=== PATIENT | male | born 1935 | race Caucasian/White ===

== ENCOUNTER 2020-08-19 09:00 | Outpatient (REF) | payer MEDICARE, SELFPAY ==
[2020-08-19 10:08] LABS: MANUAL DIFF FLAG NO
[2020-08-19 10:21] LABS: Basophils Percent Auto 0.7 % (0-2); Eosinophils Absolute Auto 0.3 X10*3/uL (0.0-0.4); Eosinophils Percent Auto 4.3 % (0-4); Hematocrit 45.1 % (42-52); Hemoglobin 15.2 g/dl (14.0-18.0); Imm Gran Abs Auto 0.02 X10*3/uL (0.00-0.03); Imm Gran Pct Auto 0.3 % (0.0-0.4); Mean Corpuscular HGB Conc 33.7 g/dl (31.0-36.0); Mean Platelet Volume 10.7 fL (9.4-12.4); Monocytes Absolute Auto 0.5 X10*3/uL (0.1-1.2); Monocytes Percent Auto 8.7 % (2-11); Platelet Count 210 X10*3/uL (160-400); Red Blood Count 5.07 X10*6/uL (4.60-5.80); Red Cell Distribution Width 13.1 % (11.0-16.0); White Blood Count 5.8 X10*3/uL (4.8-10.8)
[2020-08-19 10:29] LABS: Glucose Urine UA NEG (NEG); Leukocyte Esterase Urine NEG (NEG); Nitrite Urine NEG (NEG); PH 5.5 (5.0-8.0); Specific Gravity - Urine 1.025 (1.005-1.025); Urine Blood 2+ (NEG); Urine Ketones NEG (NEG); Urine Protein NEG (NEG-TRACE)
[2020-08-19 10:31] LABS: Appearance Urine CLEAR; Color Urine YELLOW
[2020-08-19 10:44] LABS: Alanine Aminotransferase 20 U/L (0-40); Albumin Level 4.2 g/dL (3.5-5.0); Alkaline Phosphatase 114 U/L (39-117); Anion Gap 12 (12-20); Aspartate Amino Transferase 15 U/L (5-37); Bilirubin Total 0.9 mg/dL (0.0-1.0); Blood Urea Nitrogen 21 mg/dL (9-16); Calcium 9.3 mg/dL (8.4-10.2); Carbon Dioxide 30 mmol/L (22-29); Chloride 105 mmol/L (96-108); Cholesterol 114 mg/dL; Estimated Glomerular Filt Rate 51; Glucose Fasting 128 mg/dL (60-99); HDL Cholesterol 29 mg/dL; LDL Cholesterol Calculated 70 mg/dl; Potassium 4.3 mmol/l (3.3-5.1); Sodium 143 mmol/L (135-145); Total Protein 6.6 g/dL (6.5-8.0); Triglycerides 78 mg/dL
[2020-08-19 10:49] LABS: Albumin Level 4.2 g/dL (3.5-5.0); Anion Gap 14 (12-20); Blood Urea Nitrogen 22 mg/dL (9-16); Calcium 9.5 mg/dL (8.4-10.2); Carbon Dioxide 29 mmol/L (22-29); Chloride 105 mmol/L (96-108); Estimated Glomerular Filt Rate 50; Magnesium 1.6 mg/dL (1.6-2.6); Phosphorus 2.4 mg/dL (2.7-4.5); Potassium 4.5 mmol/l (3.3-5.1); Sodium 143 mmol/L (135-145)
[2020-08-19 10:51] LABS: Creatinine Urine 157.87 mg/dL; Protein/Creatinine Ratio, Ur 0.05 (<0.2); Total Protein Urine Random 8 mg/dL (<12)
[2020-08-19 10:56] LABS: Creatinine Urine 156.84 mg/dL; Microalbum/Creatinine Ratio Ur 4.4 ug/mg cr; Total Protein Urine Random 8 mg/dL (<12)
[2020-08-19 11:06] LABS: Prostate Specific Antigen Scr 2.42 ng/mL (<0.05-4.0)
[2020-08-19 11:11] LABS: Vitamin D 25-OH Total 35.6 ng/mL (>30)
[2020-08-19 11:16] LABS: Estimated Average Glucose 128 mg/dL; Hemoglobin A1c % 6.1 %
[2020-08-19 11:22] LABS: Squamous Epithelial Cell Urine TRACE /LPF; WBC Urine 0 /HPF (0-4)
[2020-08-19 11:23] LABS: Folate 5.3 ng/mL (> or = 4.0)
[2020-08-19 13:38] LABS: Renal w Reflex Lab Use Only Order verified
[2020-08-21 16:37] LABS: Calcium (PTHI) 9.2 mg/dL (8.6-10.3); PTHI 61 pg/mL (14-64)
== END 2020-08-19 09:01 | disposition home or self-care (01) ==
LOC: HO.LAB 09:00
PROVIDERS: Absent Provider Internal Medicine Nephrology; PCP Internal Medicine; Visit Provider Internal Medicine
DX: Z00.00 Encounter for general adult medical examination without abnormal findings (principal); E11.22 Type 2 diabetes mellitus with diabetic chronic kidney disease; I12.9 Hypertensive chronic kidney disease with stage 1 through stage 4 chronic kidney disease, or unspecified chronic kidney disease; N18.30 Chronic kidney disease, stage 3 unspecified; I25.10 Atherosclerotic heart disease of native coronary artery without angina pectoris; E78.00 Pure hypercholesterolemia, unspecified; R35.1 Nocturia; E87.1 Hypo-osmolality and hyponatremia; N25.81 Secondary hyperparathyroidism of renal origin
CPT/HCPCS: 36415; 80051; 80053; 80061; 81001; 81003; 81015; 82040; 82043; 82306; 82310; 82565; 82746; 83036; 83735; 83970; 84100; 84153; 84156; 84520; 85025

== ENCOUNTER 2020-10-30 10:05 | Outpatient (REF) | payer MEDICARE, SELFPAY ==
[2020-10-30 11:35] LABS: Anion Gap 11 (12-20); Blood Urea Nitrogen 21 mg/dL (9-16); Calcium 9.2 mg/dL (8.4-10.2); Carbon Dioxide 31 mmol/L (22-29); Chloride 103 mmol/L (96-108); Estimated Glomerular Filt Rate 45; Glucose Random 126 mg/dL (60-115); Magnesium 1.5 mg/dL (1.6-2.6); Potassium 4.2 mmol/l (3.3-5.1); Sodium 141 mmol/L (135-145)
[2020-10-30 11:59] LABS: Vitamin D 25-OH Total 32.1 ng/mL (>30)
== END 2020-10-30 10:06 | disposition home or self-care (01) ==
LOC: HO.LAB 10:05
PROVIDERS: PCP Internal Medicine; Visit Provider Internal Medicine
DX: E83.42 Hypomagnesemia (principal); E55.9 Vitamin D deficiency, unspecified; I12.9 Hypertensive chronic kidney disease with stage 1 through stage 4 chronic kidney disease, or unspecified chronic kidney disease; N18.9 Chronic kidney disease, unspecified
CPT/HCPCS: 80048; 82306; 83735

== ENCOUNTER 2021-01-30 10:04 | Outpatient (REF) | payer MEDICARE, SELFPAY ==
[2021-01-30 13:38] LABS: MANUAL DIFF FLAG NO
[2021-01-30 13:53] LABS: Glucose Urine UA NEG (NEG); Leukocyte Esterase Urine NEG (NEG); Nitrite Urine NEG (NEG); PH 5.5 (5.0-8.0); Specific Gravity - Urine 1.025 (1.005-1.025); Urine Blood TRACE (NEG); Urine Ketones NEG (NEG); Urine Protein NEG (NEG-TRACE)
[2021-01-30 13:57] LABS: Appearance Urine CLEAR; Color Urine YELLOW
[2021-01-30 13:58] LABS: Renal w Reflex-LAB USE ONLY Order Verified
[2021-01-30 13:59] LABS: Basophils Percent Auto 0.7 % (0-2); Eosinophils Absolute Auto 0.2 X10*3/uL (0.0-0.4); Eosinophils Percent Auto 2.7 % (0-4); Hematocrit 45.3 % (42-52); Hemoglobin 15.2 g/dl (14.0-18.0); Imm Gran Abs Auto 0.02 X10*3/uL (0.00-0.03); Imm Gran Pct Auto 0.3 % (0.0-0.4); Lymphocytes Percent Auto 16.6 % (20-40); Mean Corpuscular HGB Conc 33.6 g/dl (31.0-36.0); Mean Corpuscular Hemoglobin 29.9 pg (27.0-33.0); Mean Corpuscular Volume 89.2 fL (80-98); Mean Platelet Volume 11.1 fL (9.4-12.4); Monocytes Absolute Auto 0.6 X10*3/uL (0.1-1.2); Monocytes Percent Auto 9.2 % (2-11); Neutrophils Absolute Auto 4.2 X10*3/uL (2.0-8.3); Neutrophils Percent Auto 70.5 % (45-73); Platelet Count 202 X10*3/uL (160-400); Red Blood Count 5.08 X10*6/uL (4.60-5.80); Red Cell Distribution Width 13.2 % (11.0-16.0)
[2021-01-30 14:02] LABS: Estimated Average Glucose 123 mg/dL; Hemoglobin A1c % 5.9 %
[2021-01-30 14:07] LABS: Albumin Level 4.2 g/dL (3.5-5.0); Anion Gap 14 (12-20); Blood Urea Nitrogen 21 mg/dL (9-16); Calcium 9.3 mg/dL (8.4-10.2); Carbon Dioxide 30 mmol/L (22-29); Chloride 104 mmol/L (96-108); Estimated Glomerular Filt Rate 47; Magnesium 1.9 mg/dL (1.6-2.6); Phosphorus 2.3 mg/dL (2.7-4.5); Potassium 4.4 mmol/L (3.3-5.1); Sodium 144 mmol/L (135-145)
[2021-01-30 14:09] LABS: Alanine Aminotransferase 26 U/L (0-40); Albumin Level 4.2 g/dL (3.5-5.0); Alkaline Phosphatase 98 U/L (39-117); Anion Gap 12 (12-20); Aspartate Amino Transferase 16 U/L (5-37); Bilirubin Total 0.8 mg/dL (0.0-1.0); Blood Urea Nitrogen 20 mg/dL (9-16); Calcium 9.3 mg/dL (8.4-10.2); Carbon Dioxide 32 mmol/L (22-29); Chloride 103 mmol/L (96-108); Estimated Glomerular Filt Rate 46; Glucose Fasting 118 mg/dL (60-99); Potassium 4.6 mmol/L (3.3-5.1); Sodium 142 mmol/L (135-145); Total Protein 6.7 g/dL (6.5-8.0)
[2021-01-30 14:17] LABS: Bacteria Urine TRACE /LPF; Squamous Epithelial Cell Urine TRACE /LPF
[2021-01-30 14:21] LABS: Renal w Reflex Lab Use Only Order verified
[2021-01-30 14:26] LABS: Vitamin D 25-OH Total 31.5 ng/mL (>30)
[2021-01-30 14:45] LABS: Creatinine Urine 208.08 mg/dL; Microalbum/Creatinine Ratio Ur 3.8 ug/mg cr; Protein/Creatinine Ratio, Ur 0.05 (<0.2); Total Protein Urine Random 11 mg/dL (<12)
[2021-01-31 18:21] LABS: Calcium (PTHI) 9.4 mg/dL (8.6-10.3); PTHI 53 pg/mL (14-64)
== END 2021-01-30 10:05 | disposition home or self-care (01) ==
LOC: HO.10HDL 10:04
PROVIDERS: Absent Provider Internal Medicine; Visit Provider Internal Medicine Nephrology
DX: I12.9 Hypertensive chronic kidney disease with stage 1 through stage 4 chronic kidney disease, or unspecified chronic kidney disease (principal); N18.30 Chronic kidney disease, stage 3 unspecified; E87.1 Hypo-osmolality and hyponatremia; N25.81 Secondary hyperparathyroidism of renal origin
CPT/HCPCS: 36415; 80051; 80053; 81001; 82040; 82043; 82306; 82310; 82565; 83036; 83735; 83970; 84100; 84156; 84520; 85025

== ENCOUNTER 2021-08-15 08:52 | Outpatient (REF) | payer MEDICARE, SELFPAY ==
[2021-08-15 10:18] LABS: MANUAL DIFF FLAG NO
[2021-08-15 10:27] LABS: Basophils Percent Auto 0.6 % (0-2); Eosinophils Absolute Auto 0.2 X10*3/uL (0.0-0.4); Eosinophils Percent Auto 3.5 % (0-4); Hematocrit 45.1 % (42-52); Hemoglobin 15.6 g/dl (14.0-18.0); Imm Gran Abs Auto 0.03 X10*3/uL (0.00-0.03); Imm Gran Pct Auto 0.5 % (0.0-0.4); Mean Corpuscular HGB Conc 34.6 g/dl (31.0-36.0); Mean Corpuscular Hemoglobin 30.5 pg (27.0-33.0); Mean Corpuscular Volume 88.1 fL (80-98); Mean Platelet Volume 10.5 fL (9.4-12.4); Monocytes Absolute Auto 0.6 X10*3/uL (0.1-1.2); Monocytes Percent Auto 9.7 % (2-11); Neutrophils Absolute Auto 4.4 X10*3/uL (2.0-8.3); Neutrophils Percent Auto 69.7 % (45-73); Platelet Count 195 X10*3/uL (160-400); Red Blood Count 5.12 X10*6/uL (4.60-5.80); Red Cell Distribution Width 12.9 % (11.0-16.0); White Blood Count 6.4 X10*3/uL (4.8-10.8)
[2021-08-15 10:51] LABS: Alanine Aminotransferase 30 U/L (0-40); Albumin Level 4.2 g/dL (3.5-5.0); Alkaline Phosphatase 91 U/L (39-117); Anion Gap 11 (12-20); Aspartate Amino Transferase 20 U/L (5-37); Bilirubin Total 0.9 mg/dL (0.0-1.0); Blood Urea Nitrogen 27 mg/dL (9-16); Calcium 9.2 mg/dL (8.4-10.2); Carbon Dioxide 30 mmol/L (22-29); Chloride 106 mmol/L (96-108); Cholesterol 110 mg/dL; Estimated Glomerular Filt Rate 45; Glucose Fasting 112 mg/dL (60-99); HDL Cholesterol 24 mg/dL; LDL Cholesterol Calculated 68 mg/dl; Sodium 143 mmol/L (135-145); Total Protein 6.5 g/dL (6.5-8.0); Triglycerides 93 mg/dL
[2021-08-15 10:55] LABS: Appearance Urine CLEAR; Color Urine YELLOW; Glucose Urine UA NEG (NEG); Leukocyte Esterase Urine NEG (NEG); Nitrite Urine NEG (NEG); Specific Gravity - Urine >= 1.030 (1.005-1.025); Urine Blood NEG (NEG); Urine Ketones NEG (NEG); Urine Protein NEG (NEG-TRACE)
[2021-08-15 10:59] LABS: Prostate Specific Antigen Scr 2.75 ng/mL (<0.05-4.0)
[2021-08-15 11:29] LABS: Creatinine Urine 137.35 mg/dL; Microalbum/Creatinine Ratio Ur 4.3 ug/mg cr
[2021-08-15 12:20] LABS: Estimated Average Glucose 126 mg/dL
== END 2021-08-15 08:53 | disposition home or self-care (01) ==
LOC: HO.10HDL 08:52
PROVIDERS: Visit Provider Internal Medicine
DX: Z12.5 Encounter for screening for malignant neoplasm of prostate (principal); I25.10 Atherosclerotic heart disease of native coronary artery without angina pectoris; I12.9 Hypertensive chronic kidney disease with stage 1 through stage 4 chronic kidney disease, or unspecified chronic kidney disease; N18.9 Chronic kidney disease, unspecified; E78.00 Pure hypercholesterolemia, unspecified; N40.0 Benign prostatic hyperplasia without lower urinary tract symptoms; R73.03 Prediabetes
CPT/HCPCS: 36415; 80053; 80061; 81003; 82043; 83036; 84153; 85025

== ENCOUNTER 2021-10-16 10:17 | Outpatient (REF) | payer MEDICARE, SELFPAY ==
[2021-10-16 13:51] LABS: MANUAL DIFF FLAG NO
[2021-10-16 14:00] LABS: Basophils Percent Auto 0.7 % (0-2); Eosinophils Absolute Auto 0.2 X10*3/uL (0.0-0.4); Eosinophils Percent Auto 2.5 % (0-4); Hematocrit 44.2 % (42.0-52.0); Imm Gran Abs Auto 0.02 X10*3/uL (0.00-0.03); Imm Gran Pct Auto 0.3 % (0.0-0.4); Lymphocytes Absolute Auto 0.9 X10*3/uL (1.2-4.9); Lymphocytes Percent Auto 15.2 % (20-40); Mean Corpuscular HGB Conc 33.9 g/dl (31.0-36.0); Mean Corpuscular Hemoglobin 30.2 pg (27.0-33.0); Mean Corpuscular Volume 89.1 fL (80.0-98.0); Mean Platelet Volume 11.2 fL (9.4-12.4); Monocytes Absolute Auto 0.5 X10*3/uL (0.1-1.2); Monocytes Percent Auto 8.2 % (2-11); Neutrophils Absolute Auto 4.5 x10*3/uL (2.0-8.3); Neutrophils Percent Auto 73.1 % (45-73); Platelet Count 189 X10*3/uL (160-400); Red Blood Count 4.96 X10*6/uL (4.60-5.80); Red Cell Distribution Width 13.2 % (11.0-16.0); White Blood Count 6.1 X10*3/uL (4.8-10.8)
[2021-10-16 14:06] LABS: Appearance Urine CLEAR; Color Urine YELLOW; Glucose Urine UA NEG (NEG); Leukocyte Esterase Urine NEG (NEG); Nitrite Urine NEG (NEG); PH 5.5 (5.0-8.0); Specific Gravity - Urine 1.025 (1.005-1.025); Urine Blood 2+ (NEG); Urine Ketones NEG (NEG); Urine Protein NEG (NEG-TRACE)
[2021-10-16 14:15] LABS: Anion Gap 14 (12-20); Blood Urea Nitrogen 23 mg/dL (9-16); Calcium 9.3 mg/dL (8.4-10.2); Carbon Dioxide 27 mmol/L (22-29); Chloride 106 mmol/L (96-108); Estimated Glomerular Filt Rate 48; Magnesium 1.6 mg/dL (1.6-2.6); Phosphorus 1.7 mg/dL (2.7-4.5); Potassium 3.6 mmol/L (3.3-5.1); Sodium 143 mmol/L (135-145)
[2021-10-16 14:25] LABS: Bacteria Urine TRACE /LPF
[2021-10-16 14:26] LABS: Creatinine Urine 203.45 mg/dL; Microalbum/Creatinine Ratio Ur 6.8 ug/mg cr; Total Protein Urine Random 10 mg/dL (<12)
[2021-10-16 14:35] LABS: Vitamin D 25-OH Total 27.6 ng/mL (>30)
[2021-10-17 16:31] LABS: Calcium (PTHI) 9.5 mg/dL (8.6-10.3); PTHI 50 pg/mL (14-64)
== END 2021-10-16 10:18 | disposition home or self-care (01) ==
LOC: HO.10HDL 10:17
PROVIDERS: Visit Provider Internal Medicine Nephrology
DX: I12.9 Hypertensive chronic kidney disease with stage 1 through stage 4 chronic kidney disease, or unspecified chronic kidney disease (principal); N18.31 Chronic kidney disease, stage 3a; Z79.899 Other long term (current) drug therapy
CPT/HCPCS: 36415; 80051; 81001; 82040; 82043; 82306; 82310; 82565; 83735; 83970; 84100; 84156; 84520; 85025; 87086

== ENCOUNTER 2022-05-21 08:59 | Outpatient (REF) | payer MEDICARE, SELFPAY ==
[2022-05-21 10:35] LABS: MANUAL DIFF FLAG NO
[2022-05-21 10:43] LABS: Basophils Percent Auto 0.7 % (0-2); Eosinophils Absolute Auto 0.3 X10*3/uL (0.0-0.4); Eosinophils Percent Auto 4.6 % (0-4); Hematocrit 46.6 % (42.0-52.0); Hemoglobin 15.9 g/dl (14.0-18.0); Imm Gran Abs Auto 0.04 X10*3/uL (0.00-0.03); Imm Gran Pct Auto 0.7 % (0.0-0.4); Lymphocytes Absolute Auto 0.9 X10*3/uL (1.2-4.9); Lymphocytes Percent Auto 14.1 % (20-40); Mean Corpuscular HGB Conc 34.1 g/dl (31.0-36.0); Mean Corpuscular Volume 87.9 fL (80.0-98.0); Monocytes Absolute Auto 0.5 X10*3/uL (0.1-1.2); Monocytes Percent Auto 8.7 % (2-11); Neutrophils Absolute Auto 4.4 x10*3/uL (2.0-8.3); Neutrophils Percent Auto 71.2 % (45-73); Platelet Count 205 X10*3/uL (160-400); Red Cell Distribution Width 13.6 % (11.0-16.0); White Blood Count 6.1 X10*3/uL (4.8-10.8)
[2022-05-21 10:54] LABS: Alanine Aminotransferase 37 U/L (0-40); Alkaline Phosphatase 92 U/L (39-117); Anion Gap 11 (12-20); Aspartate Amino Transferase 20 U/L (5-37); Bilirubin Total 0.7 mg/dL (0.0-1.0); Blood Urea Nitrogen 18 mg/dL (9-16); Calcium 8.9 mg/dL (8.4-10.2); Carbon Dioxide 28 mmol/L (22-29); Chloride 104 mmol/L (96-108); Estimated Glomerular Filt Rate 41; Glucose Random 186 mg/dL (60-115); Potassium 4.3 mmol/L (3.3-5.1); Sodium 139 mmol/L (135-145); Total Protein 6.6 g/dL (6.5-8.0)
[2022-05-21 10:56] LABS: Estimated Average Glucose 126 mg/dL
[2022-05-21 11:13] LABS: Creatinine Urine 119.67 mg/dL; Microalbum/Creatinine Ratio Ur 5.8 ug/mg cr
== END 2022-05-21 09:00 | disposition home or self-care (01) ==
LOC: HO.10HDL 08:59
PROVIDERS: Visit Provider Internal Medicine
DX: I25.10 Atherosclerotic heart disease of native coronary artery without angina pectoris (principal); I12.9 Hypertensive chronic kidney disease with stage 1 through stage 4 chronic kidney disease, or unspecified chronic kidney disease; N18.9 Chronic kidney disease, unspecified; M10.9 Gout, unspecified; R73.03 Prediabetes
CPT/HCPCS: 36415; 80053; 82043; 83036; 85025

== ENCOUNTER 2022-07-17 09:17 | Outpatient (REF) | payer MEDICARE, SELFPAY ==
[2022-07-17 10:42] LABS: Appearance Urine Clear; Color Urine Yellow; Glucose Urine UA Negative (Negative); Leukocyte Esterase Urine Trace (Negative); Nitrite Urine Negative (Negative); PH 5.5 (5.0-9.0); UMIC TRIGGER UA YES; Urine Blood Moderate (2+) (Negative); Urine Ketones Negative (Negative); Urine Protein Negative (Neg-Trace)
[2022-07-17 10:45] LABS: Bacteria Urine None Seen (None Seen); Hyaline Casts Urine 0-2 /LPF (0-2); Squamous Epithelial Cell Urine 0-2 /HPF (0-2); WBC Urine 0-5 /HPF (0-5)
[2022-07-17 11:04] LABS: Hematocrit 46.2 % (42.0-52.0); Hemoglobin 15.6 g/dl (14.0-18.0); Mean Corpuscular HGB Conc 33.8 g/dl (31.0-36.0); Mean Corpuscular Hemoglobin 29.3 pg (27.0-33.0); Mean Corpuscular Volume 86.8 fL (80.0-98.0); Mean Platelet Volume 10.3 fL (9.4-12.4); Platelet Count 189 X10*3/uL (160-400); Red Blood Count 5.32 X10*6/uL (4.60-5.80); Red Cell Distribution Width 13.1 % (11.0-16.0); White Blood Count 6.8 X10*3/uL (4.8-10.8)
[2022-07-17 11:24] LABS: Albumin Level 4.2 g/dL (3.5-5.0); Anion Gap 15 (12-20); Blood Urea Nitrogen 26 mg/dL (9-16); Calcium 9.5 mg/dL (8.4-10.2); Carbon Dioxide 27 mmol/L (22-29); Chloride 103 mmol/L (96-108); Estimated Glomerular Filt Rate 40; Magnesium 1.8 mg/dL (1.6-2.6); Phosphorus 2.7 mg/dL (2.7-4.5); Potassium 4.4 mmol/L (3.3-5.1); Sodium 141 mmol/L (135-145)
[2022-07-17 11:45] LABS: Creatinine Urine 142.42 mg/dL; Microalbum/Creatinine Ratio Ur 6.3 ug/mg cr; Total Protein Urine Random < 7 mg/dL (<12)
[2022-07-17 11:49] LABS: Vitamin D 25-OH Total 30.3 ng/mL (>30)
[2022-07-19 13:16] LABS: Calcium (PTHI) 9.4 mg/dL (8.6-10.3); PTHI 86 pg/mL (16-77)
== END 2022-07-17 09:18 | disposition home or self-care (01) ==
LOC: HO.10HDL 09:17
PROVIDERS: Visit Provider Internal Medicine Nephrology
DX: I12.9 Hypertensive chronic kidney disease with stage 1 through stage 4 chronic kidney disease, or unspecified chronic kidney disease (principal); N18.31 Chronic kidney disease, stage 3a; N25.0 Renal osteodystrophy; M10.9 Gout, unspecified
CPT/HCPCS: 36415; 80051; 81001; 82040; 82043; 82306; 82310; 82565; 83735; 83970; 84100; 84156; 84520; 85027; 87086

== ENCOUNTER 2022-08-28 09:51 | Outpatient (REF) | payer MEDICARE, SELFPAY ==
[2022-08-28 10:22] LABS: MANUAL DIFF FLAG NO
[2022-08-28 10:33] LABS: Basophils Percent Auto 0.7 % (0-2); Eosinophils Absolute Auto 0.3 X10*3/uL (0.0-0.4); Eosinophils Percent Auto 4.7 % (0-4); Hematocrit 44.5 % (42.0-52.0); Imm Gran Abs Auto 0.03 X10*3/uL (0.00-0.03); Imm Gran Pct Auto 0.5 % (0.0-0.4); Lymphocytes Percent Auto 16.1 % (20-40); Mean Corpuscular HGB Conc 33.7 g/dl (31.0-36.0); Mean Corpuscular Hemoglobin 29.5 pg (27.0-33.0); Mean Corpuscular Volume 87.6 fL (80.0-98.0); Mean Platelet Volume 10.3 fL (9.4-12.4); Monocytes Absolute Auto 0.6 X10*3/uL (0.1-1.2); Monocytes Percent Auto 9.5 % (2-11); Neutrophils Absolute Auto 4.1 x10*3/uL (2.0-8.3); Neutrophils Percent Auto 68.5 % (45-73); Platelet Count 199 X10*3/uL (160-400); Red Blood Count 5.08 X10*6/uL (4.60-5.80); Red Cell Distribution Width 13.3 % (11.0-16.0)
[2022-08-28 10:40] LABS: Estimated Average Glucose 123 mg/dL; Hemoglobin A1C 150.9839 umol/L; Hemoglobin A1c % 5.9 %
[2022-08-28 10:56] LABS: Alanine Aminotransferase 19 U/L (0-40); Alkaline Phosphatase 83 U/L (39-117); Anion Gap 13 (12-20); Aspartate Amino Transferase 16 U/L (5-37); Bilirubin Total 0.9 mg/dL (0.0-1.0); Blood Urea Nitrogen 22 mg/dL (9-16); Calcium 9.4 mg/dL (8.4-10.2); Carbon Dioxide 29 mmol/L (22-29); Chloride 104 mmol/L (96-108); Cholesterol 127 mg/dL; Estimated Glomerular Filt Rate 48; Glucose Fasting 115 mg/dL (60-99); HDL Cholesterol 29 mg/dL; LDL Cholesterol Calculated 82 mg/dl; Potassium 4.3 mmol/L (3.3-5.1); Sodium 142 mmol/L (135-145); Total Protein 6.3 g/dL (6.5-8.0); Triglycerides 80 mg/dL
[2022-08-28 11:18] LABS: Prostate Specific Antigen Scr 2.67 ng/mL (<0.05-4.0)
[2022-08-28 14:38] LABS: Creatinine Urine 177.23 mg/dL
== END 2022-08-28 09:52 | disposition home or self-care (01) ==
LOC: HO.10HDL 09:51
PROVIDERS: Visit Provider Internal Medicine
DX: Z12.5 Encounter for screening for malignant neoplasm of prostate (principal); N18.9 Chronic kidney disease, unspecified; I25.10 Atherosclerotic heart disease of native coronary artery without angina pectoris; E78.00 Pure hypercholesterolemia, unspecified; R73.03 Prediabetes
CPT/HCPCS: 36415; 80053; 80061; 82043; 83036; 84153; 85025

== ENCOUNTER 2023-03-04 08:40 | Outpatient (REF) | payer MEDICARE, SELFPAY ==
[2023-03-04 10:37] LABS: Estimated Average Glucose 126 mg/dL
[2023-03-04 10:38] LABS: Alanine Aminotransferase 23 U/L (0-40); Albumin Level 4.1 g/dL (3.5-5.0); Alkaline Phosphatase 94 U/L (39-117); Anion Gap 12 (12-20); Aspartate Amino Transferase 16 U/L (5-37); Blood Urea Nitrogen 24 mg/dL (9-16); Calcium 9.5 mg/dL (8.4-10.2); Carbon Dioxide 30 mmol/L (22-29); Chloride 104 mmol/L (96-108); Estimated Glomerular Filt Rate 42; Glucose Random 150 mg/dL (60-115); Potassium 4.1 mmol/L (3.3-5.1); Sodium 142 mmol/L (135-145); Total Protein 6.6 g/dL (6.5-8.0)
[2023-03-04 12:18] LABS: Microalbum/Creatinine Ratio Ur 19.7 ug/mg cr
== END 2023-03-04 08:41 | disposition home or self-care (01) ==
LOC: HO.10HDL 08:40
PROVIDERS: Visit Provider Internal Medicine
DX: I12.9 Hypertensive chronic kidney disease with stage 1 through stage 4 chronic kidney disease, or unspecified chronic kidney disease (principal); E11.22 Type 2 diabetes mellitus with diabetic chronic kidney disease; N18.9 Chronic kidney disease, unspecified; I25.10 Atherosclerotic heart disease of native coronary artery without angina pectoris
CPT/HCPCS: 36415; 80053; 82043; 83036

== ENCOUNTER 2023-06-28 09:00 | Outpatient (REF) | payer MEDICARE, SELFPAY ==
[2023-06-28 10:41] LABS: MANUAL DIFF FLAG NO
[2023-06-28 10:48] LABS: Basophils Absolute Auto 0.1 X10*3/uL (0.0-0.2); Basophils Percent Auto 0.7 % (0-2); Eosinophils Absolute Auto 0.3 X10*3/uL (0.0-0.4); Eosinophils Percent Auto 3.6 % (0-4); Hematocrit 47.8 % (42.0-52.0); Imm Gran Abs Auto 0.08 X10*3/uL (0.00-0.03); Imm Gran Pct Auto 1.1 % (0.0-0.4); Lymphocytes Absolute Auto 0.9 X10*3/uL (1.2-4.9); Lymphocytes Percent Auto 12.6 % (20-40); Mean Corpuscular HGB Conc 33.5 g/dl (31.0-36.0); Mean Corpuscular Hemoglobin 29.9 pg (27.0-33.0); Mean Corpuscular Volume 89.2 fL (80.0-98.0); Mean Platelet Volume 10.8 fL (9.4-12.4); Monocytes Absolute Auto 0.7 X10*3/uL (0.1-1.2); Monocytes Percent Auto 8.8 % (2-11); Neutrophils Absolute Auto 5.5 x10*3/uL (2.0-8.3); Neutrophils Percent Auto 73.2 % (45-73); Platelet Count 192 X10*3/uL (160-400); Red Blood Count 5.36 X10*6/uL (4.60-5.80); Red Cell Distribution Width 13.1 % (11.0-16.0); White Blood Count 7.5 X10*3/uL (4.8-10.8)
[2023-06-28 10:51] LABS: Appearance Urine Clear; Color Urine Yellow; Glucose Urine UA Negative (Negative); Leukocyte Esterase Urine Trace (Negative); Nitrite Urine Negative (Negative); PH 5.5 (5.0-9.0); UMIC TRIGGER UA YES; Urine Blood Large (3+) (Negative); Urine Ketones Negative (Negative); Urine Protein Negative (Neg-Trace)
[2023-06-28 10:57] LABS: Bacteria Urine None Seen (None Seen); Hyaline Casts Urine 0-2 /LPF (0-2); RBC Urine >20 /HPF (0-2)
[2023-06-28 11:11] LABS: Alanine Aminotransferase 20 U/L (0-40); Albumin Level 4.1 g/dL (3.5-5.0); Alkaline Phosphatase 75 U/L (39-117); Anion Gap 13 (12-20); Aspartate Amino Transferase 18 U/L (5-37); Bilirubin Total 0.9 mg/dL (0.0-1.0); Blood Urea Nitrogen 44 mg/dL (9-16); Calcium 9.5 mg/dL (8.4-10.2); Carbon Dioxide 28 mmol/L (22-29); Chloride 106 mmol/L (96-108); Estimated Glomerular Filt Rate 41; Glucose Random 154 mg/dL (60-115); Potassium 4.6 mmol/L (3.3-5.1); Sodium 142 mmol/L (135-145); Total Protein 7.1 g/dL (6.5-8.0); Uric Acid 8.7 mg/dL (3.4-7.0)
[2023-06-28 11:27] LABS: Estimated Average Glucose 120 mg/dL; Hemoglobin A1c % 5.8 % (<6.0)
[2023-06-28 12:10] LABS: Creatinine Urine 141.41 mg/dL; Microalbum/Creatinine Ratio Ur 18.3 ug/mg cr (<30)
== END 2023-06-28 09:01 | disposition home or self-care (01) ==
LOC: HO.10HDL 09:00
PROVIDERS: Visit Provider Internal Medicine
DX: I25.10 Atherosclerotic heart disease of native coronary artery without angina pectoris (principal); R73.03 Prediabetes; I12.9 Hypertensive chronic kidney disease with stage 1 through stage 4 chronic kidney disease, or unspecified chronic kidney disease; N18.9 Chronic kidney disease, unspecified
CPT/HCPCS: 36415; 80053; 81001; 82043; 83036; 84550; 85025

== ENCOUNTER 2023-06-29 09:48 | Outpatient (REF) | payer MEDICARE, SELFPAY ==
[2023-06-29 10:07] LABS: Urine Cytology See Pathology rpt
== END 2023-06-29 09:49 | disposition home or self-care (01) ==
LOC: HO.10HDLNP 09:48
PROVIDERS: Visit Provider Internal Medicine
DX: R31.9 Hematuria, unspecified (principal)
CPT/HCPCS: 88112

== ENCOUNTER 2023-08-18 08:52 | Outpatient (AMB) | payer MEDICARE, SELFPAY ==
--- NOTE | 2023-08-18 08:53 | A.OFFVIS_ITS ---
Intake Intake Visit Reasons: Abnormal pathology Intake Note: NEW Patient presents today to established treatment for Abnormal Pathology: Meds- None Allergies to Antibiotic- No Known Allergies Blood Thinner- ASPIRIN Lithographic Proofer Required: No Accompanied by: Self / Same As Patient Allergies No Known Allergies [No Known Allergies*] Allergy (Verified 08/18/23 09:24) HPI HPI Comments History of Present Illness Details Buck is an 88-year-old male who presents today to establish as a new patient for an evaluation for hematuria and atypical urine of abnormal cytology. 08/18/23? He was referred due to hematuria by his PCP. His PCP ordered urine cytology which came back atypical urothelial cells. He has a past medical history significant for coronary artery disease and chronic kidney disease. He had a cardiac bypass surgery in 2001. He is followed by nephrology. Patient is on Aspirin 325 mg daily. Patient states that a year ago he saw blood in the urine after lifting something. He also had burning sensation for one to two days at that time, he was not treated with antibiotics but states burning symptoms resolved. He is a former smoker started at the age of 15 or 16 with cigarettes and changed to cigars as he got older. He stopped smoking 35 years ago. Appears younger than stated age. He states that he stays active which includes dancing few times a week. I reviewed the pathology report results from 06/29/23 revealed atypical urothelial cells. I reviewed the PSA results from 08/28/22 revealed 2.62 ng/mL. I reviewed serum BUN and creatinine results from 06/28/23 revealed 44 and 1.60. Evaluation today?UA?Leukocytes: negative; blood: 200 Catarino. Plan: Ordered CT of the abdomen/pelvis without IV contrast due to renal function. Follow-up in office Cystoscopy with prostate exam at that time. Repeat urine cytology was ordered. [facility] Medical History (Updated 08/19/23 @ 04:06 by Veena Yun MD) History of hematuria Surgical History FH: cholecystectomy Hx of hernia repair History of quadruple bypass Family History Sister Bipolar 1 disorder Mother Cancer Social History Alcohol intake: current Patient Tobacco Use Status: Never used Tobacco Review of Systems Const All systems reviewed & are unremarkable except as noted in HPI and below Reports no additional complaints Eyes Reports no additional complaints ENT Reports no additional complaints Card Denies dyspnea Resp Denies cough and Denies dyspnea GI Reports no additional complaints Musc Reports no additional complaints Skin/Breast Denies rash and Denies unusual bruising Neuro Reports no additional complaints Psych Reports no additional complaints Endo Reports no additional complaints Dell/Lymph Reports no additional complaints Aller/Immun Reports no additional complaints Physical Exam Const General: healthy appearing, no acute distress and well developed Orientation/consciousness: patient oriented x3 HEENT Head: Yes normocephalic and Yes atraumatic Eyes Conjunctivae: conjunctivae normal Neck Neck: Yes normal visual inspection Chest Chest palpation & inspection: normal inspection of the chest Resp Effort & Inspection: normal respiratory effort Cardio Rate: regular rate GI Inspection: Yes normal to inspection Palpation (GI): Soft to palpation Skin General skin exam: no rashes or lesions noted Neuro General: patient oriented x3 Extrem General: No pedal edema Psych Appearance: grossly normal Affect: normal affect Results AMB Urinalysis, Automated UA Leukoctes 0 Zoey/uL Last Edit by FELI Tellez on 08/18/23 09:34 UA Nitrite Negative Last Edit by FELI Tellez on 08/18/23 09:34 UA Urobilinogen 0.2 mg/dL Last Edit by FELI Tellez on 08/18/23 09:3 4 UA Protein 0 mg/dL Last Edit by FELI Tellez on 08/18/23 09:34 UA pH 5.0 Last Edit by FELI Tellez on 08/18/23 09:34 UA Blood 200 Catarino/uL Last Edit by FELI Tellez on 08/18/23 09:34 3+ Juan David Downs 08/18/23 09:34 UA Specific [place] 1.025 Last Edit by FELI Tellez on 08/18/23 09: 34 UA Ketone Negative Last Edit by FELI Tellez on 08/18/23 09:34 UA Bilirubin 0 mg/dL Last Edit by FELI Tellez on 08/18/23 09:34 UA Glucose 0 mg/dL Last Edit by FELI Tellez on 08/18/23 09:34 Results Reviewed Results Reviewed: Laboratory Last Values Urine pH (Auto) 5.0 08/18/23 09:33 Specific [place] (Auto) 1.025 08/18/23 09:33 Urine Protein (Auto) 0 mg/dL 08/18/23 09:33 Glucose (UA)(Auto) 0 mg/dL 08/18/23 09:33 Urine Ketones (Auto) Negative 08/18/23 09:33 Urine Blood (Auto) 200 Catarino/uL 08/18/23 09:33 Urine Nitrite (Auto) Negative 08/18/23 09:33 Urine Bilirubin (Auto) 0 mg/dL 08/18/23 09:33 Urine Urobilinogen (Auto) 0.2 mg/dL 08/18/23 09:33 Leukocyte Esterase (Auto) 0 Zoey/uL 08/18/23 09:33 Diagnosis Urine, cytology: Atypical urothelial cells. COMMENT: Review of the cytology preparation demonstrates a cellular specimen composed of squamous and degenerated urothelial cells, some with marked cytologic atypia including nuclear hyperchromasia, increased nuclear to cytoplasmic ratios and irregular nuclear membranes. Red blood cells and acute inflammatory cells are noted. Clinical follow up is recommended. Clinical History Hematuria Material Received Urine Gross Description 47 cc clear yellow fluid Assessment & Plan Assessment & Plan (1) Hematuria: Code(s): R31.9 - Hematuria, unspecified (2) Urine cytology abnormal: Code(s): R82.89 - Other abnormal findings on cytological and histological examination of urine Plan Ordered CT of the abdomen/pelvis without IV contrast due to renal function. Follow-up in office Cystoscopy with prostate exam at that time. Repeat urine cytology was ordered. Orders: Orders AMB Urinalysis Automated 08/18/23 Z13.9 - Encounter for screening, unspecified Urine Cytology 08/18/23 Z87.448 - Personal history of other diseases of urinary system Patient Instructions: The patient had an opportunity to ask questions regarding treatment plan. All questions were answered. Imaging, Laboratory studies and physical exam results were discussed and reviewed in detail. No major barriers to understanding were identified. The patient expressed understanding and agreement with the above treatment plan.? ? ? The patient is aware they should contact our office by phone for worsening of th eir current condition or the appearance of new symptoms. Compliance is encouraged with any medications and followup testing that is ordered.? ? ? It is a privilege to be allowed the opportunity to participate in the urologic care of your patient. If you have any questions or concerns regarding treatment for the above conditions please do not hesitate to contact me. The office telephone contact is [phone].? ? ? This note is constructed in part using voice recognition software. While every effort has been made to ensure accuracy sales commissions analyst errors may have been included.? ? ? Yours sincerely,? ? ? Veena Yun MD? Coding Level of Care Code New Pt Level 4 (60274) Diagnoses Hematuria R31.9 Urine cytology abnormal R82.89
== END 2023-08-18 10:28 | disposition home or self-care (01) ==
PROVIDERS: PCP Internal Medicine; Visit Provider Urology
DX: R31.9 Hematuria, unspecified (principal); R82.89 Other abnormal findings on cytological and histological examination of urine
CPT/HCPCS: 99204

== ENCOUNTER 2023-08-18 08:52 | Outpatient (REF) | payer MEDICARE, SELFPAY ==
[2023-08-18 16:40] LABS: Urine Cytology See Pathology rpt
== END 2023-08-18 08:53 | disposition home or self-care (01) ==
LOC: HO.LAB 08:52
PROVIDERS: PCP Internal Medicine; Visit Provider Urology
DX: R31.9 Hematuria, unspecified (principal); R82.89 Other abnormal findings on cytological and histological examination of urine
CPT/HCPCS: 81003; 88112; 99202

== ENCOUNTER 2023-09-16 16:04 | Outpatient (REF) | payer MEDICARE, SELFPAY ==
--- NOTE | ~2023-09-16 | CT_ITS ---
EXAMINATION: CT ABDOMEN AND PELVIS WITHOUT CONTRAST CLINICAL INFORMATION: 88-year-old male with hematuria COMPARISON: 12/02/2016 TECHNIQUE: Multidetector volumetric imaging was performed from the superior aspect of the liver through the pubic symphysis. Sagittal and coronal reformatted images were obtained on the technologist's workstation. This CT examination was performed using dose optimization techniques as appropriate, variously including the following: *Automated exposure control *Adjustment of mA and/or kV according to patient size (this includes techniques or standardized protocols for targeted exams where dose is matched to indication/reason for exam; i.e. extremities or head) *Use of iterative reconstruction technique DLP: 352 mGy-cm FINDINGS: LUNG BASES: The visualized lung bases are unremarkable. LIVER, GALLBLADDER, AND BILIARY TREE: The liver is normal in size, shape, and attenuation. No focal hepatic lesion or biliary ductal dilatation is present. Gallbladder is not seen most likely surgically absent. PANCREAS: Unremarkable. SPLEEN: Unremarkable. ADRENAL GLANDS: Unremarkable. KIDNEYS AND URETERS: The kidneys are normal in size, shape, and attenuation. No hydronephrosis, hydroureter, or calculi seen. No perinephric stranding. BLADDER: Unremarkable. GASTROINTESTINAL TRACT: The small and large bowel are unremarkable. The appendix is unremarkable. ABDOMINAL WALL: No significant hernia is appreciated. LYMPH NODES: Normal. VASCULAR: Mild atherosclerotic calcifications seen in the abdominal aorta of normal caliber PELVIC VISCERA: Unremarkable. OSSEOUS STRUCTURES: Unremarkable. CT/CT abdomen pelvis wo IV con IMPRESSION: No explanation for hematuria. Status post cholecystectomy. Fleischner guidelines were followed.
== END 2023-09-16 16:05 | disposition home or self-care (01) ==
LOC: HO.CT 16:04
PROVIDERS: PCP Internal Medicine; Visit Provider Urology
DX: R31.9 Hematuria, unspecified (principal)
CPT/HCPCS: 74176

== ENCOUNTER 2023-09-22 09:13 | Outpatient (AMB) | payer MEDICARE, SELFPAY ==
--- NOTE | 2023-09-22 09:49 | MHC.OFFVIS ---
Intake Intake Visit Reasons: 5w/cysto/CT Intake Note: Patient is Present for Cystoscopy Urology Med: None Antibiotic Allergy: None Blood Thinner: None URO- G Disposable Cystoscope lot: [id number] exp: 04/14/2023 Allergies No Known Allergies [No Known Allergies*] Allergy (Verified 09/30/23 08:50) HPI HPI Comments History of Present Illness Details Buck is an 88-year-old male who presents today to the office for a follow-up. 09/22/2023-- He is followed today for cystoscopy and review of CT scan results. Past medical history significant for coronary artery disease and chronic kidney disease. He had a cardiac bypass surgery in 2001. He is followed by nephrology. Patient is on Aspirin 325 mg daily. Patient states that a year ago he saw blood in the urine after lifting something. He also had burning sensation for one to two days at that time, he was not treated with antibiotics but states burning symptoms resolved. He is a former smoker started at the age of 15 or 16 with cigarettes and changed to cigars as he got older. He stopped smoking 35 years ago. Appears younger than stated age. He states that he stays active which includes dancing few times a week. Evaluation today?UA?Leukocytes: negative; blood: 200 Catarino. CAT scan results were not officially read. I have reviewed the films and I will wait for the official readings to discuss with the patient. Cystocpy procedure: consent was obtained for the proecedure. 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 I reviewed the urine cytology report results from 06/29/23 revealed atypical urothelial cells. I reviewed the PSA results from 08/28/22 revealed 2.62 ng/mL. I reviewed serum BUN and creatinine results from 06/28/23 revealed 44 and 1.60. 09/22/2023: Plan: Cystoscopy transurethral resection bladder tumor with random bladder biopsies was discussed to be scheduled. Patient needs to have medical clearance for the procedure and he needs to stop taking Aspirin 10 days prior to the procedure. Discussed risks to include but not limited to, blood in the urine, burning with urination, urgency, deleon insertion. [facility] Medical History History of hematuria Surgical History FH: cholecystectomy Hx of hernia repair History of quadruple bypass Family History Sister Bipolar 1 disorder Mother Cancer Social History Alcohol intake: current Patient Tobacco Use Status: Never used Tobacco Review of Systems Const All systems reviewed & are unremarkable except as noted in HPI and below Reports no additional complaints Eyes Reports no additional complaints ENT Reports no additional complaints Card Denies dyspnea Resp Denies cough and Denies dyspnea GI Reports no additional complaints Musc Reports no additional complaints Skin/Breast Denies rash and Denies unusual bruising Neuro Reports no additional complaints Psych Reports no additional complaints Endo Reports no additional complaints Dell/Lymph Reports no additional complaints Aller/Immun Reports no additional complaints Physical Exam Const General: healthy appearing, no acute distress and well developed Orientation/consciousness: patient oriented x3 HEENT Head: Yes normocephalic and Yes atraumatic Eyes Conjunctivae: conjunctivae normal Neck Neck: Yes normal visual inspection Chest Chest palpation & inspection: normal inspection of the chest Resp Effort & Inspection: normal respiratory effort Cardio Rate: regular rate GI Inspection: Yes normal to inspection Palpation (GI): Soft to palpation Skin General skin exam: no rashes or lesions noted Neuro General: patient oriented x3 Extrem General: No pedal edema Psych Appearance: grossly normal Affect: normal affect Office Procedures Cystoscopy Consent Discussed risk and benefit or proposed procedure with the patient. Information consent for procedure given to the patient. Discussed technical aspects, risks, benefits and alternatives in full. Addressed all of the patient's questions and concerns regarding the procedure. The patient demonstrated knowledge and understanding. They wish to proceed with this procedure. Preparation The patient was prepped in the usual manner. A immunology specialist was present and in the room. Genitalia was prepped with betadine solution in a sterile manner. Lidocaine Jelly 2% was placed into the urethra and 16Fr flexible Olympus cystoscope was inserted into the meatus after adequate lubrication. Procedure Time out per protocol performed. Bladder Inspection Bladder Inspection: The bladder was inspected in its entirety with utilization retroflexion displaying: Tumor(s): papillary tumor right lateral wall approximately 2 cm Trabeculation: moderate Mucosal Erthema: N/A Orifices: normal shape and position Urethra: normal Cystoscopy findings: prostatic urethra trilobar enlargement [id number] DISPOSABLE SCOPE URO-G FLEXIBLE SCOPE Procedure code (CPT) selection complete Office Meds lidocaine HCl 2 % mucosal jelly in applicator Performing Provider: Veena Yun MD Performing Location: [facility] Administered by: Savi Samuel RN on 09/22/23 10:08 Dose Route Admin Location Dispensed Lot Number Expiration Date ND Senior Contract Specialist 10 mL intra-urethral 20 mL naproxen 500 mg tablet Performing Provider: Veena Yun MD Performing Location: [facility] Administered by: Savi Samuel RN on 09/22/23 10:08 Dose Route Admin Location Dispensed Lot Number Expiration Date NDC Senior Contract Specialist 500 mg PO 1 tab ciprofloxacin HCl 500 mg tablet Performing Provider: Veena Yun MD Performing Location: [facility] Administered by: Savi Samuel RN on 09/22/23 10:08 Dose Route Admin Location Dispensed Lot Number Expiration Date ND Senior Contract Specialist 500 mg PO 1 tab Results AMB Urinalysis, Automated UA Leukoctes 0 Zoey/uL Last Edit by Sudhir Shearer LPN on 09/22/23 10:07 UA Nitrite Last Edit by Sudhir Shearer LPN on 09/22/23 10:07 UA Urobilinogen 0 mg/dL Last Edit by Sudhir Shearer LPN on 09/22/23 10:07 UA Protein 15 mg/dL Last Edit by Sudhir Shearer LPN on 09/22/23 10:07 UA pH 5.5 Last Edit by Sudhir Shearer LPN on 09/22/23 10:07 UA Blood 200 Catarino/uL Last Edit by Sudhir Shearer LPN on 09/22/23 10:07 UA Specific [place] 1.020 Last Edit by Sudhir Shearer LPN on 09/22/23 10:07 UA Ketone Last Edit by Sudhir Shearer LPN on 09/22/23 10:07 UA Bilirubin 0 mg/dL Last Edit by Sudhir Shearer LPN on 09/22/23 10:07 UA Glucose 100 mg/dL Last Edit by Sudhir Shearer LPN on 09/22/23 10:07 Results Reviewed Results Reviewed: Laboratory Last Values Urine pH (Auto) 5.5 09/22/23 10:06 Specific [place] (Auto) 1.020 09/22/23 10:06 Urine Protein (Auto) 15 mg/dL 09/22/23 10:06 Glucose (UA)(Auto) 100 mg/dL 09/22/23 10:06 Urine Blood (Auto) 200 Catarino/uL 09/22/23 10:06 Urine Bilirubin (Auto) 0 mg/dL 09/22/23 10:06 Urine Urobilinogen (Auto) 0 mg/dL 09/22/23 10:06 Leukocyte Esterase (Auto) 0 Zoey/uL 09/22/23 10:06 Assessment & Plan Assessment & Plan (1) Hematuria: Code(s): R31.9 - Hematuria, unspecified (2) Urine cytology abnormal: Code(s): R82.89 - Other abnormal findings on cytological and histological examination of urine (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 Patient needs to have medical clearance for the procedure and he needs to stop taking Aspirin 10 days prior to the procedure. Orders: Orders AMB Urinalysis Automated 09/22/23 R82.89 - Other abnormal findings on cytological and histological examination of urine AMB Cystoscopy 09/22/23 R82.89 - Other abnormal findings on cytological and histological examination of urine, R31.9 - Hematuria, unspecified Patient Instructions: The patient had an opportunity to ask questions regarding treatment plan. All questions were answered. Imaging, Laboratory studies and physical exam results were discussed and reviewed in detail. No major barriers to understanding were identified. The patient expressed understanding and agreement with the above treatment plan. The patient is aware they should contact our office by phone for worsening of their current condition or the appearance of new symptoms. Compliance is encouraged with any medications and followup testing that is ordered. It is a privilege to be allowed the opportunity to participate in the urologic care of your patient. If you have any questions or concerns regarding treatment for the above conditions please do not hesitate to contact me. The office telephone contact is [phone]. This note is constructed in part using voice recognition software. While every effort has been made to ensure accuracy sap business objects consultant errors may have been included. Yours sincerely, Veena Yun MD Coding Level of Care Code Est Pt Level 4 (20202) Diagnoses Hematuria R31.9 Urine cytology abnormal R82.89 Bladder neoplasm D49.4 CPT Codes Cystoscopy - CPT: [id number] ([id number])
== END 2023-09-22 11:19 | disposition home or self-care (01) ==
LOC: HO.HUSH 09:13
PROVIDERS: PCP Internal Medicine; Visit Provider Urology
DX: R31.9 Hematuria, unspecified (principal); R82.89 Other abnormal findings on cytological and histological examination of urine; D49.4 Neoplasm of unspecified behavior of bladder
CPT/HCPCS: 52000; 99214

== ENCOUNTER → 2023-09-22 09:13 | Outpatient (BNVA) | payer MEDICARE, SELFPAY | PROVIDERS: PCP Internal Medicine; Visit Provider Urology | DX: R31.9 Hematuria, unspecified (principal); D49.4 Neoplasm of unspecified behavior of bladder; R82.89 Other abnormal findings on cytological and histological examination of urine | CPT/HCPCS: 52000; 81003; 99212 ==

== ENCOUNTER 2023-09-30 08:48 | Outpatient (AMB) | payer MEDICARE, SELFPAY ==
--- NOTE | 2023-09-30 08:49 | A.OFFVIS_ITS ---
Intake Intake Visit Reasons: CT results Intake Note: Patient is Present today via phone for CT Scan Results: Urology Med: None Antibiotic Allergy: None Blood Thinner: None Fire Investigation Lieutenant Required: No Accompanied by: Self / Same As Patient Allergies No Known Allergies [No Known Allergies*] Allergy (Verified 09/30/23 08:50) HPI HPI Comments History of Present Illness Details Buck is an 88-year-old male who presents today via Tele-health visit for a follow-up. 09/30/2023? He is followed today for CT results. He was last seen by me on 09/22/2023 for hematuria. Cystocpy procedure performed. 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 Discussed cysto TURBT--Patient is requesting to postpone the cystoscopy procedure till 11/15/2023. I have reviewed today that CT findings -no acute findings in the urinary tract noted on study. Review of charts: 09/22/2023-- office cystoscopy noted a p apillary bladder tumor in the right later wall which is suspicious appearing. Enlarged prostate. 09/30/2023: Plan: Ordered Finasteride 5 mg daily. PFSH Medical History History of hematuria Surgical History FH: cholecystectomy Hx of hernia repair History of quadruple bypass Family History Sister Bipolar 1 disorder Mother Cancer Social History Alcohol intake: current Patient Tobacco Use Status: Never used Tobacco Review of Systems Const All systems reviewed & are unremarkable except as noted in HPI and below Reports no additional complaints Eyes Reports no additional complaints ENT Reports no additional complaints Card Denies dyspnea Resp Denies cough and Denies dyspnea GI Reports no additional complaints Musc Reports no additional complaints Skin/Breast Denies rash and Denies unusual bruising Neuro Reports no additional complaints Psych Reports no additional complaints Endo Reports no additional complaints Dell/Lymph Reports no additional complaints Aller/Immun Reports no additional complaints Results Reviewed Results Reviewed: Date of Service: 09/16/23 EXAMINATION: CT ABDOMEN AND PELVIS WITHOUT CONTRAST CLINICAL INFORMATION: 88-year-old male with hematuria COMPARISON: 12/02/2016 FINDINGS: LUNG BASES: The visualized lung bases are unremarkable. LIVER, GALLBLADDER, AND BILIARY TREE: The liver is normal in size, shape, and attenuation. No focal hepatic lesion or biliary ductal dilatation is present. Gallbladder is not seen most likely surgically absent. PANCREAS: Unremarkable. SPLEEN: Unremarkable. ADRENAL GLANDS: Unremarkable. KIDNEYS AND URETERS: The kidneys are normal in size, shape, and attenuation. No hydronephrosis, hydroureter, or calculi seen. No perinephric stranding. BLADDER: Unremarkable. GASTROINTESTINAL TRACT: The small and large bowel are unremarkable. The appendix is unremarkable. ABDOMINAL WALL: No significant hernia is appreciated. LYMPH NODES: Normal. VASCULAR: Mild atherosclerotic calcifications seen in the abdominal aorta of normal caliber PELVIC VISCERA: Unremarkable. OSSEOUS STRUCTURES: Unremarkable. IMPRESSION: No explanation for hematuria. Status post cholecystectomy. 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 Medications: New finasteride (Proscar) 5 mg PO DAILY 90 days 90 tabs 3RF C61 - Malignant neoplasm of prostate Patient Instructions: The patient had an opportunity to ask questions regarding treatment plan. All questions were answered. Imaging, Laboratory studies and physical exam results were discussed and reviewed in detail. No major barriers to understanding were identified. The patient expressed understanding and agreement with the above treatment plan. The patient is aware they should contact our office by phone for worsening of their current condition or the appearance of new symptoms. Compliance is encouraged with any medications and followup testing that is ordered. It is a privilege to be allowed the opportunity to participate in the urologic care of your patient. If you have any questions or concerns regarding treatment for the above conditions please do not hesitate to contact me. The office telephone contact is [phone]. This note is constructed in part using voice recognition software. While every effort has been made to ensure accuracy ornamental iron worker errors may have been included. Yours sincerely, Veena Yun MD Coding Level of Care Code Tele Est Pt Level 4 (49758) Diagnoses Hematuria R31.9 Urine cytology abnormal R82.89 Bladder neoplasm D49.4 BPH loc w urin obs/LUTS N40.1
--- OUTSIDE RECORDS SUMMARY | 2023-09-30 08:50 | XMS_ITS | Continuity of Care Document ---
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 And Driver Name Role Phone Myke Silva MD Primary Care Physician Encounter [facility] [place] Date(s): 06/08/23 - 07/08/23 [facility] Adult [address] [place] [address]- Medications cholecalciferol 1000 intl units oral tablet 1 tablet = 1,000 International_Units, By Mouth, Daily, # 30 tablet, 0 Refills, Maintenance, 04/21/16 14:01:53, Tablet Start Date: 04/21/16 Status: Ordered Ecotrin 325 mg oral delayed release tablet 1 tablet = 325 mg, By Mouth, Daily, # 90 tablet, 0 Refills, Maintenance, 04/21/16 14:00:38, EC Tablet Start Date: 04/21/16 Status: Ordered GlipiZIDE XL 2.5 mg oral tablet, extended release 1 tablet = 2.5 mg, By Mouth, Daily, # 30 tablet, 0 Refills, Maintenance, 04/21/16 14:00:21, ER Tablet Start Date: 04/21/16 Status: Ordered Hydrochlorothiazide = 25 mg, By Mouth, Daily, 0 Refills, Maintenance, 04/21/16 14:01:24 Start Date: 04/21/16 Status: Ordered Lipitor 20 mg oral tablet 1 tablet = 20 mg, By Mouth, Daily, # 30 tablet, 0 Refills, Maintenance, Tablet Start Date: 04/21/16 Status: Ordered lisinopril 20 mg oral tablet 20 mg, 1, tablet, By Mouth, Daily, # 30 tablet, Refills 0, Maintenance, 04/21/16 14:00:01 Start Date: 04/21/16 Status: Ordered PredniSONE By Mouth, Daily, 0 Refills, Maintenance, 04/21/16 14:02:22 Start Date: 04/21/16 Status: Ordered Prevacid OTC = 15 mg, By Mouth, Daily, 0 Refills, Maintenance, 04/21/16 14:01:08 Start Date: 04/21/16 Status: Ordered Toprol XL 25 mg oral tablet, extended release 25 mg, 1, tablet, By Mouth, Daily, # 30 tablet, Refills 0, Maintenance, 04/21/16 13:59:44 Start Date: 04/21/16 Status: Ordered Social History Social History Type Response Smoking Status Former smoker entered on: 04/21/16 Sex Patient Care team information Care Team Personnel Name: Myke Silva MD Position: [facility] Outreach Member Role: PCP Address: Address: [address] [place] [address] [place] [address]- Care Team Related Persons Name: WILMER COOPER Address: [place] [address] Name: MARCIO CUNHA Address: home [address] [place] [id number]
== END 2023-09-30 10:49 | disposition home or self-care (01) ==
LOC: HO.HUSH 08:48
PROVIDERS: PCP Internal Medicine; Visit Provider Urology
DX: R31.9 Hematuria, unspecified (principal); R82.89 Other abnormal findings on cytological and histological examination of urine; D49.4 Neoplasm of unspecified behavior of bladder; N40.1 Benign prostatic hyperplasia with lower urinary tract symptoms
CPT/HCPCS: 99442

== ENCOUNTER → 2023-09-30 08:48 | Outpatient (BNVA) | payer MEDICARE, SELFPAY | PROVIDERS: PCP Internal Medicine; Visit Provider Urology ==

== ENCOUNTER 2023-11-04 10:19 | Outpatient (REF) | payer MEDICARE, SELFPAY ==
[2023-11-04 11:26] LABS: Alanine Aminotransferase 23 U/L (0-40); Albumin Level 4.1 g/dL (3.5-5.0); Alkaline Phosphatase 86 U/L (39-117); Anion Gap 12 (12-20); Aspartate Amino Transferase 18 U/L (5-37); Blood Urea Nitrogen 29 mg/dL (9-16); Calcium 9.7 mg/dL (8.4-10.2); Carbon Dioxide 29 mmol/L (22-29); Chloride 105 mmol/L (96-108); Estimated Glomerular Filt Rate 44; Glucose Random 145 mg/dL (60-115); Potassium 3.8 mmol/L (3.3-5.1); Sodium 142 mmol/L (135-145); Total Protein 6.9 g/dL (6.5-8.0)
== END 2023-11-04 10:20 | disposition home or self-care (01) ==
LOC: HO.10HDL 10:19
PROVIDERS: Visit Provider Internal Medicine
DX: I12.9 Hypertensive chronic kidney disease with stage 1 through stage 4 chronic kidney disease, or unspecified chronic kidney disease (principal); E11.22 Type 2 diabetes mellitus with diabetic chronic kidney disease; N18.9 Chronic kidney disease, unspecified; I25.10 Atherosclerotic heart disease of native coronary artery without angina pectoris; Z01.818 Encounter for other preprocedural examination
CPT/HCPCS: 36415; 80053; 83036; 85025

== ENCOUNTER 2023-11-16 05:53 | Day surgery (SDC) | payer MEDICARE, SELFPAY ==
--- NOTE | 2023-11-15 10:09 | HO.ANESPROP2 ---
HPI - Anesthesia Eval Consult details Narrative: 88yo M for TUR Bladder Tumor,with cysto biopsy Medically cleared by pcp CAD s/p CABG x 4 2001 - no further cardiology f/u. Only PCP. Pt denies CP/SOB PMFSH Active Problems Active Problems: All Active Problems (Updated 11/15/23 @ 08:28 by Ciera Alan, RN) BPH loc w urin obs/LUTS (Acute) Bladder neoplasm (Acute) Urine cytology abnormal (Acute) Hematuria (Acute) Past Medical History Medical History (Updated 11/15/23 @ 10:16 by Mary Moreno NP) Diabetes Chronic renal disease Chronic renal insufficiency CAD (coronary artery disease) History of hematuria Family History Family History Sister Bipolar 1 disorder Mother Cancer Surgical History Surgical History (Updated 11/15/23 @ 08:28 by Ciera Alan RN) Hx of CABG FH: cholecystectomy Hx of hernia repair History of quadruple bypass Social History Social History Alcohol intake: current Patient Tobacco Use Status: Never used Tobacco Meds Allergies Allergy/AdvReac Type Severity Reaction Status Date / Time No Known Allergies Allergy Verified 09/30/23 08:50 [No Known Allergies*] Home Medications Medication Instructions Recorded Confirmed Last Taken Type atorvastatin 20 mg tablet (Lipitor) 20 mg PO DAILY 08/18/23 Unknown History ergocalciferol (vitamin D2) 50 mcg 50 mcg PO DAILY 08/18/23 Unknown History (2,000 unit) capsule glipizide 2.5 mg tablet, extended 2.5 mg PO DAILY 08/18/23 Unknown History release 24 hr hydrochlorothiazide 25 mg tablet 25 mg PO DAILY 08/18/23 Unknown History lisinopril 20 mg tablet 20 mg PO DAILY 08/18/23 Unknown History metoprolol succinate 25 mg 25 mg PO DAILY 08/18/23 Unknown History tablet,extended release 24 hr (Toprol XL) Exam Pertinent Lab Results Pertinent Lab Results: Laboratory Tests 11/04/23 11/04/23 10:21 10:25 WBC 7.1 Hgb 15.5 Hct 46.2 Plt Count 198 Sodium 142 Potassium 3.8 Chloride 105 Carbon Dioxide 29 BUN 29 H Creatinine 1.50 H Assessment and Plan Assessment Anesthesia Assessment: Chart Reviewed
[2023-11-16] VITALS (16 sets, daily range): BP systolic 105–185; BP diastolic 60–78; PULSE 50–59; RESP 16–21; TEMP 36.1–36.9; O2SAT 93–100; BMI 24.4
--- NOTE | 2023-11-16 06:15 | ECG_ITS ---
Test Reason : pre op Blood Pressure : / mmHG Vent. Rate : 063 BPM Atrial Rate : 063 BPM P-R Int : 172 ms QRS Dur : 088 ms QT Int : 408 ms P-R-T Axes : 072 -14 031 degrees QTc Int : 417 ms Normal sinus rhythm Normal ECG When compared with ECG of 12-JUL-2009 10:51, No significant change was found Referred By: Mary Moreno Electronically Signed By:MARNI VALENTINO
[2023-11-16 06:42] LABS: Glucose, Whole Blood 119 mg/dL (60-115)
[2023-11-16] MEDS: Lactated Ringers 1,000 ML 100 ML IVCONT ×2 (06:49→16:08)
--- NOTE | 2023-11-16 06:59 | MHC.SHP ---
Pre-Procedural Eval Section A Date of Service: 11/16/23 The patient is an INPATIENT: No The History & Physical has been completed within 30 days and I have reviewed it.: Yes Section B Chief Complaint: Neoplasm of unspecified behavior of bladder Details of Present Illness: 88 year old male here for further evaluation of abnormal findings in bladder, bladder tumor for TURBT Allergies: Allergies Allergy/AdvReac Type Severity Reaction Status Date / Time No Known Allergies Allergy Verified 09/30/23 08:50 [No Known Allergies*] Review of Systems Review of Systems Comment: 10 point ROS negative other than stated in HPI Exam Surgical H&P Exam: Normal: HEENT, Normal: Heart, Normal: Lungs and Normal: Neurological Plan Diagnosis/Plan: Unchanged I have reviewed the history and physical and performed a pertinent physical examination on my patient. No changes have occurred unless specified. Cysto TURBT Time Spent With Patient Time: Total time managing care of this patient today ____ minutes.
--- NOTE | 2023-11-16 07:24 | HO.ANESPROP2 ---
[facility] Active Problems Active Problems: All Active Problems (Updated 11/15/23 @ 10:16 by Mary Moreno NP) BPH loc w urin obs/LUTS (Acute) Bladder neoplasm (Acute) Urine cytology abnormal (Acute) Hematuria (Acute) Past Medical History Medical History (Updated 11/15/23 @ 10:16 by Mary Moreno NP) Diabetes Chronic renal disease Chronic renal insufficiency CAD (coronary artery disease) History of hematuria Family History Family History Sister Bipolar 1 disorder Mother Cancer Family history of problems with anesthesia: No Surgical History Surgical History (Updated 11/15/23 @ 08:28 by Ciera Alan RN) Hx of CABG FH: cholecystectomy Hx of hernia repair History of quadruple bypass History of Problems with Anesthesia: No Social History Social History Alcohol intake: current Patient Tobacco Use Status: Never used Tobacco Use of substances other than those prescribed or required for medical reasons: No Are you DNR?: No Advance Directives: No Advance Directives Information Provided: Yes Advance Directives on File: No Meds Allergies Allergy/AdvReac Type Severity Reaction Status Date / Time No Known Allergies Allergy Verified 09/30/23 08:50 [No Known Allergies*] Active Medications: Current Medications Lactated Ringer's (Lr) 1,000 mls @ 100 mls/hr IVCONT .Q10H TERI Last Admin: 11/16/23 06:49 Dose: 100 mls/hr Cefazolin Sodium/Dextrose (Ancef) 2 gm in 50 mls @ 100 mls/hr IV PREOP ONE Stop: 11/16/23 07:27 Home Medications Medication Instructions Recorded Confirmed Last Taken Type atorvastatin 20 mg tablet (Lipitor) 20 mg PO DAILY 08/18/23 Unknown History ergocalciferol (vitamin D2) 50 mcg 50 mcg PO DAILY 08/18/23 Unknown History (2,000 unit) capsule glipizide 2.5 mg tablet, extended 2.5 mg PO DAILY 08/18/23 Unknown History release 24 hr hydrochlorothiazide 25 mg tablet 25 mg PO DAILY 08/18/23 Unknown History lisinopril 20 mg tablet 20 mg PO DAILY 08/18/23 Unknown History metoprolol succinate 25 mg 25 mg PO DAILY 08/18/23 Unknown History tablet,extended release 24 hr (Toprol XL) Exam Height,Weight and Vital Signs: Height 5 ft 5 in Weight 66.281 kg Last Vital Signs Temp 97.5 F 11/16/23 06:27 Pulse 56 11/16/23 06:27 Resp 16 11/16/23 06:27 BP 179/67 H 11/16/23 06:27 Pulse Ox 97 11/16/23 06:27 O2 Del Method Room Air 11/16/23 06:27 Pertinent Lab Results Pertinent Lab Results: Laboratory Tests 11/16/23 06:31 POC Glucose 119 H Airway Mallampati Class: III TM Dist: >3cm Neck ROM: Full Denture: Upper and Lower Heart: rrr Lungs: clear Assessment and Plan Final Anesthetic Review Family History of Problems with Anesthesia: No History of Problems with Anesthesia: No NPO: Yes ASA Class: IV Final Preanesthetic Review: No Changes in Pt Med Stat, Meds/Allgs Chart Reviewed, Consent Obtained/Reviewed and Anes Risks/Benef Reviewed Patient Risk: Intermediate Procedure Risk: Low Anesthetic Plan Anesthetic Plan: GA Disposition: Standard PACU
--- NOTE | 2023-11-16 09:03 | P.OP_ITS ---
Operative Note Operative Note Date of Service: 11/16/23 Narrative: PREOP DIAGNOSIS: Bladder tumor POSTOP DIAGNOSIS: Bladder tumor PROCEDURE: CYSTOSCOPY TRANSURETHRAL RESECTION OF BLADDER TUMOR, FULGURATION, RANDOM BLADDER BIOPSIES Anesthesia: General Surgeon Dr. 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 2 g of Ancef IV. General anesthesia was administered. The patient was repositioned into lithotomy position, prepped and draped in the usual sterile fashion. Time-out was done per protocol. 2 urojet placed. The 22 fr cystoscope was passed transurethrally, the bulbous urethra was within normal limits. The prostatic urethra noted trilobar enlargement. Visualization of the bladder noted an intrinsic papillary bladder tumor on the right lateral wall towards the dome. No active bleeding noted. Using the flexible biopsy forceps random bladder biopsies were taken from the posterior wall and left lateral wall. The 24 [place] resectoscope was passed transurethrally into the bladder under direct visualizaion. Hemostasis was accomplished at the biopsied sites. The loop working element was used to resect the bladder tumor, the ellik was used to irrigate the tumor fragments. During resection muscle was visualized; during fulguration of the tumor base, near the dome the current was near the air bubble, and there was minimal evidence of perforation, noted. There was adequate hemostasis noted. The resectoscope was removed. A [address] catheter 5 cc balloon was passed without difficulty. The patient was brought out of anesthesia and taken to recovery in stable condition. EBL: minimal <10 mL Complications: None Drains: [address] catheter 5 cc balloon
[2023-11-16] MEDS: Phenazopyridine HCL 200 MG TABLET PO (11:17)
[2023-11-16] MEDS: ceFAZolin Sodium/Dextrose,Iso 2 GM/50 ML PIGGYBACK IV (13:15)
--- NOTE | 2023-11-16 15:13 | PHA.MEDREC ---
Pharmacy Consult ? Medication Reconciliation Pharmacy has completed the medication reconciliation. [facility] rec completed by Jerry. Spoke with patient and pharmacy to confirm medications. Patient get medications from [facility] which do not appear in claim history such as allopurinol. Jodi Jaramillo, YuliyaD
[2023-11-16] MEDS: 0.9 % Sodium Chloride Flush 3 ML SYRINGE IVFLUSH (20:56)
[2023-11-17] MEDS: Lactated Ringers 1,000 ML 100 ML IVCONT (01:50)
[2023-11-17 03:31] VITALS: BP 122/57; PULSE 54; RESP 18; TEMP 36.7; O2SAT 94
[2023-11-17 06:22] LABS: Glucose, Whole Blood 141 mg/dL (60-115)
[2023-11-17 07:46] VITALS: BP 147/65; PULSE 51; RESP 17; TEMP 36.2; O2SAT 94
--- NOTE | 2023-11-17 09:03 | HO.POSTANES ---
Post Anesthesia Evaluation Post Anesthesia Evaluation Date of Service: 11/17/23 Vital Signs: Vital Signs Temp Pulse Resp BP Pulse Ox O2 Del Method 11/17/23 07:46 97.2 F 51 17 147/65 H 94 Room Air 11/17/23 03:31 98.0 F 54 18 122/57 L 94 Room Air Anesthesia: General Mental Status: Awake Pain Control: Satisfactory Nausea/Vomiting: None Hydration: Adequate Anesthesia-Related Issues: No Anes. Related Issues
--- NOTE | 2023-11-17 11:16 | MHC.CM.PN ---
Addendum entered by Brielle Osborn RN 11/17/23 13:41: Patient medically cleared for dc. Patient and MD discussed VNA, but do not feel it is necessary. Patient will dc home, self care, with partner today. Partner Mary is at bedside to transport. Original Note: IMM delivered. Patient is from home alone. Functionally independent. No services or equipment. PCP: Myke Silva MD HCP: CM assisted in completing. Patient names agents: 1) daughter Mary Lou [phone], 2) daughter [phone] DP: Per patient, he will dc home with deleon x 2 weeks. He would like a VNA to assist in deleon care. Prefers [facility]. Referral placed. Family to transport. CM will continue to follow.
== END 2023-11-17 15:05 | disposition home or self-care (01) ==
LOC: HO.SSS 09:14 → HO.S3 12:36
PROVIDERS: PCP Internal Medicine; Visit Provider Urology
PROC: 0TBB8ZZ Excision of Bladder, Via Natural or Artificial Opening Endoscopic (ICD-10-PCS; CPT 52235; principal; 2023-11-16 07:30)
DX: C67.2 Malignant neoplasm of lateral wall of bladder (principal); N40.1 Benign prostatic hyperplasia with lower urinary tract symptoms; R31.9 Hematuria, unspecified; R82.89 Other abnormal findings on cytological and histological examination of urine; E11.22 Type 2 diabetes mellitus with diabetic chronic kidney disease; N18.9 Chronic kidney disease, unspecified; I25.10 Atherosclerotic heart disease of native coronary artery without angina pectoris; Z95.1 Presence of aortocoronary bypass graft; Z79.84 Long term (current) use of oral hypoglycemic drugs; Z79.899 Other long term (current) drug therapy
CPT/HCPCS: 52235; 82947; 88305; 88307; 93005; J0461; J0690; J1100; J2250; J2405; J2704; J3010; J7120

== ENCOUNTER → 2023-11-16 05:53 | Outpatient (BNV) | payer MEDICARE, SELFPAY | PROVIDERS: PCP Internal Medicine; Visit Provider Urology | DX: C67.2 Malignant neoplasm of lateral wall of bladder (principal) | CPT/HCPCS: 52235 ==

== ENCOUNTER → 2023-11-16 06:15 | Outpatient (BNV) | payer MEDICARE, SELFPAY | PROVIDERS: PCP Internal Medicine; Visit Provider Internal Medicine | DX: D49.4 Neoplasm of unspecified behavior of bladder (principal) | CPT/HCPCS: 93010 ==

== ENCOUNTER 2023-11-28 12:41 | Inpatient (IN) | payer MEDICARE, SELFPAY ==
--- NOTE | ~2023-11-28 | US_ITS ---
EXAMINATION: US RETROPERITONEAL LIMITED (RENAL ONLY) CLINICAL INFORMATION: Acute on chronic renal failure. COMPARISON: CT abdomen and pelvis without contrast 09/16/2023. TECHNIQUE: Real-time imaging of the kidneys. Limited visualization due to bowel gas. FINDINGS: RIGHT KIDNEY: 10.1 x 4.9 x 4.8 cm (SAG x AP x TRV). Diffuse renal cortical thinning. No renal calculi or hydronephrosis. Mildly prominent renal pyramids. Limited visualization. LEFT KIDNEY: 10.5 x 4.7 x 4.3 cm (SAG x AP x TRV). Diffuse renal cortical thinning. No renal calculi or hydronephrosis. Mildly prominent renal pyramids. Limited visualization. US/US renal BI IMPRESSION: 1. Bilateral diffuse renal cortical thinning. 2. Mildly prominent bilateral renal pyramids.
--- NOTE | ~2023-11-28 | XR_ITS ---
EXAMINATION: XR TIBIA AND FIBULA, LEFT CLINICAL INFORMATION: Cramping pain. Question fracture. COMPARISON: None available. TECHNIQUE: AP and lateral views of the left tibia and fibula were obtained. XR/XR tibia fibula LT 2V FINDINGS/IMPRESSION: There is no acute radiographic finding. No acute fracture or dislocation is appreciated. Bony mineralization appears preserved. Well-corticated ossific density just distal to the medial malleolus, possibly representing an old avulsion fracture. Diffuse small vessel arterial calcification suggesting diabetic and/or renal calcific atherosclerosis.
--- NOTE | ~2023-11-28 | US_ITS ---
EXAMINATION: US VENOUS ULTRASOUND WITH DOPPLER LOWER EXTREMITY, LEFT CLINICAL INFORMATION: Leg cramps.. Question DVT. COMPARISON: None available. TECHNIQUE: Ultrasound of the deep veins is performed from the hip to the calf with compression sonography and color and pulse Doppler assessment. Spectral analysis with color-flow imaging is performed. FINDINGS: There is normal venous compression and respiratory variation and augmented flow. Limited evaluation of the mid portion of the superficial femoral vein due to the Latif catheter taped to the leg. The visualized common femoral vein, visualized portion of the superficial femoral vein, profunda femoral vein, popliteal vein, and the trifurcation region shows no evidence of deep venous thrombosis. No evidence of thrombosis in the visualized calf veins. If the patient's symptoms persist, followup ultrasound in 5 days 7 days might be of value to exclude proximal propagation from a non-visualized calf vein. US/US venous duplex LE IMPRESSION: No DVT demonstrated in the left lower extremity. Limited visualization of the midportion of the femoral vein. If the patient's symptoms persist, followup ultrasound in 5 days 7 days might be of value to exclude proximal propagation from a non-visualized vein.
[2023-11-28 12:49] VITALS: BP 133/49; PULSE 79; RESP 20; TEMP 37.2; O2SAT 94; BMI 23.6
--- NOTE | 2023-11-28 12:54 | ED_ITS ---
HPI - General Adult General Chief complaint: Extremity Injury, Lower Stated complaint: L leg cramp/surgery recently Time Seen by Provider: 11/28/23 14:38 Source: patient Mode of arrival: ambulatory Limitations: no limitations History of Present Illness HPI narrative: Patient is an 88-year-old male who presents emergency department for evaluation of a cramping pain to the left calf. Onset was this afternoon. He expresses personal concern for DVT reporting that he recently had a surgery. He is s/p bladder surgery with biopsy 2 weeks ago, he also states that he is unsure whether there has been blood in the urine or if the urine is discolored due to the Pyridium. He denies any suprapubic pain, low back pain, flank pain, nausea, vomiting, fevers, chills, foul smelling urine. Related Data Home Medications Medication Instructions Recorded Confirmed atorvastatin 20 mg tablet (Lipitor) 20 mg PO DAILY 08/18/23 11/16/23 hydrochlorothiazide 25 mg tablet 25 mg PO DAILY 08/18/23 11/16/23 lisinopril 20 mg tablet 20 mg PO DAILY 08/18/23 11/16/23 metoprolol succinate 25 mg 25 mg PO DAILY 08/18/23 11/16/23 tablet,extended release 24 hr (Toprol XL) allopurinol 100 mg tablet 200 mg PO DAILY 11/16/23 11/16/23 Previous Rx's Medication Instructions Recorded finasteride 5 mg tablet (Proscar) 5 mg PO DAILY 90 days #90 tabs 09/30/23 alfuzosin 10 mg tablet,extended 10 mg PO DAILY #30 tabs 11/16/23 release 24 hr phenazopyridine 200 mg tablet 200 mg PO TID PRN urinary burning 11/16/23 (Pyridium) #30 tabs solifenacin 5 mg tablet (Vesicare) 5 mg PO BEDTIME #10 tabs 11/16/23 cephalexin 500 mg capsule 500 mg PO BID #13 caps 11/28/23 Allergies Allergy/AdvReac Type Severity Reaction Status Date / Time No Known Allergies Allergy Verified 11/28/23 12:54 [No Known Allergies*] Review of Systems 2 Review of Systems: Yes all other systems are reviewed and are negative PMFSH Past Medical History Attestation statement: The following information was validated with the patient. Source: old records reviewed Medical History Diabetes Chronic renal disease Chronic renal insufficiency CAD (coronary artery disease) History of hematuria Surgical History Hx of CABG FH: cholecystectomy Hx of hernia repair History of quadruple bypass Family History Family History Sister Bipolar 1 disorder Mother Cancer Social History Social History Household Members: None Housing: Apartment Do you presently have visiting nurse or other home services: No Alcohol intake: current Patient Tobacco Use Status: Former Tobacco user Tobacco use type: Cigar Second Hand Smoke Exposure: No Advance Directives: Yes Advance Directives on File: Yes Advance Directives Date on File: 11/18/23 service: No Physical Exam ED Vital Signs: Vital Signs - 24 hr 11/28/23 12:49 11/28/23 16:00 Temperature 98.9 F 98.0 F Pulse Rate 79 83 Respiratory Rate 20 16 Blood Pressure 133/49 L 150/59 H Pulse Oximetry 94 98 Oxygen Delivery Method Room Air Room Air BMI result Body Mass Index 23.6 Appearance: Alert.?Oriented to person, place and time. No acute distress.?Normal affect. Eyes: Pupils equal, round and reactive to light.? ENT: Pharynx normal.?? Neck: Normal inspection.? Neck supple.?? CVS: Heart sounds normal. Normal heart rate and rhythm.? Pulses normal.?? Respiratory: No respiratory distress.? Lung sounds clear to auscultation bilaterally?? Abdomen: Soft and non-tender. Normoactive bowel sounds. No pulsatile mass.??No CVA tenderness Genitourinary: Latif catheter intact, insertion site free from sign of infection/trauma. Catheter drainage bag with orange-colored urine, small clots noted to be present, no overt hematuria Skin: Skin warm and dry.? Normal skin color.? Normal skin turgor.?? Extremities: No lower extremity edema.? Left calf tenderness upon palpation Neuro: Moves all extremities spontaneously. Sensation intact bilaterally. CN II- XII intact. No focal neuro deficits. Ambulates with normal steady gait. Course Course Course Narrative: RME: 88 yold male presents to the ED for left leg calf cramping pain for the past two days. Patient is status post bladder surgery biopsy 2 weeks ago. Patient denies any recent trauma of left lower extremity. Left lower extremity negative for any swelling but positive for mild calf tenderness on palpation. Vascular motor/neuro exam of left lower extremity intact. Right lower extremity normal. Will do labs and ULtrasound of leg. Patient has a Latif with blood in the Latif patient is status post bladder surgery biopsy which can cause hematuria. Patient denies any suprapubic pain. UA ordered. Reevaluation(s) Reevaluation #1: urinalysis with microscopic hematuria, , 3+ leukocyte esterase and urine WBCs, positive nitrites but no urine bacteria, concerning for possible urinary tract infection versus nitrite positive due to Pyridium, in the setting of recent procedure, will treat with antibiotics; Keflex 500 mg twice daily as per urology recommendation. patient signed out to [facility]on[facility] GILLETTE pending repeat BMP for resolution/near resolution of MIGUEL A on CKD. Time: 18:44 Reevaluation #2: Patient is still in acute on chronic MIGUEL A. Case discussed with Dr. Padgett of Urology who states patient should be admitted to hospitalist service and she will follow as a consulting service. She also recommend patient being started on Ancef IV q.12. Dr. Mcfarland hospitalist was informed of case and will accept patient. Time: 20:16 Medications Administered Discontinued Medications Generic Name Dose Route Start Last Admin Trade Name Freq PRN Reason Stop Dose Admin Cephalexin HCl 500 mg 11/28/23 18:19 11/28/23 18:38 Cephalexin 500 Mg Capsule PO 11/28/23 18:20 500 mg ONCE ONE Administration Sodium Chloride 1,000 mls @ 999 mls/hr 11/28/23 16:45 11/28/23 18:52 Ns IV 11/28/23 18:15 Not Given .Q1H1M [facility] Medical Decision Making Medical Decision Making [facility] Narrative: Patient is an 88-year-old male who presents emergency department for evaluation of cramping pain to the left calf of sudden onset this afternoon atraumatic in nature. Reviewed imaging studies obtained from [facility] provider, ultrasound is without evidence of DVT. XR is without acute fracture/dislocation, there is mention of a well corticated ossific density just distal to the medial malleolus possibly representing an old avulsion fracture, no tenderness or pain in this area, not acute. Reviewed serum labs, CBC is without leukocytosis, anemia. CK is normal, not consistent with rhabdo. Magnesium normal. Noted to have MIGUEL A with BUN/creatinine 56/2.41 today when compared to prior labs 11/04/2023 at 24/1.5 respectively, does have CKD but labs today are increased from his baseline. Patient to receive 1.5 L IV fluids. On 11/16/2022 he underwent cystoscopy transurethral resection of bladder tumor with biopsy with Dr. Hollis padgett, I did consult with Urology, Dr. Yun who agrees with plan of care, after IV fluid should renal function improve, can follow-up outpatient and will discontinue Pyridium. Differential Diagnosis Differential Diagnoses: The differential diagnosis associated with the presentation includes (See narrative above) Admission/Observation Consideration of admission/observation: Escalation of care including admission/observation considered Consult Healthcare Provider Management of the patient was discussed with: Special Services Supervisor (See narrative above) Lab Data MDM Lab Attestation statement: I reviewed the patient's lab results. (See narrative above) 11/28/23 13:02 11/28/23 19:02 Labs: Lab Results 11/28/23 11/28/23 11/28/23 Range/Units 13:02 17:33 19:02 WBC 10.1 (4.8-10.8) X10*3/uL RBC 4.76 (4.60-5.80) X10*6/uL Hgb 14.1 (14.0-18.0) g/dl Hct 41.7 L (42.0-52.0) % MCV 87.6 (80.0-98.0) fL MCH 29.6 (27.0-33.0) pg MCHC 33.8 (31.0-36.0) g/dl RDW 12.8 (11.0-16.0) % Plt Count 231 (160-400) X10*3/uL MPV 9.6 (9.4-12.4) fL Immature Gran % (Auto) 0.5 H (0.0-0.4) % Neut % (Auto) 82.2 H (45-73) % Lymph % (Auto) 7.7 L (20-40) % [place] % (Auto) 7.3 (2-11) % Eos % (Auto) 1.8 (0-4) % Baso % (Auto) 0.5 (0-2) % Lymph # (Auto) 0.8 L (1.2-4.9) X10*3/uL [place] # (Auto) 0.7 (0.1-1.2) X10*3/uL Eos # (Auto) 0.2 (0.0-0.4) X10*3/uL Baso # (Auto) 0.1 (0.0-0.2) X10*3/uL Abs Immat Gran (auto) 0.05 H (0.00-0.03) X10*3/uL Absolute Neuts (auto) 8.3 (2.0-8.3) x10*3/uL Absolute Nucleated RBC 0.000 (0.0-0.012) X10*3/uL Nucleated RBC % (auto) 0.0 (0.0-0.2) /100WBC PT 13.1 (11.1-13.3) SEC INR 1.1 (0.9-1.1) APTT 28.2 (26.0-36.4) SEC Sodium 138 142 (135-145) mmol/L Potassium 4.8 4.6 (3.3-5.1) mmol/L Chloride 103 108 (96-108) mmol/L Carbon Dioxide 25 22 (22-29) mmol/L Anion Gap 15 17 (12-20) BUN 56 H 53 H (9-16) mg/dL Creatinine 2.41 H 2.16 H (0.5-1.4) mg/dL Estim Creat Clear Calc 18.7 20.9 Estimated GFR 26 29 Random Glucose 121 H 108 (60-115) mg/dL Calcium 9.6 8.4 D (8.4-10.2) mg/dL Magnesium 2.3 (1.6-2.6) mg/dL Total Bilirubin 1.0 (0.0-1.0) mg/dL AST 13 (5-37) U/L ALT 19 (0-40) U/L Alkaline Phosphatase 88 (39-117) U/L Total Creatine Kinase 54 (38-174) U/L Total Protein 7.1 (6.5-8.0) g/dL Albumin 4.0 (3.5-5.0) g/dL Urine Color [place] A Urine Appearance Clear Urine pH 6.5 (5.0-9.0) Ur Specific [place] 1.015 (1.005-1.025) Urine Protein 30 (1+) H (Neg-Trace) mg/dL Urine Glucose (UA) Negative (Negative) mg/dL Urine Ketones Negative (Negative) mg/dL Urine Blood Moderate (2+) H (Negative) Urine Nitrite Positive H (Negative) Ur Leukocyte Esterase Large (3+) H (Negative) Urine RBC 11-20 H (0-2) /HPF Urine WBC 11-20 (0-5) /HPF Ur Squamous Epith Cells 3-5 (0-2) /HPF Urine Bacteria None Seen (None Seen) Hyaline Casts 0-2 (0-2) /LPF Independent Interpretation I performed an independent interpretation of an: Plain X-Ray (I personally interpreted XR imaging and agree with radiologist impression) and Ultrasound Radiology Impression Discussion of test interpretation with radiology: I have reviewed the radiologist's reading. Radiologist Impression: US/US venous duplex LE LT IMPRESSION: No DVT demonstrated in the left lower extremity. Limited visualization of the midportion of the femoral vein. If the patient's symptoms persist, followup ultrasound in 5 days 7 days might be of value to exclude proximal propagation from a non-visualized vein. XR/XR tibia fibula LT 2V FINDINGS/IMPRESSION: There is no acute radiographic finding. No acute fracture or dislocation is appreciated. Bony mineralization appears preserved. Well-corticated ossific density just distal to the medial malleolus, possibly representing an old avulsion fracture. Diffuse small vessel arterial calcification suggesting diabetic and/or renal calcific atherosclerosis. Independent Historian Clinical information obtained from an independent historian. History obtained from or confirmed by: Other (Daughter who confirms history) External Record Review External record reviewed: Prior outpatient labs Discharge Plan Discharge Clinical Impression: Acute kidney injury superimposed on chronic kidney disease Patient Disposition: Admitted As Inpatient Additional Instructions: As discussed, your urine sample today was concerning for possible infection versus findings due to the Pyridium, I have consulted with Urology, I have sent a prescription for Keflex to your pharmacy to take twice daily, while we await your urine culture results. STOP TAKING PYRIDIUM. Contact urology office to arrange for a follow-up visit. Return back to emergency department any new or worsening symptoms or concerns.
[2023-11-28 13:09] LABS: MANUAL DIFF FLAG NO
[2023-11-28 13:15] LABS: Basophils Absolute Auto 0.1 X10*3/uL (0.0-0.2); Basophils Percent Auto 0.5 % (0-2); Eosinophils Absolute Auto 0.2 X10*3/uL (0.0-0.4); Eosinophils Percent Auto 1.8 % (0-4); Hematocrit 41.7 % (42.0-52.0); Hemoglobin 14.1 g/dl (14.0-18.0); Imm Gran Abs Auto 0.05 X10*3/uL (0.00-0.03); Imm Gran Pct Auto 0.5 % (0.0-0.4); Lymphocytes Absolute Auto 0.8 X10*3/uL (1.2-4.9); Lymphocytes Percent Auto 7.7 % (20-40); Mean Corpuscular HGB Conc 33.8 g/dl (31.0-36.0); Mean Corpuscular Hemoglobin 29.6 pg (27.0-33.0); Mean Corpuscular Volume 87.6 fL (80.0-98.0); Mean Platelet Volume 9.6 fL (9.4-12.4); Monocytes Absolute Auto 0.7 X10*3/uL (0.1-1.2); Monocytes Percent Auto 7.3 % (2-11); Neutrophils Absolute Auto 8.3 x10*3/uL (2.0-8.3); Neutrophils Percent Auto 82.2 % (45-73); Platelet Count 231 X10*3/uL (160-400); Red Blood Count 4.76 X10*6/uL (4.60-5.80); Red Cell Distribution Width 12.8 % (11.0-16.0); White Blood Count 10.1 X10*3/uL (4.8-10.8)
[2023-11-28 13:17] LABS: INTERNATIONAL NORM RATIO 1.1 (0.9-1.1); Prothrombin Time 13.1 SEC (11.1-13.3)
[2023-11-28 13:20] LABS: Partial Thromboplastin Time 28.2 SEC (26.0-36.4)
[2023-11-28 13:56] LABS: Alanine Aminotransferase 19 U/L (0-40); Alkaline Phosphatase 88 U/L (39-117); Anion Gap 15 (12-20); Aspartate Amino Transferase 13 U/L (5-37); Blood Urea Nitrogen 56 mg/dL (9-16); Calcium 9.6 mg/dL (8.4-10.2); Carbon Dioxide 25 mmol/L (22-29); Chloride 103 mmol/L (96-108); Creatinine Clr Calc Pharmacy 18.7; Estimated Glomerular Filt Rate 26; Glucose Random 121 mg/dL (60-115); Magnesium 2.3 mg/dL (1.6-2.6); Potassium 4.8 mmol/L (3.3-5.1); Sodium 138 mmol/L (135-145); Total Protein 7.1 g/dL (6.5-8.0)
[2023-11-28 16:00] VITALS: BP 150/59; PULSE 83; RESP 16; TEMP 36.7; O2SAT 98
--- NOTE | 2023-11-28 16:32 | MHC.EDTECH ---
Brought patient a cup of vincent marie.
[2023-11-28] MEDS: 0.9 % Sodium Chloride 1,000 ML 999 ML IV (16:46)
[2023-11-28 17:40] LABS: Appearance Urine Clear; Glucose Urine UA Negative (Negative); Leukocyte Esterase Urine Large (3+) (Negative); Nitrite Urine Positive (Negative); PH 6.5 (5.0-9.0); Specific Gravity - Urine 1.015 (1.005-1.025); UMIC TRIGGER UACC YES; Urine Blood Moderate (2+) (Negative); Urine Ketones Negative (Negative); Urine Protein 30 (1+) mg/dL (Neg-Trace)
[2023-11-28 17:41] LABS: Color Urine Orange
[2023-11-28 17:57] LABS: Bacteria Urine None Seen (None Seen); Hyaline Casts Urine 0-2 /LPF (0-2); UACC Culture Trigger YES
[2023-11-28] MEDS: cephALEXin 500 MG CAPSULE PO (18:38)
--- NOTE | 2023-11-28 18:52 | PC.NURSE ---
1500mls of NS infused per order
[2023-11-28 19:23] LABS: Anion Gap 17 (12-20); Blood Urea Nitrogen 53 mg/dL (9-16); Calcium 8.4 mg/dL (8.4-10.2); Carbon Dioxide 22 mmol/L (22-29); Chloride 108 mmol/L (96-108); Creatinine Clr Calc Pharmacy 20.9; Estimated Glomerular Filt Rate 29; Glucose Random 108 mg/dL (60-115); Potassium 4.6 mmol/L (3.3-5.1); Sodium 142 mmol/L (135-145)
--- NOTE | 2023-11-28 20:33 | PC.NURSE ---
LETA ruiz at bedside explained d/t pt MIGUEL A he will need admission to hospital for furhter management. pt dtrs at bedside verbalize understanding and agree with plan. pt will be started on Ancef per urology recommendation. pt to be transferred to ED3, report given to Sera Trevino RN
[2023-11-28] MEDS: 0.9 % Sodium Chloride 1,000 ML 100 ML IVCONT (21:25)
--- NOTE | 2023-11-28 21:25 | P.HPHOSP_ITS ---
History of Present Illness Date of Service: 11/28/23 Attending physician on admission: Debby Lira Chief Complaint: Left leg crampy pain Buck Gary is a very pleasant 88 years old man with past medical history significant for CKD stage 3, hypertension on HCTZ + lisinopril and hyperlipidemia who presents to the emergency department complaining of multiple events of left leg crampy pain. There is no associated swelling or redness. No recent trauma to the left leg. He recently underwent a cystoscopy with transurethral resection of bladder tumor (fulguration, random bladder biopsies; November 16) by Dr. Mahajan. A indwelling urinary catheter was placed after this procedure. He does complain of occasional urinary pain for which he has been taking Pyridium. He denied any chest pain, shortness on breath, abdominal pain, nausea or vomiting. He also denied diarrhea what mentioned that in occasions he have soft stools. There is no fever or chills reported. He is a former tobacco smoking and quit more than 30 years ago. He does not have history of alcohol abuse or illicit drug use. Patient feels that he has been drinking enough water daily. Buck told me he loves to dance! In the ED, his vital signs are stable. Last blood pressure is 150/59. Blood workup showed no leukocytosis. His initial creatinine was 2.41 and slightly dropped to 2.6 after a bolus of normal saline. (his creatine was 1.5 on 11-04-2023). There is no hyperkalemia or metabolic acidosis. Urine showed finding consistent with urinary tract infection. ED tx: Keflex 500 mg p.o., 1 g. NS bolus 1 L. Review of Systems 2 Review of Systems: All 12 systems were reviewed and normal except as noted in HPI. [facility] Medical History (Updated 11/28/23 @ 22:23 by Debby Lira MD) CKD (chronic kidney disease) stage 3, GFR 30-59 ml/min Hyperlipidemia Gout Essential hypertension Diabetes Chronic renal disease Chronic renal insufficiency CAD (coronary artery disease) History of hematuria Family History Sister Bipolar 1 disorder Mother Cancer Surgical History Hx of CABG FH: cholecystectomy Hx of hernia repair History of quadruple bypass Social History Household Members: None Housing: Apartment Do you presently have visiting nurse or other home services: No Alcohol intake: current Patient Tobacco Use Status: Former Tobacco user Tobacco use type: Cigar Second Hand Smoke Exposure: No Advance Directives Date on File: 11/18/23 service: No Meds Allergies Allergy/AdvReac Type Severity Reaction Status Date / Time No Known Allergies Allergy Verified 11/28/23 12:54 [No Known Allergies*] Active Medications: Current Medications Allopurinol (Allopurinol 100 Mg Tablet) 50 mg PO DAILY [facility] Heparin Sodium (Porcine) (Heparin Sodium,Porcine 5,000 Unit/Ml Vial) 5,000 unit SUBCUT Q12H [facility] Ceftriaxone Sodium 1 gm/ (Sodium Chloride) 50 mls @ 100 mls/hr IV Q24H [facility] Sodium Chloride (Ns) 1,000 mls @ 100 mls/hr IVCONT .Q10H [facility] Phenazopyridine HCl (Phenazopyridine Hcl 100 Mg Tablet) 100 mg PO BIDWM PRN PRN Reason: Pain, Mild (Pain Scale 1-3) Stop: 11/30/23 21:17 Sodium Chloride (0.9 % Sodium Chloride Flush 3 Ml Syringe) 3 ml IVFLUSH QSHIFT [facility] Additional home meds Pyridium 200 mg p.o. t.i.d. p.r.n. VESIcare 5 mg p.o. at bedtime Home Medications Medication Instructions Recorded Confirmed Last Taken Type atorvastatin 20 mg tablet (Lipitor) 20 mg PO DAILY 08/18/23 11/28/23 Unknown History hydrochlorothiazide 25 mg tablet 25 mg PO DAILY 08/18/23 11/28/23 Unknown History lisinopril 20 mg tablet 20 mg PO DAILY 08/18/23 11/28/23 Unknown History metoprolol succinate 25 mg 25 mg PO DAILY 08/18/23 11/28/23 11/16/22 History tablet,extended release 24 hr (Toprol XL) allopurinol 100 mg tablet 200 mg PO DAILY 11/16/23 11/28/23 11/15/23 History Physical Exam 2 Vital Signs and Narrative: Vital Signs: Last Vital Signs Temp 98.0 F 11/28/23 16:00 Pulse 83 11/28/23 16:00 Resp 16 11/28/23 16:00 BP 150/59 H 11/28/23 16:00 Pulse Ox 98 11/28/23 16:00 O2 Del Method Room Air 11/28/23 16:00 BMI result Body Mass Index 23.6 Constitutional - Awake and Alert, No apparent distress Eyes - normal sclerae. Cardiovascular - S1S2, RRR, No edema Respiratory - Normal lung expansion, Normal respiratory effort, No respiratory distress, CTA bilaterally Gastrointestinal - NT / ND; +BS; No rebound or guarding GI - indwelling urinary catheter in place. [place] urine in the urinary bag noted. Extremities - no calf tenderness bilaterally, no swelling Musculoskeletal - Normal inspection, normal ROM, non tenderness. Skin - Warm/Dry Neurological - Alert & oriented x3. Psychological - Appropriate affect Results Labs 11/28/23 13:02 11/28/23 19:02 Labs: Laboratory Results - last 24 hr 11/28/23 11/28/23 11/28/23 13:02 17:33 19:02 MCV 87.6 MCH 29.6 MCHC 33.8 RDW 12.8 Plt Count 231 MPV 9.6 Immature Gran % (Auto) 0.5 H Neut % (Auto) 82.2 H Lymph % (Auto) 7.7 L [place] % (Auto) 7.3 Eos % (Auto) 1.8 Baso % (Auto) 0.5 Lymph # (Auto) 0.8 L [place] # (Auto) 0.7 Eos # (Auto) 0.2 Baso # (Auto) 0.1 Abs Immat Gran (auto) 0.05 H Absolute Neuts (auto) 8.3 Absolute Nucleated RBC 0.000 Nucleated RBC % (auto) 0.0 PT 13.1 INR 1.1 APTT 28.2 Anion Gap 15 17 Estim Creat Clear Calc 18.7 20.9 Estimated GFR 26 29 Random Glucose 121 H 108 Calcium 9.6 8.4 D Magnesium 2.3 Total Bilirubin 1.0 AST 13 ALT 19 Alkaline Phosphatase 88 Total Creatine Kinase 54 Total Protein 7.1 Albumin 4.0 Urine Color [place] A Urine Appearance Clear Urine pH 6.5 Ur Specific [place] 1.015 Urine Protein 30 (1+) H Urine Glucose (UA) Negative Urine Ketones Negative Urine Blood Moderate (2+) H Urine Nitrite Positive H Ur Leukocyte Esterase Large (3+) H Urine RBC 11-20 H Urine WBC 11-20 Ur Squamous Epith Cells 3-5 Urine Bacteria None Seen Hyaline Casts 0-2 Imaging Radiologist's Impressions: Impressions Venous Duplex 11/28/23 13:37 IMPRESSION: No DVT demonstrated in the left lower extremity. Limited visualization of the midportion of the femoral vein. If the patient's symptoms persist, followup ultrasound in 5 days 7 days might be of value to exclude proximal propagation from a non-visualized vein. Tibia/Fibula X-Ray 11/28/23 13:54 FINDINGS/IMPRESSION: There is no acute radiographic finding. No acute fracture or dislocation is appreciated. Bony mineralization appears preserved. Well-corticated ossific density just distal to the medial malleolus, possibly representing an old avulsion fracture. Diffuse small vessel arterial calcification suggesting diabetic and/or renal calcific atherosclerosis. Assessment and Plan (1) Acute kidney injury superimposed on chronic kidney disease: Status: Acute (2) Cramps of left lower extremity: Status: Acute (3) UTI (urinary tract infection): Qualifiers: Urinary tract infection type: acute cystitis Hematuria presence: w ithout hematuria Qualified Code(s): N30.00 - Acute cystitis without hematuria Status: Acute (4) Essential hypertension: Status: Acute (5) Gout: Qualifiers: Gout site: unspecified site Gout etiology: unspecified cause C hronicity: chronic Status: Acute (6) Hyperlipidemia: Status: Acute (7) CKD (chronic kidney disease) stage 3, GFR 30-59 ml/min: Status: Acute Plan Buck Gary is a very pleasant 88 years old man admitted with: * Acute on chronic renal failure possible related to the use of lisinopril and hydrochlorothiazide. Admit to hospitalist service. Hold lisinopril and hydrochlorothiazide. IV hydration. Avoid nephrotoxic agents. Renal ultrasound. Continue indwelling urinary catheter. Urology consultation requested by ED -Dr. Mahajan. * Urinary tract infection. Ceftriaxone IV daily. Urine culture was obtained - will follow resutls. * Recurrent left leg cramps. * Hyperlipidemia. Continue statin. * Essential hypertension. Contiue metoprolol. * BPH. Continue Proscar and alfazosin alternative. * Gout. Continue allopurinol (dose adjusted to currently renal function). DVT prophylaxis: Heparin subcut Code status: Full (d/w patient and daughters) Patient will need hospitalization for at least 2 midnight for acute on chronic renal failure treatment with IV fluids and close monitoring of renal function. Patient will be seen by specialist. Quality Stroke Does the patient have a stroke diagnosis?: No VTE Prior VTE?: No VTE Risk Level:: Medical - moderate - high VTE Device Contraindication: Treatment Not Indicated VTE Drug Contraindication: N/A - Med Ordered
[2023-11-28 22:24] VITALS: TEMP 36.9
[2023-11-29 01:47] VITALS: BP 137/57; PULSE 61; RESP 16; TEMP 36.9; O2SAT 96
--- NOTE | 2023-11-29 02:58 | PC.NURSE ---
pt reported feeling intermittent cramps of LLE. pt stated does not think meds would help. pillow provided under leg which pt states helped with sx. pt reports feeling comfortable and will try to get some sleep. resp even and unlabored. call jett within reach.
[2023-11-29] MEDS: 0.9 % Sodium Chloride 1,000 ML 100 ML IVCONT ×2 (07:42→17:49)
[2023-11-29 07:46] VITALS: BP 145/64; PULSE 60; RESP 14; TEMP 36.9; O2SAT 95
--- NOTE | 2023-11-29 07:52 | PC.NURSE ---
continues to complain of cramps on and off in his left leg. alert and oriented, states that he ambulates at home independently with no assistive device. deleon remains in place. ultrasound at bedside
--- NOTE | 2023-11-29 08:56 | P.CNUR_ITS ---
History of Present Illness Consult details Consult date: 11/29/23 Narrative: Buck is an 88 year old male who is s/p cysto TURBT last week for a bladder tumor, presented to the ED due to calf pain and was noted to have MIGUEL A. He denies abdominal pain. 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 Review of Systems 2 Review of Systems: 10 point ROS negative other than stated in HPI [facility] Past Medical History Medical History CKD (chronic kidney disease) stage 3, GFR 30-59 ml/min Hyperlipidemia Gout Essential hypertension Diabetes Chronic renal disease Chronic renal insufficiency CAD (coronary artery disease) History of hematuria Family History Family History Sister Bipolar 1 disorder Mother Cancer Surgical History Surgical History Hx of CABG FH: cholecystectomy Hx of hernia repair History of quadruple bypass Social History Social History Household Members: None Housing: Apartment Do you presently have visiting nurse or other home services: No Alcohol intake: current Patient Tobacco Use Status: Former Tobacco user Tobacco use type: Cigar Second Hand Smoke Exposure: No Advance Directives Date on File: 11/18/23 service: Yes Meds Allergies Allergy/AdvReac Type Severity Reaction Status Date / Time No Known Allergies Allergy Verified 11/28/23 12:54 [No Known Allergies*] Active Medications: Current Medications Allopurinol (Allopurinol 100 Mg Tablet) 50 mg PO DAILY [facility] Atorvastatin Calcium (Atorvastatin Calcium 20 Mg Tablet) 20 mg PO DAILY [facility] Finasteride (Finasteride 5 Mg Tablet) 5 mg PO DAILY [facility] Heparin Sodium (Porcine) (Heparin Sodium,Porcine 5,000 Unit/Ml Vial) 5,000 unit SUBCUT Q12H [facility] Ceftriaxone Sodium 1 gm/ (Sodium Chloride) 50 mls @ 100 mls/hr IV Q24H [facility] Sodium Chloride (Ns) 1,000 mls @ 100 mls/hr IVCONT .Q10H [facility] Last Admin: 11/29/23 07:42 Dose: 100 mls/hr Metoprolol Tartrate (Metoprolol Tartrate 25 Mg Tablet) 25 mg PO BID [facility]; Protocol Phenazopyridine HCl (Phenazopyridine Hcl 100 Mg Tablet) 100 mg PO BIDWM PRN PRN Reason: Pain, Mild (Pain Scale 1-3) Stop: 11/30/23 21:17 Sodium Chloride (0.9 % Sodium Chloride Flush 3 Ml Syringe) 3 ml IVFLUSH QSHIFT [facility] Last Admin: 11/29/23 07:43 Dose: Not Given Tamsulosin HCl (Tamsulosin Hcl 0.4 Mg Capsule) 0.4 mg PO DAILY [facility] Home Medications Medication Instructions Recorded Confirmed Last Taken Type atorvastatin 20 mg tablet (Lipitor) 20 mg PO DAILY 08/18/23 11/28/23 Unknown History hydrochlorothiazide 25 mg tablet 25 mg PO DAILY 08/18/23 11/28/23 Unknown History lisinopril 20 mg tablet 20 mg PO DAILY 08/18/23 11/28/23 Unknown History metoprolol succinate 25 mg 25 mg PO DAILY 08/18/23 11/28/23 11/16/22 History tablet,extended release 24 hr (Toprol XL) allopurinol 100 mg tablet 200 mg PO DAILY 11/16/23 11/28/23 11/15/23 History Physical Exam 2 Vital Signs: Vital Signs: Last Vital Signs Temp 98.4 F 11/29/23 07:46 Pulse 60 11/29/23 07:46 Resp 14 11/29/23 07:46 BP 145/64 H 11/29/23 07:46 Pulse Ox 95 11/29/23 07:46 O2 Del Method Room Air 11/29/23 07:46 BMI result Body Mass Index 23.6 Const: General: healthy appearing, no acute distress and well developed O rientation/consciousness: patient oriented x3 HEENT: Head: Yes normocephalic and Yes atraumatic Eyes: Conjunctivae: conjunctivae normal Neck: Neck: Yes normal visual inspection Chest: Chest palpation & inspection: normal inspection of the chest Resp: Effort & Inspection: normal respiratory effort Cardio: Rate: regular rate GI: Inspection: Yes normal to inspection Palpation (GI): Soft to palpation : Other: deleon draining orange tinged urine Skin: General skin exam: no rashes or lesions noted Neuro: General: patient oriented x3 Psych: Appearance: grossly normal Affect: normal affect Results Labs 11/28/23 13:02 11/29/23 09:09 Labs: Abnormal lab results 11/28/23 11/28/23 11/28/23 Range/Units 13:02 17:33 19:02 Hct 41.7 L (42.0-52.0) % Immature Gran % (Auto) 0.5 H (0.0-0.4) % Neut % (Auto) 82.2 H (45-73) % Lymph % (Auto) 7.7 L (20-40) % Lymph # (Auto) 0.8 L (1.2-4.9) X10*3/uL Abs Immat Gran (auto) 0.05 H (0.00-0.03) X10*3/uL BUN 56 H 53 H (9-16) mg/dL Creatinine 2.41 H 2.16 H (0.5-1.4) mg/dL Random Glucose 121 H (60-115) mg/dL Urine Color [place] A Urine Protein 30 (1+) H (Neg-Trace) mg/dL Urine Blood Moderate (2+) H (Negative) Urine Nitrite Positive H (Negative) Ur Leukocyte Esterase Large (3+) H (Negative) Urine RBC 11-20 H (0-2) /HPF Short CBC 11/28/23 Range/Units 13:02 WBC 10.1 (4.8-10.8) X10*3/uL Hgb 14.1 (14.0-18.0) g/dl Hct 41.7 L (42.0-52.0) % Plt Count 231 (160-400) X10*3/uL BMP 11/28/23 11/28/23 13:02 19:02 Sodium 138 142 Potassium 4.8 4.6 Chloride 103 108 Carbon Dioxide 25 22 BUN 56 H 53 H Creatinine 2.41 H 2.16 H Calcium 9.6 8.4 D Cardiac Enzymes 11/28/23 Range/Units 13:02 Total Creatine Kinase 54 (38-174) U/L Liver Function 11/28/23 Range/Units 13:02 Total Bilirubin 1.0 (0.0-1.0) mg/dL AST 13 (5-37) U/L ALT 19 (0-40) U/L Alkaline Phosphatase 88 (39-117) U/L Albumin 4.0 (3.5-5.0) g/dL Urine 11/28/23 Range/Units 17:33 Urine Color [place] A Urine Appearance Clear Urine pH 6.5 (5.0-9.0) Ur Specific [place] 1.015 (1.005-1.025) Urine Protein 30 (1+) H (Neg-Trace) mg/dL Urine Glucose (UA) Negative (Negative) mg/dL All other labs normal. Assessment and Plan (1) Bladder cancer: Status: Acute (2) Acute kidney injury superimposed on chronic kidney disease: Status: Acute (3) BPH loc w urin obs/LUTS: Status: Acute Plan Renal US today renal function slightly improved with hydration stop pyridium Remove deleon for voiding trial tomorrow Procedures Date of Service Date of Service: 11/29/23
[2023-11-29 09:29] LABS: Anion Gap 11 (12-20); Blood Urea Nitrogen 46 mg/dL (9-16); Calcium 8.3 mg/dL (8.4-10.2); Carbon Dioxide 23 mmol/L (22-29); Chloride 112 mmol/L (96-108); Creatinine Clr Calc Pharmacy 23.4; Estimated Glomerular Filt Rate 33; Glucose Random 104 mg/dL (60-115); Potassium 4.5 mmol/L (3.3-5.1); Sodium 141 mmol/L (135-145)
[2023-11-29] MEDS: Atorvastatin Calcium 20 MG TABLET PO (09:30)
[2023-11-29] MEDS: Heparin Sodium,Porcine 5,000 UNIT/ML VIAL 5000 UNIT SUBCUT ×2 (09:30→20:37)
[2023-11-29] MEDS: allopurinoL 100 MG TABLET 50 MG PO (09:32)
[2023-11-29] MEDS: Tamsulosin HCL 0.4 MG CAPSULE PO (09:32)
[2023-11-29] MEDS: Finasteride 5 MG TABLET PO (09:38)
--- NOTE | 2023-11-29 09:43 | PHA.MEDREC ---
Addendum entered by Aleyda Lisa [facility] 11/29/23 09:45: patient is on 200 mg allopurinol Original Note: Pharmacy Consult ? Medication Reconciliation Pharmacy has reviewed the medication reconciliation done by hospitalist. Called [facility] to confirm medications as they were not showing in claims. [facility] has recent pick ups for all medication except lisinopril and metoprolol, both of which last picked up 07/27/23 for 90 day supplies
--- NOTE | 2023-11-29 09:44 | MHC.CM.PN ---
Patient is unavailable; CM spoke with Patient's Daughter/HCP/Mary Lou @ [phone] and addressed IMM with her (original will be mailed certified letter to Mary Lou and a copy placed on the chart). Patient lives alone in an apartment and he required no services nor DME [employer]. Home/self care is the goal and CM has initiated and will follow fir dc planning. Patient has no Part D coverage (he would not want staff to know this);a referral will be made to [facility]. PCP is Dr. Myke Silva.
--- NOTE | 2023-11-29 11:34 | HO.PM.IMPN ---
Subjective Subjective Date of Service: 11/30/23 Interval History: f/u on miguel a Cr better bit not at baseline Physical Exam Vital Signs: Vital Signs: Last Vital Signs Temp 98.4 F 11/29/23 07:46 Pulse 60 11/29/23 07:46 Resp 14 11/29/23 07:46 BP 145/64 H 11/29/23 07:46 Pulse Ox 95 11/29/23 07:46 O2 Del Method Room Air 11/29/23 07:46 BMI result Body Mass Index 23.6 Const: Other: General: AO X 3, no acute distress Resp: CTA bilateral CVS: S1,S2,RRR GI: +BS, NT, no distention Skin: No rash Neuro: motor grossly intact Psych: appropriate affect Objective Data Active Medications Allopurinol (Allopurinol 100 Mg Tablet) 50 mg PO DAILY [facility] Last Admin: 11/29/23 09:32 Dose: 50 mg Documented By: BATSHEVA Allopurinol (Allopurinol 100 Mg Tablet) 200 mg PO DAILY [facility] Last Admin: 11/29/23 09:47 Dose: Not Given Documented By: BATSHEVA Non-Admin Reason: Duplicate Order Atorvastatin Calcium (Atorvastatin Calcium 20 Mg Tablet) 20 mg PO DAILY [facility] Last Admin: 11/29/23 09:30 Dose: 20 mg Documented By: BATSHEVA Finasteride (Finasteride 5 Mg Tablet) 5 mg PO DAILY [facility] Last Admin: 11/29/23 09:38 Dose: 5 mg Documented By: BATSHEVA Heparin Sodium (Porcine) (Heparin Sodium,Porcine 5,000 Unit/Ml Vial) 5,000 unit SUBCUT Q12H [facility] Last Admin: 11/29/23 09:30 Dose: 5,000 unit Documented By: BATSHEVA Ceftriaxone Sodium 1 gm/ (Sodium Chloride) 50 mls @ 100 mls/hr IV Q24H [facility] Sodium Chloride (Ns) 1,000 mls @ 100 mls/hr IVCONT .Q10H [facility] Last Admin: 11/29/23 07:42 Dose: 100 mls/hr Documented By: BATSHEVA Metoprolol Tartrate (Metoprolol Tartrate 25 Mg Tablet) 25 mg PO BID [facility]; Protocol Last Admin: 11/29/23 09:32 Dose: Not Given Documented By: BATSHEVA Non-Admin Reason: Decreased Heart Rate Phenazopyridine HCl (Phenazopyridine Hcl 100 Mg Tablet) 100 mg PO BIDWM PRN PRN Reason: Pain, Mild (Pain Scale 1-3) Stop: 11/30/23 21:17 Sodium Chloride (0.9 % Sodium Chloride Flush 3 Ml Syringe) 3 ml IVFLUSH QSHIFT [facility] Last Admin: 11/29/23 07:43 Dose: Not Given Documented By: BATSHEVA Non-Admin Reason: IV Running Tamsulosin HCl (Tamsulosin Hcl 0.4 Mg Capsule) 0.4 mg PO DAILY [facility] Last Admin: 11/29/23 09:32 Dose: 0.4 mg Documented By: BATSHEVA Labs 11/28/23 13:02 11/30/23 05:13 Labs: Laboratory Results - last 24 hr 11/28/23 11/28/23 11/28/23 13:02 17:33 19:02 MCV 87.6 MCH 29.6 MCHC 33.8 RDW 12.8 Plt Count 231 MPV 9.6 Immature Gran % (Auto) 0.5 H Neut % (Auto) 82.2 H Lymph % (Auto) 7.7 L [place] % (Auto) 7.3 Eos % (Auto) 1.8 Baso % (Auto) 0.5 Lymph # (Auto) 0.8 L [place] # (Auto) 0.7 Eos # (Auto) 0.2 Baso # (Auto) 0.1 Abs Immat Gran (auto) 0.05 H Absolute Neuts (auto) 8.3 Absolute Nucleated RBC 0.000 Nucleated RBC % (auto) 0.0 PT 13.1 INR 1.1 APTT 28.2 Anion Gap 15 17 Estim Creat Clear Calc 18.7 20.9 Estimated GFR 26 29 Random Glucose 121 H 108 Calcium 9.6 8.4 D Magnesium 2.3 Total Bilirubin 1.0 AST 13 ALT 19 Alkaline Phosphatase 88 Total Creatine Kinase 54 Total Protein 7.1 Albumin 4.0 Urine Color [place] A Urine Appearance Clear Urine pH 6.5 Ur Specific [place] 1.015 Urine Protein 30 (1+) H Urine Glucose (UA) Negative Urine Ketones Negative Urine Blood Moderate (2+) H Urine Nitrite Positive H Ur Leukocyte Esterase Large (3+) H Urine RBC 11-20 H Urine WBC 11-20 Ur Squamous Epith Cells 3-5 Urine Bacteria None Seen Hyaline Casts 0-2 11/29/23 09:09 MCV MCH MCHC RDW Plt Count MPV Immature Gran % (Auto) Neut % (Auto) Lymph % (Auto) [place] % (Auto) Eos % (Auto) Baso % (Auto) Lymph # (Auto) [place] # (Auto) Eos # (Auto) Baso # (Auto) Abs Immat Gran (auto) Absolute Neuts (auto) Absolute Nucleated RBC Nucleated RBC % (auto) PT INR APTT Anion Gap 11 L Estim Creat Clear Calc 23.4 Estimated GFR 33 Random Glucose 104 Calcium 8.3 L Magnesium Total Bilirubin AST ALT Alkaline Phosphatase Total Creatine Kinase Total Protein Albumin Urine Color Urine Appearance Urine pH Ur Specific [place] Urine Protein Urine Glucose (UA) Urine Ketones Urine Blood Urine Nitrite Ur Leukocyte Esterase Urine RBC Urine WBC Ur Squamous Epith Cells Urine Bacteria Hyaline Casts Microbiology Microbiology Results: Microbiology 11/28/23 Unknown Urine Culture - Preliminary Urine clean catch - Clean Catch Midstream No growth to date. Assessment and Plan (1) Bladder cancer: Status: Acute (2) CKD (chronic kidney disease) stage 3, GFR 30-59 ml/min: Status: Acute (3) Hyperlipidemia: Status: Acute Plan 88 years old man with CKD, HLD, HTN, recent history of TURB d/t bladder mass and has deleon since, presented wit calf pain and work up has revealed MIGUEL A on CKD MIGUEL A on CKD 4, neg obstruction on US, suspect pre renal and agravated lisniprol and HCTZ, Cr is improving. -continue IVF, hold ANH and HCTZ -Nephrology consult UTI--Ceftriaxone started on 11/28/23, Ceftin at DC, cultures pending Recurrent left leg cramps--etiology unclear, could be related to renal failure, consider quinine Hyperlipidemia. Continue statin. Essential hypertension. Contiue metoprolol, Hold ANH and HCtZ, add norvasc if needed BPH. Continue Proscar and alfazosin alternative. Gout. Continue allopurinol (dose adjusted to currently renal function). S/P TURB, pathology negative for malignancy DVT prophylaxis: Heparin subcut Code status: Full (d/w patient and daughters) need for inpt: MIGUEL A treatment with IvF Quality Stroke Does the patient have a stroke diagnosis?: No VTE Prior VTE?: No VTE Risk Level:: Medical - moderate - high VTE Device Contraindication: Treatment Not Indicated VTE Drug Contraindication: N/A - Med Ordered
[2023-11-29 12:07] VITALS: BP 133/56; PULSE 62; RESP 18; TEMP 36.8; O2SAT 94
[2023-11-29 14:15] VITALS: BP 133/56; PULSE 62; O2SAT 94
[2023-11-29 16:22] VITALS: BMI 25.9
[2023-11-29 16:23] VITALS: BP 164/70; PULSE 55; RESP 16; TEMP 36.3; O2SAT 97
--- NOTE | 2023-11-29 16:28 | PC.NURSE ---
Noted Admin Assessment: MIGUEL A, UTI
--- NOTE | 2023-11-29 18:01 | PC.NURSE ---
BP high, holding ANH and HTCZ, asymptomatic at this time. Continue to monitor.
[2023-11-29 19:39] VITALS: BP 147/72; PULSE 55; RESP 16; TEMP 36.4; O2SAT 97
[2023-11-29] MEDS: Metoprolol Tartrate 25 MG TABLET PO (20:36)
[2023-11-29] MEDS: cefTRIAXone sodium 1 GM in 0.9 % Sodium Chloride 50 ML IV (21:31)
[2023-11-30 03:52] VITALS: BP 148/64; PULSE 50; RESP 16; TEMP 36.2; O2SAT 95
[2023-11-30] MEDS: 0.9 % Sodium Chloride 1,000 ML 100 ML IVCONT (03:57)
[2023-11-30 05:37] LABS: Anion Gap 11 (12-20); Blood Urea Nitrogen 35 mg/dL (9-16); Calcium 8.2 mg/dL (8.4-10.2); Carbon Dioxide 21 mmol/L (22-29); Chloride 115 mmol/L (96-108); Creatinine Clr Calc Pharmacy 27.2; Estimated Glomerular Filt Rate 39; Glucose Random 106 mg/dL (60-115); Potassium 4.4 mmol/L (3.3-5.1); Sodium 143 mmol/L (135-145)
[2023-11-30 07:34] VITALS: BP 150/69; PULSE 50; RESP 17; TEMP 36.4; O2SAT 95
--- NOTE | 2023-11-30 07:46 | P.PNUR_ITS ---
Subjective Subjective Date of Service: 11/30/23 Patient reports: no new complaints and feels better Physical Exam 2 Vital Signs: Vital Signs: Last Vital Signs Temp 97.5 F 11/30/23 07:34 Pulse 50 11/30/23 07:34 Resp 17 11/30/23 07:34 BP 150/69 H 11/30/23 07:34 Pulse Ox 95 11/30/23 07:34 O2 Del Method Room Air 11/30/23 07:34 BMI result Body Mass Index 25.9 Urology Results Labs 11/28/23 13:02 11/30/23 05:13 Labs: Laboratory Results - last 24 hr 11/29/23 11/30/23 09:09 05:13 Sodium 141 143 Potassium 4.5 4.4 Chloride 112 H 115 H Carbon Dioxide 23 21 L Anion Gap 11 L 11 L BUN 46 H 35 H Creatinine 1.93 H 1.66 H Estim Creat Clear Calc 23.4 27.2 Estimated GFR 33 39 Random Glucose 104 106 Calcium 8.3 L 8.2 L Progress Note: A&P Assessment and plan (1) Bladder cancer: Status: Acute (2) Acute kidney injury superimposed on chronic kidney disease: Status: Acute Plan Renal function improving d/c deleon Time Spent With Patient Time: Total time managing care of this patient today ____ minutes. Progress Note: Quality Stroke Does the patient have a stroke diagnosis?: No
[2023-11-30] MEDS: Atorvastatin Calcium 20 MG TABLET PO (08:35)
[2023-11-30] MEDS: Finasteride 5 MG TABLET PO (08:35)
[2023-11-30] MEDS: Tamsulosin HCL 0.4 MG CAPSULE PO (08:35)
[2023-11-30] MEDS: allopurinoL 100 MG TABLET 200 MG PO (08:35)
[2023-11-30] MEDS: allopurinoL 100 MG TABLET 50 MG PO (08:35)
[2023-11-30] MEDS: Heparin Sodium,Porcine 5,000 UNIT/ML VIAL 5000 UNIT SUBCUT (08:36)
[2023-11-30 08:39] VITALS: PULSE 54
--- NOTE | 2023-11-30 08:42 | PC.NURSE ---
F/C removed at this time
[2023-11-30 08:56] VITALS: PULSE 54
--- NOTE | 2023-11-30 09:23 | PM.CNNEP ---
History of Present Illness Reason for Consult Consult date: 11/30/23 Reason for consult: MIGUEL A Chief Complaint Chief complaint: acute on chronic acute renal failure History of Present Illness Narrative: 88 years old man with CKD stage 3 at baseline, as well as hypertension hypertension on HCTZ + lisinopril presented to the emergency department complaining of multiple events of left leg crampy pain. There is no associated swelling or redness. No recent trauma to the left leg. He recently underwent a cystoscopy with transurethral resection of bladder tumor (fulguration, random bladder biopsies; November 16) by Dr. Mahajan. A indwelling urinary catheter was placed after this procedure. He does complain of occasional urinary pain for which he has been taking Pyridium. He denied any chest pain, shortness on breath, abdominal pain, nausea or vomiting. He also denied diarrhea what mentioned that in occasions he have soft stools. There is no fever or chills reported. He does not have history of alcohol abuse or illicit drug use. Patient feels that he has been drinking enough water daily. His initial creatinine went up to 2.41 recently. (his creatine was 1.5 on 11-04-2023). He was admitted for further management. Nephrology has been consulted to assist in his clinical care during his current hospital stay. Review of Systems Review of Systems Yes all other systems are reviewed and are negative PMFSH Past Medical History Medical History CKD (chronic kidney disease) stage 3, GFR 30-59 ml/min Hyperlipidemia Gout Essential hypertension Diabetes Chronic renal disease Chronic renal insufficiency CAD (coronary artery disease) History of hematuria Family History Family History Sister Bipolar 1 disorder Mother Cancer Surgical History Surgical History Hx of CABG FH: cholecystectomy Hx of hernia repair History of quadruple bypass Social History Social History Household Members: None Housing: Apartment Do you presently have visiting nurse or other home services: No Alcohol intake: current Patient Tobacco Use Status: Former Tobacco user Tobacco use type: Cigar Second Hand Smoke Exposure: No Advance Directives Date on File: 11/18/23 service: Yes Meds Allergies Allergy/AdvReac Type Severity Reaction Status Date / Time No Known Allergies Allergy Verified 11/28/23 12:54 [No Known Allergies*] Active Medications: Current Medications Allopurinol (Allopurinol 100 Mg Tablet) 50 mg PO DAILY [facility] Last Admin: 11/30/23 08:35 Dose: 50 mg Allopurinol (Allopurinol 100 Mg Tablet) 200 mg PO DAILY [facility] Last Admin: 11/30/23 08:35 Dose: 200 mg Atorvastatin Calcium (Atorvastatin Calcium 20 Mg Tablet) 20 mg PO DAILY [facility] Last Admin: 11/30/23 08:35 Dose: 20 mg Finasteride (Finasteride 5 Mg Tablet) 5 mg PO DAILY [facility] Last Admin: 11/30/23 08:35 Dose: 5 mg Heparin Sodium (Porcine) (Heparin Sodium,Porcine 5,000 Unit/Ml Vial) 5,000 unit SUBCUT Q12H [facility] Last Admin: 11/30/23 08:36 Dose: 5,000 unit Ceftriaxone Sodium 1 gm/ (Sodium Chloride) 50 mls @ 100 mls/hr IV Q24H [facility] Last Infusion: 11/29/23 22:50 Dose: Infused Metoprolol Tartrate (Metoprolol Tartrate 25 Mg Tablet) 25 mg PO BID [facility]; Protocol Last Admin: 11/30/23 08:39 Dose: Not Given Phenazopyridine HCl (Phenazopyridine Hcl 100 Mg Tablet) 100 mg PO BIDWM PRN PRN Reason: Pain, Mild (Pain Scale 1-3) Stop: 11/30/23 21:17 Sodium Chloride (0.9 % Sodium Chloride Flush 3 Ml Syringe) 3 ml IVFLUSH QSHIFT [facility] Last Admin: 11/30/23 07:03 Dose: Not Given Tamsulosin HCl (Tamsulosin Hcl 0.4 Mg Capsule) 0.4 mg PO DAILY [facility] Last Admin: 11/30/23 08:35 Dose: 0.4 mg Home Medications Medication Instructions Recorded Confirmed Last Taken Type atorvastatin 20 mg tablet (Lipitor) 20 mg PO DAILY 08/18/23 11/28/23 Unknown History hydrochlorothiazide 25 mg tablet 25 mg PO DAILY 08/18/23 11/28/23 Unknown History lisinopril 20 mg tablet 20 mg PO DAILY 08/18/23 11/28/23 Unknown History metoprolol succinate 25 mg 25 mg PO DAILY 08/18/23 11/28/23 11/16/22 History tablet,extended release 24 hr (Toprol XL) allopurinol 100 mg tablet 200 mg PO DAILY 11/16/23 11/28/23 11/15/23 History Physical Exam Vital Signs: Last Vital Signs Temp 97.5 F 11/30/23 07:34 Pulse 54 11/30/23 08:56 Resp 17 11/30/23 07:34 BP 150/69 H 11/30/23 07:34 Pulse Ox 95 11/30/23 07:34 O2 Del Method Room Air 11/30/23 07:34 BMI result Body Mass Index 25.9 Const General: comfortable and no acute distress Orientation/consciousness: patient oriented x3 HEENT Head: Yes normocephalic Mouth: Normal oral and palatal mucosa present Eyes EOM: EOMs intact bilaterally Neck Neck: Yes supple Resp Auscultation: clear to auscultation bilaterally Cardio Jugular venous distension: no JVD Rate: regular rate GI Palpation (GI): Soft to palpation Auscultation: normal bowel sounds General: Yes no CVA tenderness Back/Spine/Pelvis Back: no CVA tenderness Skin General skin exam: no rashes or lesions noted Neuro General: patient oriented x3 and moves all extremities Extrem General: Yes no pedal edema Results Lab Results 11/28/23 13:02 11/30/23 05:13 Lab results: Chemistry 11/28/23 11/28/23 11/29/23 13:02 19:02 09:09 Sodium 138 142 141 Potassium 4.8 4.6 4.5 Carbon Dioxide 25 22 23 BUN 56 H 53 H 46 H Creatinine 2.41 H 2.16 H 1.93 H Calcium 9.6 8.4 D 8.3 L 11/30/23 05:13 Sodium 143 Potassium 4.4 Carbon Dioxide 21 L BUN 35 H Creatinine 1.66 H Calcium 8.2 L Hematology 11/28/23 13:02 WBC 10.1 Hgb 14.1 Plt Count 231 Urinalysis 11/28/23 17:33 Urine Color [place] A Urine Appearance Clear Urine pH 6.5 Ur Specific [place] 1.015 Urine Protein 30 (1+) H Urine Glucose (UA) Negative Urine Ketones Negative Urine Blood Moderate (2+) H Urine Nitrite Positive H Ur Leukocyte Esterase Large (3+) H Urine RBC 11-20 H Urine WBC 11-20 Ur Squamous Epith Cells 3-5 Hyaline Casts 0-2 Assessment and Plan (1) Acute kidney injury superimposed on chronic kidney disease: Status: Acute (2) Essential hypertension: Status: Acute Plan Mr. Gary most likely had mild tubular injury which has been resolving. He has stage chronic kidney disease 3 at baseline. His renal functions are steadily improving after holding lisinopril and hydrochlorothiazide. His volume status is optimal. Urology colleagues have seen him and suggested to take the Latif catheter out. He could be initiated on low-dose amlodipine to maintain his blood pressure at goal. We shall hold his ANH inhibitor and diuretics until he is going to be reviewed by me in the office for continued follow-up and care. Procedures Date of Service Date of Service: 11/30/23
--- NOTE | 2023-11-30 11:48 | MHC.CM.PN ---
IMM 11/29/23 Patient is discharged to home self care. He has arranged for a family member to provide transportation home.
--- NOTE | 2023-11-30 12:21 | PM.DS ---
DS: Providers Provider Date of Service: 11/30/23 Date of admission: 11/28/23 20:59 Primary care physician: Myke Silva MD Consults: 11/28/23 21:37 Consult to Urology Routine Consulting Provider: Veena Yun Reason for consultation: s/p cystoscopy/bladder biopsy w/ MIGUEL A Has provider been notified: Yes 11/29/23 09:00 Consult to Nephrology Routine Consulting Provider: [facility] [place] [facility] Reason for consultation: MIGUEL A on CKD Has provider been notified: No DS: Diagnosis Discharge Diagnosis (1) Acute kidney injury superimposed on chronic kidney disease: Status: Acute (2) Essential hypertension: Status: Acute DS: Summary Hospital Course Hospital Course: Attending physician on admission: Debby Lira Chief Complaint: Left leg crampy pain Buck Gary is a very pleasant 88 years old man with past medical history significant for CKD stage 3, hypertension on HCTZ + lisinopril and hyperlipidemia who presents to the emergency department complaining of multiple events of left leg crampy pain. There is no associated swelling or redness. No recent trauma to the left leg. He recently underwent a cystoscopy with transurethral resection of bladder tumor (fulguration, random bladder biopsies; November 16) by Dr. Mahajan. A indwelling urinary catheter was placed after this procedure. He does complain of occasional urinary pain for which he has been taking Pyridium. He denied any chest pain, shortness on breath, abdominal pain, nausea or vomiting. He also denied diarrhea what mentioned that in occasions he have soft stools. There is no fever or chills reported. He is a former tobacco smoking and quit more than 30 years ago. He does not have history of alcohol abuse or illicit drug use. Patient feels that he has been drinking enough water daily. Buck told me he loves to dance! In the ED, his vital signs are stable. Last blood pressure is 150/59. Blood workup showed no leukocytosis. His initial creatinine was 2.41 and slightly dropped to 2.6 after a bolus of normal saline. (his creatine was 1.5 on 11-04-2023). There is no hyperkalemia or metabolic acidosis. Urine showed finding consistent with urinary tract infection. ED tx: Keflex 500 mg p.o., 1 g. NS bolus 1 L. Hospital course: Patient presented with leg cramps and was found to have MIGUEL A, he had recently had a TURB and had an indwelling deleon catheter. US of the legs were negative for DVT. UA showed UTI, and renal function showed MIGUEL A on top of CKD. He was admitted for management of MIGUEL A and given IVF and over the course of 2 days, renal function returned to baseline. HCTZ and Lisinopril have been stopped. UTI was treated with Ceftriaxone and will be changed to oral ceftin at discharge. Norvasc 2.5 mg is started for blood pressure Time Attestation Discharge coordination time: Greater than 30 minutes Quality: Safe Use of Opioids Does Pt have an Active Cancer Diagnosis on the Problem List?: No Quality: Stroke Does the patient have a stroke diagnosis?: No Physical Exam Vital Signs: Vital Signs: Last Vital Signs Temp 97.5 F 11/30/23 07:34 Pulse 54 11/30/23 08:56 Resp 17 11/30/23 07:34 BP 150/69 H 11/30/23 07:34 Pulse Ox 95 11/30/23 07:34 O2 Del Method Room Air 11/30/23 07:34 BMI result Body Mass Index 25.9 DS: Data Data Completed and Pending Labs on day of discharge: Laboratory Results - last 24 hr 11/30/23 05:13 Sodium 143 Potassium 4.4 Chloride 115 H Carbon Dioxide 21 L Anion Gap 11 L BUN 35 H Creatinine 1.66 H Estim Creat Clear Calc 27.2 Estimated GFR 39 Random Glucose 106 Calcium 8.2 L Preliminary micro results at discharge 11/28/23 21:15 Blood Culture - Preliminary Blood - Venous No growth after 24 hours. 11/28/23 21:15 Blood Culture - Preliminary Blood - Venous No growth after 24 hours. Discharge Plan Discharge Anticipated Discharge Date/Time: 11/30/23 11:00 Patient Disposition: Home, Self-Care Discharge Diagnosis: Acute kindney injury, Referrals: Nasir Garrett MD [Physician] - 1 Week Myke Silva MD [Primary Care Provider] - 1 Week Discharge Medications: New cefuroxime axetil 250 mg tablet 250 mg PO BID Qty: 8 0RF amlodipine [Norvasc] 2.5 mg tablet 2.5 mg PO DAILY Qty: 90 0RF Continued alfuzosin 10 mg tablet extended release 24 hr 10 mg PO DAILY Qty: 30 2RF Rx Instructions: administer after the same meal each day allopurinol 100 mg Tablet 200 mg PO DAILY atorvastatin [Lipitor] 20 mg tablet 20 mg PO DAILY metoprolol succinate [Toprol XL] 25 mg tablet extended release 24 hr 25 mg PO DAILY finasteride [Proscar] 5 mg tablet 5 mg PO DAILY 90 Days Qty: 90 3RF Discontinued lisinopril 20 mg tablet 20 mg PO DAILY hydrochlorothiazide 25 mg tablet 25 mg PO DAILY Discharge Orders: Discharge Order (Routine); Ordered 11/30/23 Ordered By: Sergio Hernandes Diet: Advance to usual diet Activity on Discharge: As tolerated Stand Alone Forms: Patient Portal Discharge page Care Plan Goals: Full recovery from urinary tract infection and renal failure Health Concerns: renal failure urinary tract infection Plan of Treatment: Take Cefuroxmine (Ceftin) 250 mg twice daily for 5 more days Stop taking Pyridium Stop taking Lisinopril and Hydrochlorothiazide Follow up with Dr. Georges or Dr. Garrett for kidney failure Assessment: See above Patient Instructions: Acute Kidney Injury (DC), Leg Cramps (ED)
[2023-11-30] MEDS: amLODIPine Besylate 2.5 MG TABLET PO (13:02)
--- NOTE | 2023-12-01 14:27 | P.CDIM_ITS ---
PROVIDER RESPONSE TEXT: To clarify, the appropriate diagnosis supported by the clinical indicators: Yes, UTI is related to / associated with / due to Latif catheter QUERY TEXT: >>> Provider Instructions - Do not remove this line >>> PHYSICIAN'S DOCUMENTATION REQUEST Date of Query: 11/30/2023 08:24 AM EST Patient Name: Annetta Gary Admit Date: 11/29/2023 Dear Sergio Hernandes, A review of the medical record indicates additional documentation may be needed. Please review below and update the documentation accordingly. Documentation includes the conditions of UTI and Latif catheter. Clinical Indicators: Patient is on IV Ceftriaxone Recent history of TURB due to bladder mass and has a Latif since Please clarify the relationship between these conditions: <<< Provider Instructions - Do not remove this line <<< Yes, UTI is related to / associated with / due to Latif catheter No, UTI is not related to / associated with / due to Latif catheter Other (explain) Clinically unable to determine (explain) >>> Contact Info - Do not remove this line>>> Thank you, Nancy Blanc RN Use of terms such as suspected, likely, concern for, or probable (associated with a specific diagnosi s that is being evaluated, monitored, or treated as if it exists) are acceptable and can be coded in the inpatient se tting, when documented at the time of discharge. Please use your independent medical judgment in providing your response. THIS QUERY IS PART OF THE PERMANENT MEDICAL RECORD <<< Contact Info - Do not remove this line <<< >>> Disclaimer - Do no remove this line>>> Extension: [phone] <<< Disclaimer - Do not remove this line<<<
== END 2023-11-30 13:18 | disposition home or self-care (01) | DRG 699 ==
LOC: HO.ED 20:55 → HO.EDOVER 21:03 → HO.S3 11-29 15:30
PROVIDERS: Nurse Practitioner Family; Physician Assistant; Admitting Provider Internal Medicine; Emergency Provider Internal Medicine; PCP Internal Medicine; Visit Provider Internal Medicine
DX: T83.511A Infection and inflammatory reaction due to indwelling urethral catheter, initial encounter (principal); N17.9 Acute kidney failure, unspecified; N39.0 Urinary tract infection, site not specified; C67.9 Malignant neoplasm of bladder, unspecified; I12.9 Hypertensive chronic kidney disease with stage 1 through stage 4 chronic kidney disease, or unspecified chronic kidney disease; R25.2 Cramp and spasm; N40.0 Benign prostatic hyperplasia without lower urinary tract symptoms; M10.9 Gout, unspecified; N18.30 Chronic kidney disease, stage 3 unspecified; I25.10 Atherosclerotic heart disease of native coronary artery without angina pectoris; Z95.1 Presence of aortocoronary bypass graft; Z87.891 Personal history of nicotine dependence; Z79.899 Other long term (current) drug therapy
CPT/HCPCS: 36415; 73590; 76775; 80048; 80053; 81001; 82550; 83735; 85025; 85610; 85730; 87040; 87086; 93971; 97116; 97162; 99285; J0690; J0696; J1644

== ENCOUNTER → 2023-11-28 20:59 | Outpatient (BNV) | payer MEDICARE, SELFPAY | PROVIDERS: Admitting Provider Internal Medicine; Emergency Provider Internal Medicine; PCP Internal Medicine; Visit Provider Urology | DX: C67.9 Malignant neoplasm of bladder, unspecified (principal); N17.9 Acute kidney failure, unspecified; N18.9 Chronic kidney disease, unspecified | CPT/HCPCS: 99222; 99231 ==

== ENCOUNTER → 2023-11-28 20:59 | Outpatient (BNV) | payer MEDICARE, SELFPAY | PROVIDERS: Admitting Provider Internal Medicine; Emergency Provider Internal Medicine; PCP Internal Medicine; Visit Provider Internal Medicine Nephrology | DX: N17.9 Acute kidney failure, unspecified (principal); I12.9 Hypertensive chronic kidney disease with stage 1 through stage 4 chronic kidney disease, or unspecified chronic kidney disease; N18.30 Chronic kidney disease, stage 3 unspecified | CPT/HCPCS: 99222 ==

== ENCOUNTER → 2023-11-28 20:59 | Outpatient (BNV) | payer MEDICARE, SELFPAY | PROVIDERS: Admitting Provider Internal Medicine; Emergency Provider Internal Medicine; PCP Internal Medicine; Visit Provider Internal Medicine | DX: N17.9 Acute kidney failure, unspecified (principal); N18.30 Chronic kidney disease, stage 3 unspecified; N30.00 Acute cystitis without hematuria; M10.9 Gout, unspecified; E78.5 Hyperlipidemia, unspecified | CPT/HCPCS: 99223; 99232; 99239 ==

== ENCOUNTER 2023-12-02 12:50 | Outpatient (AMB) | payer MEDICARE, SELFPAY ==
--- NOTE | 2023-12-02 12:58 | A.OFFVIS_ITS ---
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 The patient presented to the emergency room after discharge due to calf pain and was ruled out for DVT but noted to have acute kidney injury he was hydrated and had medication adjustments with improvement in his kidney function. He was discharged on alfuzosin. He states he is voiding well except for increased urinary urgency every 1-1/2 hours. Bladder scan PVR 33 mL. Review of chart: 09/22/2023 Cystocpy procedure performed . Cystoscopy findings: office cystoscopy noted a papillary bladder tumor in the right lateral wall which is suspicious appearing. 09/16/23--CT findings -no acute findings in the urinary tract noted on study. 12/02/2023-Plan: Finasteride, alfuzosin Surveillance cystoscopy every 3 months [facility] Medical History CKD (chronic kidney disease) stage 3, GFR 30-59 ml/min Hyperlipidemia Gout Essential hypertension Diabetes Chronic renal disease Chronic renal insufficiency CAD (coronary artery disease) History of hematuria Surgical History Hx of CABG FH: cholecystectomy Hx of hernia repair History of quadruple bypass Family History Sister Bipolar 1 disorder Mother Cancer Social History Household Members: None Housing: Apartment Do you presently have visiting nurse or other home services: No Alcohol intake: current Patient Tobacco Use Status: Former Tobacco user Tobacco use type: Cigar Second Hand Smoke Exposure: No Advance Directives Date on File: 11/18/23 service: Yes Review of Systems Const All systems reviewed & are unremarkable except as noted in HPI and below Reports no additional complaints Eyes Reports no additional complaints ENT Reports no additional complaints Card Denies dyspnea Resp Denies cough and Denies dyspnea GI Reports no additional complaints Musc Reports no additional complaints Skin/Breast Denies rash and Denies unusual bruising Neuro Reports no additional complaints Psych Reports no additional complaints Endo Reports no additional complaints Dell/Lymph Reports no additional complaints Aller/Immun Reports no additional complaints Office Procedures Post Void Residual Post Residual Void Post Void Residual (PVR): 33 [id number] Void Residual by ultrasound Results AMB Urinalysis, Automated UA Leukoctes 15 Zoey/uL Last Edit by FELI Tellez on 12/02/23 13:15 UA Nitrite Negative Last Edit by FELI Tellez on 12/02/23 13:15 UA Urobilinogen 0.2 mg/dL Last Edit by FELI Tellez on 12/02/23 13:1 5 UA Protein 15 mg/dL Last Edit by FELI Tellez on 12/02/23 13:15 UA pH 6.0 Last Edit by FELI Tellez on 12/02/23 13:15 UA Blood 25 Catarino/uL Last Edit by FELI Tellez on 12/02/23 13:15 1+ Juan David Downs 12/02/23 13:15 UA Specific Dubois 1.015 Last Edit by FELI Tellez on 12/02/23 13: 15 UA Ketone Negative Last Edit by FELI Tellez on 12/02/23 13:15 UA Bilirubin 0 mg/dL Last Edit by FELI Tellez on 12/02/23 13:15 UA Glucose 0 mg/dL Last Edit by FELI Tellez on 12/02/23 13:15 Results Reviewed Results Reviewed: Laboratory Last Values Urine pH (Auto) 6.0 12/02/23 13:13 Specific Dubois (Auto) 1.015 12/02/23 13:13 Urine Protein (Auto) 15 mg/dL 12/02/23 13:13 Glucose (UA)(Auto) 0 mg/dL 12/02/23 13:13 Urine Ketones (Auto) Negative 12/02/23 13:13 Urine Blood (Auto) 25 Catarino/uL 12/02/23 13:13 Urine Nitrite (Auto) Negative 12/02/23 13:13 Urine Bilirubin (Auto) 0 mg/dL 12/02/23 13:13 Urine Urobilinogen (Auto) 0.2 mg/dL 12/02/23 13:13 Leukocyte Esterase (Auto) 15 Zoey/uL 12/02/23 13:13 Collected: 11/16/23 Location: [facility] Received: 11/16/23 Diagnosis A. Bladder, left lateral wall, biopsy: Mildly inflamed and congested urothelial mucosa; muscularis propria present; negative for malignancy. B. Bladder, posterior wall, biopsy: Mildly inflamed and congested urothelial mucosa; muscularis propria present; negative for malignancy. C. Bladder, right, transurethral resection: - Low-grade papillary urothelial carcinoma, non-invasive. - Muscularis propria present. Bladder, transurethral resection/biopsy Procedure: Transurethral resection Tumor site: Right Histologic type: Papillary carcinoma Histologic grade: Low grade Muscularis propria: Present Extent of invasion: Non-invasive Lymphovascular invasion: Not identified Clinical History Neoplasm of bladder Microscopic Description A-C. Microscopic sections reviewed. Material Received A. Left lateral wall bladder bx B. Posterior wall bladder bx C. Bladder tumor, right Gross Description Received in 3 parts. Part A: Received in formalin, on Telfa, labeled ?left lateral wall bladder bx? are 2 pink-red irregular tissue fragments each measuring 0.2 cm, submitted in toto in a cassette labeled A. Date of Service: 09/16/23 EXAMINATION: CT ABDOMEN AND PELVIS WITHOUT CONTRAST CLINICAL INFORMATION: 88-year-old male with hematuria COMPARISON: 12/02/2016 FINDINGS: LUNG BASES: The visualized lung bases are unremarkable. LIVER, GALLBLADDER, AND BILIARY TREE: The liver is normal in size, shape, and attenuation. No focal hepatic lesion or biliary ductal dilatation is present. Gallbladder is not seen most likely surgically absent. PANCREAS: Unremarkable. SPLEEN: Unremarkable. ADRENAL GLANDS: Unremarkable. KIDNEYS AND URETERS: The kidneys are normal in size, shape, and attenuation. No hydronephrosis, hydroureter, or calculi seen. No perinephric stranding. BLADDER: Unremarkable. GASTROINTESTINAL TRACT: The small and large bowel are unremarkable. The appendix is unremarkable. ABDOMINAL WALL: No significant hernia is appreciated. LYMPH NODES: Normal. VASCULAR: Mild atherosclerotic calcifications seen in the abdominal aorta of normal caliber PELVIC VISCERA: Unremarkable. OSSEOUS STRUCTURES: Unremarkable. IMPRESSION: No explanation for hematuria. Status post cholecystectomy. Assessment & Plan Assessment & Plan (1) Bladder cancer: Code(s): C67.9 - Malignant neoplasm of bladder, unspecified (2) CKD (chronic kidney disease) stage 3, GFR 30-59 ml/min: Code(s): N18.30 - Chronic kidney disease, stage 3 unspecified (3) BPH loc w urin obs/LUTS: Code(s): N40.1 - Benign prostatic hyperplasia with lower urinary tract symptoms Plan Finasteride, alfuzosin Surveillance cystoscopy every 3 months Orders: Orders AMB Urinalysis Automated Today Z13.9 - Encounter for screening, unspecified AMB Post Void Residual by ultrasound Today N39.8 - Other specified disorders of urinary system Patient Instructions: The patient had an opportunity to ask questions regarding treatment plan. All questions were answered. Imaging, Laboratory studies and physical exam results were discussed and reviewed in detail. No major barriers to understanding were identified. The patient expressed understanding and agreement with the above treatment plan. The patient is aware they should contact our office by phone for worsening of their current condition or the appearance of new symptoms. Compliance is encouraged with any medications and followup testing that is ordered. It is a privilege to be allowed the opportunity to participate in the urologic care of your patient. If you have any questions or concerns regarding treatment for the above conditions please do not hesitate to contact me. The office telephone contact is [phone]. This note is constructed in part using voice recognition software. While every effort has been made to ensure accuracy coke burner errors may have been included. Yours sincerely, Veena Yun MD Coding Level of Care Code Est Pt Level 4 (01215) Diagnoses Bladder cancer C67.9 CKD (chronic kidney disease) stage 3, GFR 30-59 ml/min N18.30 BPH loc w urin obs/LUTS N40.1 CPT Codes Post Residual Void - PVR CPT Code: [id number] Void Residual by ultrasound ([id number])
== END 2023-12-02 13:39 | disposition home or self-care (01) ==
PROVIDERS: PCP Internal Medicine; Visit Provider Urology
DX: C67.5 Malignant neoplasm of bladder neck (principal); N18.30 Chronic kidney disease, stage 3 unspecified; N40.1 Benign prostatic hyperplasia with lower urinary tract symptoms; Z13.9 Encounter for screening, unspecified
CPT/HCPCS: 99214

== ENCOUNTER → 2023-12-02 12:50 | Outpatient (BNVA) | payer MEDICARE, MEDICAID, SELFPAY | PROVIDERS: PCP Internal Medicine; Visit Provider Urology | DX: C67.9 Malignant neoplasm of bladder, unspecified (principal); N18.30 Chronic kidney disease, stage 3 unspecified; N40.1 Benign prostatic hyperplasia with lower urinary tract symptoms; N13.8 Other obstructive and reflux uropathy; N39.8 Other specified disorders of urinary system | CPT/HCPCS: 51798; 81003; 99212 ==

== ENCOUNTER 2023-12-08 10:14 | Outpatient (AMB) | payer MEDICARE, SELFPAY ==
--- NOTE | 2023-12-08 10:16 | HO.NEPHOV_ITS ---
HPI HPI Comments History of Present Illness Details 88 years old man with CKD stage 3 at [facility], as well as hypertension hypertension on HCTZ + lisinopril who recently presented to the emergency department complaining of multiple events of left leg crampy pain. He recently underwent a cystoscopy with transurethral resection of bladder tumor (fulguration, random bladder biopsies; November 16) by Dr. Mahajan. A indwelling urinary catheter was placed after this procedure. He does complain of occasional urinary pain for which he had been taking Pyridium. He denied any chest pain, shortness on breath, abdominal pain, nausea or vomiting. He also denied diarrhea what mentioned that in occasions he have soft stools. There is no fever or chills reported. He does not have history of alcohol abuse or illicit drug use. Patient feels that he has been drinking enough water daily. His initial creatinine went up to 2.41 recently. (his creatine was 1.5 on 11-04-2023). He was admitted for further management. Just with holding HCTZ and lisinopril and with supportive care, his serum creatinine had settled to baseline prior to hospital discharge. He has a PCP visit this afternoon. He also has a follow-up with his urologist in 3 months. He thinks he is going to get a cystoscopy at that time. He did not have any new complaints at the time of this office visit. His blood pressure control has been suboptimal after hospitalization. He has history of CABG but denies any chest pain, palpitation, shortness of breath, proximal nocturnal dyspnea, orthopnea, pedal edema. He is compliant with his medications and otherwise feels well [facility] Medical History (Updated 12/09/23 @ 10:12 by Dagoberto Georges MD) CKD (chronic kidney disease) stage 3, GFR 30-59 ml/min Hyperlipidemia Gout Essential hypertension Diabetes Chronic renal disease Chronic renal insufficiency CAD (coronary artery disease) History of hematuria Surgical History Hx of CABG FH: cholecystectomy Hx of hernia repair History of quadruple bypass Family History Sister Bipolar 1 disorder Mother Cancer Social History Household Members: None Housing: Apartment Do you presently have visiting nurse or other home services: No Alcohol intake: current Patient Tobacco Use Status: Former Tobacco user Tobacco use type: Cigar Second Hand Smoke Exposure: No Advance Directives Date on File: 11/18/23 service: Yes Vital Signs 12/08/23 10:17 Height 5 ft 5 in Weight 143 lb BMI 23.8 BP 150/70 H Blood Pressure Location Lt brachial Position Sitting Pulse 59 Pulse Source Pulse Oximeter Pulse Oximetry (%) 97 Oxygen Delivery Method Room Air Physical Exam Vital Signs: Last Vital Signs Pulse 59 12/08/23 10:17 BP 154/60 H 12/08/23 10:17 Pulse Ox 97 12/08/23 10:17 Oxygen Delivery Method Room Air 12/08/23 10:17 BMI result Body Mass Index 23.8 Const General: comfortable and no acute distress Orientation/consciousness: patient oriented x3 HEENT Head: Yes normocephalic Mouth: Normal oral and palatal mucosa present Eyes EOM: EOMs intact bilaterally Neck Neck: Yes supple Resp Auscultation: clear to auscultation bilaterally Cardio Jugular venous distension: no JVD Rate: regular rate GI Palpation (GI): Soft to palpation Auscultation: normal bowel sounds General: Yes no CVA tenderness Back/Spine/Pelvis Back: no CVA tenderness Skin General skin exam: no rashes or lesions noted Neuro General: patient oriented x3 and moves all extremities Extrem General: Yes no pedal edema Assessment & Plan Assessment & Plan (1) CKD (chronic kidney disease) stage 3, GFR 30-59 ml/min: Code(s): N18.30 - Chronic kidney disease, stage 3 unspecified Qualifiers: Chronic kidney disease stage 3 subtype: stage 3b (GFR 30-44) Qualified Code(s): N18.32 - Chronic kidney disease, stage 3b (2) Hypertension: Code(s): I10 - Essential (primary) hypertension Qualifiers: Hypertension type: primary hypertension Qualified Code(s): I10 - Essential (primary) hypertension Plan Mr. Gary had mild tubular injury which has resolved. He has stage chronic kidney disease 3 at baseline. His renal functions had steadily improving after holding lisinopril and hydrochlorothiazide. I shall reintroduce low-dose of ANH-inhibitor, with time if his renal functions and serum potassium permits. In the interim I increased his amlodipine to 5 mg daily to maintain his blood pressure at goal. His volume status is optimal. Urology colleagues are following him up. Follow-up blood work ordered follow-up appointment given .Answered all question Orders: Orders Creatinine 12/08/23 I10 - Essential (primary) hypertension, N18.30 - Chronic kidney disease, stage 3 unspecified Complete Blood Count Auto Diff 12/08/23 I10 - Essential (primary) hypertension, N18.30 - Chronic kidney disease, stage 3 unspecified Electrolytes 12/08/23 I10 - Essential (primary) hypertension, N18.30 - Chronic kidney disease, stage 3 unspecified Calcium 12/08/23 I10 - Essential (primary) hypertension, N18.30 - Chronic kidney disease, stage 3 unspecified Blood Urea Nitrogen 12/08/23 I10 - Essential (primary) hypertension, N18.30 - Chronic kidney disease, stage 3 unspecified Medications: Changed From amlodipine (Norvasc) 2.5 mg PO DAILY 90 tabs 0RF To amlodipine (Norvasc) 5 mg (2 x 2.5 mg) PO DAILY 90 days 180 tabs 4RF Coding Level of Care Code Est Pt Level 4 (79297) Diagnoses Stage 3b chronic kidney disease N18.32 Chronic kidney disease stage 3 subtype: stage 3b (GFR 30-44) Primary hypertension I10 Hypertension type: primary hypertension Results Reviewed Nephrology Results: Hgb 13.1 g/dl (14.0-18.0) L 12/08/23 WBC 7.7 X10*3/uL (4.8-10.8) 12/08/23 Plt Count 299 X10*3/uL (160-400) 12/08/23 Sodium 142 mmol/L (135-145) 12/08/23 Potassium 4.0 mmol/L (3.3-5.1) 12/08/23 Chloride 107 mmol/L (96-108) 12/08/23 Carbon Dioxide 27 mmol/L (22-29) 12/08/23 BUN 16 mg/dL (9-16) 12/08/23 Creatinine 1.42 mg/dL (0.5-1.4) H 12/08/23 Calcium 9.0 mg/dL (8.4-10.2) 12/08/23 Urine Protein 30 (1+) mg/dL (Neg-Trace) H 11/28/23 Renal US 11/29/23
[2023-12-08 10:17] VITALS: BP 150/70; PULSE 59; O2SAT 97; BMI 23.8
== END 2023-12-08 10:58 | disposition home or self-care (01) ==
PROVIDERS: PCP Internal Medicine; Visit Provider Internal Medicine Nephrology
DX: N18.32 Chronic kidney disease, stage 3b (principal); I10 Essential (primary) hypertension
CPT/HCPCS: 99214

== ENCOUNTER 2023-12-08 10:14 | Outpatient (REF) | payer MEDICARE, MEDICAID, SELFPAY ==
[2023-12-08 14:05] LABS: MANUAL DIFF FLAG NO
[2023-12-08 14:43] LABS: Basophils Percent Auto 0.5 % (0-2); Eosinophils Absolute Auto 0.2 X10*3/uL (0.0-0.4); Hematocrit 39.1 % (42.0-52.0); Hemoglobin 13.1 g/dl (14.0-18.0); Imm Gran Abs Auto 0.03 X10*3/uL (0.00-0.03); Imm Gran Pct Auto 0.4 % (0.0-0.4); Lymphocytes Percent Auto 13.6 % (20-40); Mean Corpuscular HGB Conc 33.5 g/dl (31.0-36.0); Mean Corpuscular Hemoglobin 29.7 pg (27.0-33.0); Mean Corpuscular Volume 88.7 fL (80.0-98.0); Mean Platelet Volume 9.9 fL (9.4-12.4); Monocytes Absolute Auto 0.7 X10*3/uL (0.1-1.2); Monocytes Percent Auto 8.6 % (2-11); Neutrophils Absolute Auto 5.7 x10*3/uL (2.0-8.3); Neutrophils Percent Auto 73.9 % (45-73); Platelet Count 299 X10*3/uL (160-400); Red Blood Count 4.41 X10*6/uL (4.60-5.80); White Blood Count 7.7 X10*3/uL (4.8-10.8)
[2023-12-08 15:35] LABS: Anion Gap 12 (12-20); Blood Urea Nitrogen 16 mg/dL (9-16); Carbon Dioxide 27 mmol/L (22-29); Chloride 107 mmol/L (96-108); Estimated Glomerular Filt Rate 47; Glucose Random 102 mg/dL (60-115); Sodium 142 mmol/L (135-145)
== END 2023-12-08 10:15 | disposition home or self-care (01) ==
LOC: HO.LAB 10:14
PROVIDERS: PCP Internal Medicine; Referring Provider Internal Medicine; Visit Provider Internal Medicine Nephrology
DX: I12.9 Hypertensive chronic kidney disease with stage 1 through stage 4 chronic kidney disease, or unspecified chronic kidney disease (principal); N18.32 Chronic kidney disease, stage 3b; N17.9 Acute kidney failure, unspecified
CPT/HCPCS: 36415; 80048; 85025; 99212

== ENCOUNTER 2023-12-09 11:57 | Outpatient (REF) | payer MEDICARE, MEDICAID, SELFPAY ==
[2023-12-09 12:18] LABS: Appearance Urine Clear; Color Urine Yellow; Glucose Urine UA Negative (Negative); Leukocyte Esterase Urine Moderate (2+) (Negative); Nitrite Urine Negative (Negative); PH 5.5 (5.0-9.0); Specific Gravity - Urine 1.015 (1.005-1.025); UMIC TRIGGER UACC YES; Urine Blood Negative (Negative); Urine Ketones Negative (Negative); Urine Protein 30 (1+) mg/dL (Neg-Trace)
[2023-12-09 12:25] LABS: Bacteria Urine None Seen (None Seen); Hyaline Casts Urine 0-2 /LPF (0-2); RBC Urine 0-2 /HPF (0-2); Squamous Epithelial Cell Urine 0-2 /HPF (0-2); UACC Culture Trigger YES; WBC Urine >50 /HPF (0-5)
== END 2023-12-09 11:58 | disposition home or self-care (01) ==
LOC: HO.LNP 11:57
PROVIDERS: Visit Provider Internal Medicine
DX: I12.9 Hypertensive chronic kidney disease with stage 1 through stage 4 chronic kidney disease, or unspecified chronic kidney disease (principal); N18.9 Chronic kidney disease, unspecified; N17.9 Acute kidney failure, unspecified
CPT/HCPCS: 81001; 87086

== ENCOUNTER 2024-01-31 10:09 | Outpatient (REF) | payer MEDICARE, MEDICAID, SELFPAY ==
[2024-01-31 10:35] LABS: MANUAL DIFF FLAG NO
[2024-01-31 11:29] LABS: Basophils Absolute Auto 0.1 X10*3/uL (0.0-0.2); Eosinophils Absolute Auto 0.3 X10*3/uL (0.0-0.4); Eosinophils Percent Auto 3.8 % (0-4); Hematocrit 46.8 % (42.0-52.0); Hemoglobin 15.5 g/dl (14.0-18.0); Imm Gran Abs Auto 0.09 X10*3/uL (0.00-0.03); Imm Gran Pct Auto 1.1 % (0.0-0.4); Lymphocytes Absolute Auto 1.1 X10*3/uL (1.2-4.9); Lymphocytes Percent Auto 13.5 % (20-40); Mean Corpuscular HGB Conc 33.1 g/dl (31.0-36.0); Mean Corpuscular Hemoglobin 29.7 pg (27.0-33.0); Mean Corpuscular Volume 89.7 fL (80.0-98.0); Mean Platelet Volume 10.1 fL (9.4-12.4); Monocytes Absolute Auto 0.7 X10*3/uL (0.1-1.2); Monocytes Percent Auto 8.8 % (2-11); Neutrophils Absolute Auto 5.9 x10*3/uL (2.0-8.3); Neutrophils Percent Auto 71.8 % (45-73); Platelet Count 242 X10*3/uL (160-400); Red Blood Count 5.22 X10*6/uL (4.60-5.80); Red Cell Distribution Width 13.8 % (11.0-16.0); White Blood Count 8.2 X10*3/uL (4.8-10.8)
[2024-01-31 11:38] LABS: Estimated Average Glucose 120 mg/dL; Hemoglobin A1c % 5.8 % (<6.0)
[2024-01-31 12:00] LABS: Alanine Aminotransferase 22 U/L (0-40); Albumin Level 4.3 g/dL (3.5-5.0); Alkaline Phosphatase 91 U/L (39-117); Anion Gap 13 (12-20); Aspartate Amino Transferase 19 U/L (5-37); Bilirubin Total 0.6 mg/dL (0.0-1.0); Blood Urea Nitrogen 22 mg/dL (9-16); Calcium 9.8 mg/dL (8.4-10.2); Carbon Dioxide 30 mmol/L (22-29); Chloride 106 mmol/L (96-108); Estimated Glomerular Filt Rate 50; Glucose Random 111 mg/dL (60-115); Potassium 4.2 mmol/L (3.3-5.1); Sodium 145 mmol/L (135-145); Total Protein 7.3 g/dL (6.5-8.0)
[2024-01-31 12:24] LABS: Creatinine Urine 118.99 mg/dL; Microalbum/Creatinine Ratio Ur 8.4 ug/mg cr (<30)
== END 2024-01-31 10:10 | disposition home or self-care (01) ==
LOC: HO.LAB 10:09
PROVIDERS: PCP Internal Medicine; Visit Provider Internal Medicine
DX: I25.10 Atherosclerotic heart disease of native coronary artery without angina pectoris (principal); E11.22 Type 2 diabetes mellitus with diabetic chronic kidney disease; I12.9 Hypertensive chronic kidney disease with stage 1 through stage 4 chronic kidney disease, or unspecified chronic kidney disease; N18.9 Chronic kidney disease, unspecified
CPT/HCPCS: 36415; 80053; 82043; 82570; 83036; 85025

== ENCOUNTER 2024-03-02 09:06 | Outpatient (REF) | payer MEDICARE, MEDICAID, SELFPAY ==
[2024-03-02 16:00] LABS: Urine Cytology See Pathology rpt
== END 2024-03-02 09:07 | disposition home or self-care (01) ==
LOC: HO.LAB 09:06
PROVIDERS: PCP Internal Medicine; Visit Provider Urology
DX: C67.9 Malignant neoplasm of bladder, unspecified (principal); N18.32 Chronic kidney disease, stage 3b; N40.1 Benign prostatic hyperplasia with lower urinary tract symptoms
CPT/HCPCS: 52000; 81003; 88112; 99212

== ENCOUNTER 2024-03-02 09:06 | Outpatient (AMB) | payer MEDICARE, MEDICAID, SELFPAY ==
--- NOTE | 2024-03-02 09:45 | A.OFFVIS_ITS ---
Intake Visit Reasons: cysto Intake Note: Patient presents today for a CYSTOSCOPY Procedure: Meds: None Allergies to Antibiotic: No Known Allergies Blood Thinner: None Urinalysis test clear for Cysto? Disposable Uro-G HD Cystoscope Cannula: Lot: [id number] Exp: 11/02/2026 Allergies alfuzosin Allergy (Mild, Verified 02/09/24 10:36) Vomiting Medication List - Last Reconciled 03/02/24 by Veena Yun MD allopurinol 100 mg PO DAILY amlodipine (Norvasc) 5 mg (2 x 2.5 mg) PO DAILY 90 days atorvastatin (Lipitor) 20 mg PO DAILY finasteride (Proscar) 5 mg PO DAILY 90 days metoprolol succinate ER (Toprol XL) 25 mg PO DAILY tamsulosin 0.4 mg PO BEDTIME 30 days HPI Comments Details: Buck is an 88-year-old male who presents today for a follow-up surveillance office cystoscopy. Diagnosed with bladder cancer status post TURBT 11/16/2023, low-grade urothelial carcinoma noninvasive. Followed for BPH on finasteride and tamsulosin. He was initially started on alfuzosin but had vomiting and upset stomach. Followed by nephrology for chronic kidney disease. Office cystoscopy-recurrent papillary bladder tumor </= 2 cm posterior wall, erythematous flattened changes right lateral wall. Will send urine for cytology. Plan discussed repeat cysto TURBT and bladder biopsies. Preop labs chemistry, CBC, EKG, stop aspirin 10 days. Review of chart: 12/02/23--status post cystoscopy TURBT- 11/16/2023--the patient is here with his family and I reviewed the pathology results low-grade urothelial carcinoma noninvasive muscularis propria was not the specimen. The patient presented to the emergency room after discharge due to calf pain and was ruled out for DVT but noted to have acute kidney injury he was hydrated and had medication adjustments with improvement in his kidney function. He was discharged on alfuzosin. He states he is voiding well except for increased urinary urgency every 1-1/2 hours. Bladder scan PVR 33 mL. Plan: Finasteride, alfuzosin, Surveillance cystoscopy every 3 months 09/22/2023 Cystocpy procedure performed. Cystoscopy findings: office cystoscopy noted a papillary bladder tumor in the right lateral wall which is suspicious appearing. 09/16/23--CT findings -no acute findings in the urinary tract noted on study. 03/02 2024-repeat cysto TURBT and bladder biopsies. Preop labs chemistry, CBC, EKG, stop aspirin 10 days. [facility] Medical History CKD (chronic kidney disease) stage 3, GFR 30-59 ml/min Hyperlipidemia Gout Essential hypertension Diabetes Chronic renal disease Chronic renal insufficiency CAD (coronary artery disease) History of hematuria Surgical History Hx of CABG FH: cholecystectomy Hx of hernia repair History of quadruple bypass Family History Sister Bipolar 1 disorder Mother Cancer Social History Household Members: None Housing: Apartment Do you presently have visiting nurse or other home services: No Alcohol intake: current Patient Tobacco Use Status: Former Tobacco user Tobacco use type: Cigar Second Hand Smoke Exposure: No Advance Directives Date on File: 11/18/23 service: Yes Review of Systems Const All systems reviewed & are unremarkable except as noted in HPI and below Reports no additional complaints Eyes Reports no additional complaints ENT Reports no additional complaints Card Reports no additional complaints Resp Reports no additional complaints GI Reports no additional complaints Reports as per HPI Musc Reports no additional complaints Skin/Breast Reports system reviewed and no additional complaints, except as documented Neuro Reports no additional complaints Psych Reports no additional complaints Endo Reports no additional complaints Dell/Lymph Reports no additional complaints Aller/Immun Reports no additional complaints Office Procedures Cystoscopy Consent Discussed risk and benefit or proposed procedure with the patient. Information consent for procedure given to the patient. Discussed technical aspects, risks, benefits and alternatives in full. Addressed all of the patient's questions and concerns regarding the procedure. The patient demonstrated knowledge and understanding. They wish to proceed with this procedure. Preparation The patient was prepped in the usual manner. A manager helpdesk was present and in the room. Genitalia was prepped with betadine solution in a sterile manner. Lidocaine Jelly 2% was placed into the urethra and 16Fr flexible Olympus cystoscope was inserted into the meatus after adequate lubrication. Time out per protocol performed. Bladder Inspection Bladder Inspection: The bladder was inspected in its entirety with utilization retroflexion displaying: Tumor(s): Papillary bladder tumor posterior wall less than or equal to 2 cm, Trabeculation: Moderate to significant with cellule changes, multifocal small diverticula Mucosal Erthema: Presence Orifices: normal shape and position Urethra: normal Cystoscopy findings: prostatic urethra trilobar enlargement, bulbous [place]. [id number] DISPOSABLE SCOPE URO-G FLEXIBLE SCOPE Procedure code (CPT) selection complete Office Meds lidocaine HCl 2 % mucosal jelly in applicator Performing Provider: Veena Yun MD Performing Location: [facility] [place] [facility] Administered by: Sudhir Shearer LPN on 03/02/24 09:49 Dose Route Admin Location Dispensed Lot Number Expiration Date [facility] [employer] Moving Technician 10 mL intra-urethral 20 mL naproxen 500 mg tablet Performing Provider: Veena Yun MD Performing Location: [facility] [place] [facility] Administered by: Sudhir Shearer LPN on 03/02/24 09:49 Dose Route Admin Location Dispensed Lot Number Expiration Date [place] [employer] Moving [employer] 500 mg PO 1 tab ciprofloxacin HCl 500 mg tablet Performing Provider: Veena Yun MD Performing Location: [facility] [place] [facility] Administered by: Sudhir Shearer LPN on 03/02/24 09:49 Dose Route Admin Location Dispensed Lot Number Expiration Date [place] [employer] Moving [employer]ician 500 mg PO 1 tab Results AMB Urinalysis, Automated UA Leukoctes 0 Zoey/uL Last Edit by FELI Tellez on 03/02/24 10:12 UA Nitrite Negative Last Edit by FELI Tellez on 03/02/24 10:12 UA Urobilinogen 0.2 mg/dL Last Edit by FELI Tellez on 03/02/24 10:1 2 UA Protein 15 mg/dL Last Edit by FELI Tellez on 03/02/24 10:12 UA pH 6.0 Last Edit by FELI Tellez on 03/02/24 10:12 UA Blood 200 Catarino/uL Last Edit by FELI Tellez on 03/02/24 10:12 3+ Juan David Downs 03/02/24 10:12 UA Specific Sherwood 1.030 Last Edit by FELI Tellez on 03/02/24 10: 12 UA Ketone Negative Last Edit by FELI Tellez on 03/02/24 10:12 UA Bilirubin 0 mg/dL Last Edit by FELI Tellez on 03/02/24 10:12 UA Glucose 0 mg/dL Last Edit by FELI Tellez on 03/02/24 10:12 Results Reviewed Results Reviewed: Laboratory Last Values Urine pH (Auto) 6.0 03/02/24 10:04 Specific Sherwood (Auto) 1.030 03/02/24 10:04 Urine Protein (Auto) 15 mg/dL 03/02/24 10:04 Glucose (UA)(Auto) 0 mg/dL 03/02/24 10:04 Urine Ketones (Auto) Negative 03/02/24 10:04 Urine Blood (Auto) 200 Catarino/uL 03/02/24 10:04 Urine Nitrite (Auto) Negative 03/02/24 10:04 Urine Bilirubin (Auto) 0 mg/dL 03/02/24 10:04 Urine Urobilinogen (Auto) 0.2 mg/dL 03/02/24 10:04 Leukocyte Esterase (Auto) 0 Zoey/uL 03/02/24 10:04 Collected: 11/16/23 Location: [facility] Received: 11/16/23 Diagnosis A. Bladder, left lateral wall, biopsy: Mildly inflamed and congested urothelial mucosa; muscularis propria present; negative for malignancy. B. Bladder, posterior wall, biopsy: Mildly inflamed and congested urothelial mucosa; muscularis propria present; negative for malignancy. C. Bladder, right, transurethral resection: - Low-grade papillary urothelial carcinoma, non-invasive. - Muscularis propria present. Bladder, transurethral resection/biopsy Procedure: Transurethral resection Tumor site: Right Histologic type: Papillary carcinoma Histologic grade: Low grade Muscularis propria: Present Extent of invasion: Non-invasive Lymphovascular invasion: Not identified Clinical History Neoplasm of bladder Microscopic Description A-C. Microscopic sections reviewed. Material Received A. Left lateral wall bladder bx B. Posterior wall bladder bx C. Bladder tumor, right Gross Description Received in 3 parts. Part A: Received in formalin, on Telfa, labeled ?left lateral wall bladder bx? are 2 pink-red irregular tissue fragments each measuring 0.2 cm, submitted in toto in a cassette labeled A. Date of Service: 09/16/23 EXAMINATION: CT ABDOMEN AND PELVIS WITHOUT CONTRAST CLINICAL INFORMATION: 88-year-old male with hematuria COMPARISON: 12/02/2016 FINDINGS: LUNG BASES: The visualized lung bases are unremarkable. LIVER, GALLBLADDER, AND BILIARY TREE: The liver is normal in size, shape, and attenuation. No focal hepatic lesion or biliary ductal dilatation is present. Gallbladder is not seen most likely surgically absent. PANCREAS: Unremarkable. SPLEEN: Unremarkable. ADRENAL GLANDS: Unremarkable. KIDNEYS AND URETERS: The kidneys are normal in size, shape, and attenuation. No hydronephrosis, hydroureter, or calculi seen. No perinephric stranding. BLADDER: Unremarkable. GASTROINTESTINAL TRACT: The small and large bowel are unremarkable. The appendix is unremarkable. ABDOMINAL WALL: No significant hernia is appreciated. LYMPH NODES: Normal. VASCULAR: Mild atherosclerotic calcifications seen in the abdominal aorta of normal caliber PELVIC VISCERA: Unremarkable. OSSEOUS STRUCTURES: Unremarkable. IMPRESSION: No explanation for hematuria. Status post cholecystectomy. Assessment & Plan Assessment & Plan (1) Bladder cancer: Code(s): C67.9 - Malignant neoplasm of bladder, unspecified Category: Medical (2) CKD (chronic kidney disease) stage 3, GFR 30-59 ml/min: Code(s): N18.30 - Chronic kidney disease, stage 3 unspecified Category: Medical Qualifiers: Chronic kidney disease stage 3 subtype: stage 3b (GFR 30-44) Qualified Code(s): N18.32 - Chronic kidney disease, stage 3b (3) BPH loc w urin obs/LUTS: Code(s): N40.1 - Benign prostatic hyperplasia with lower urinary tract symptoms Category: Medical Plan Urine for cytology, repeat cysto TURBT and bladder biopsies. Preop labs chemistry, CBC, EKG, stop aspirin 10 days. Orders: Orders AMB Urinalysis Automated Today Z13.9 - Encounter for screening, unspecified Basic Metabolic Panel Today Complete Blood Count Auto Diff Today AMB Cystoscopy Today C67.9 - Malignant neoplasm of bladder, unspecified, D49.4 - Neoplasm of unspecified behavior of bladder, N30.00 - Acute cystitis without hematuria, N40.1 - Benign prostatic hyperplasia with lower urinary tract symptoms, R31.9 - Hematuria, unspecified, R82.89 - Other abnormal findings on cytological and histological examination of urine ECG 12 lead EKG Today Patient Instructions: The patient had an opportunity to ask questions regarding treatment plan. The patient expressed understanding and agreement with the above treatment plan. The patient is aware they should contact our office by phone for worsening of their current condition or the appearance of new symptoms. Compliance is encouraged with any medications and followup testing that is ordered. It is a privilege to be allowed the opportunity to participate in the urologic care of your patient. If you have any questions or concerns regarding treatment for the above conditions please do not hesitate to contact me. The office t elephone contact is [phone]. This note is constructed in part using voice recognition software. While every effort has been made to ensure accuracy die hardener errors may have been included. Yours sincerely, Veena Yun MD Coding Level of Care Code Est Pt Level 4 (79716) Complex EM visit Add On G2211 Diagnoses Bladder cancer C67.9 Stage 3b chronic kidney disease N18.32 Chronic kidney disease stage 3 subtype: stage 3b (GFR 30-44) BPH loc w urin obs/LUTS N40.1 CPT Codes Cystoscopy - CPT: [id number] ([id number])
== END 2024-03-02 10:51 | disposition home or self-care (01) ==
PROVIDERS: PCP Internal Medicine; Visit Provider Urology
DX: C67.9 Malignant neoplasm of bladder, unspecified (principal); N30.00 Acute cystitis without hematuria; N40.1 Benign prostatic hyperplasia with lower urinary tract symptoms; N18.32 Chronic kidney disease, stage 3b; D49.4 Neoplasm of unspecified behavior of bladder; Z13.9 Encounter for screening, unspecified
CPT/HCPCS: 52000; 99214

== ENCOUNTER 2024-03-07 09:35 | Outpatient (REF) | payer MEDICARE, MEDICAID, SELFPAY ==
[2024-03-07 10:52] LABS: MANUAL DIFF FLAG NO
[2024-03-07 11:09] LABS: Basophils Absolute Auto 0.1 X10*3/uL (0.0-0.2); Basophils Percent Auto 0.9 % (0-2); Eosinophils Absolute Auto 0.2 X10*3/uL (0.0-0.4); Eosinophils Percent Auto 3.7 % (0-4); Hematocrit 46.4 % (42.0-52.0); Hemoglobin 15.8 g/dl (14.0-18.0); Imm Gran Abs Auto 0.03 X10*3/uL (0.00-0.03); Imm Gran Pct Auto 0.5 % (0.0-0.4); Lymphocytes Percent Auto 14.9 % (20-40); Mean Corpuscular HGB Conc 34.1 g/dl (31.0-36.0); Mean Corpuscular Hemoglobin 30.2 pg (27.0-33.0); Mean Corpuscular Volume 88.5 fL (80.0-98.0); Mean Platelet Volume 10.2 fL (9.4-12.4); Monocytes Absolute Auto 0.6 X10*3/uL (0.1-1.2); Monocytes Percent Auto 8.9 % (2-11); Neutrophils Absolute Auto 4.6 x10*3/uL (2.0-8.3); Neutrophils Percent Auto 71.1 % (45-73); Platelet Count 220 X10*3/uL (160-400); Red Blood Count 5.24 X10*6/uL (4.60-5.80); Red Cell Distribution Width 13.2 % (11.0-16.0); White Blood Count 6.5 X10*3/uL (4.8-10.8)
[2024-03-07 11:51] LABS: Anion Gap 16 (12-20); Blood Urea Nitrogen 21 mg/dL (9-16); Calcium 9.8 mg/dL (8.4-10.2); Carbon Dioxide 27 mmol/L (22-29); Chloride 106 mmol/L (96-108); Estimated Glomerular Filt Rate 49; Potassium 4.6 mmol/L (3.3-5.1); Sodium 144 mmol/L (135-145)
== END 2024-03-07 09:36 | disposition home or self-care (01) ==
LOC: HO.10HDL 09:35
PROVIDERS: Visit Provider Internal Medicine Nephrology
DX: I12.9 Hypertensive chronic kidney disease with stage 1 through stage 4 chronic kidney disease, or unspecified chronic kidney disease (principal); N18.30 Chronic kidney disease, stage 3 unspecified
CPT/HCPCS: 36415; 80051; 82310; 82565; 84520; 85025

== ENCOUNTER 2024-03-08 10:23 | Outpatient (AMB) | payer MEDICARE, MEDICAID, SELFPAY ==
--- NOTE | 2024-03-08 10:25 | HO.NEPHOV ---
Vital Signs 03/08/24 10:26 Height 5 ft 5 in Weight 150 lb BMI 25.0 BP 120/60 Blood Pressure Location Lt brachial Position Sitting Pulse 62 Pulse Source Pulse Oximeter Pulse Oximetry (%) 96 Oxygen Delivery Method Room Air Intake Visit Reasons: CKD/ 3 MO FU/ Confirmed Religious Education Teacher Required: No Accompanied by: Self / Same As Patient Allergies alfuzosin Allergy (Mild, Verified 03/08/24 10:27) Vomiting HPI Comments Details: 88 years old man with CKD stage 3 at baseline, as well as hypertension hypertension on HCTZ + lisinopril who recently presented to the emergency department complaining of multiple events of left leg crampy pain. He recently underwent a cystoscopy with transurethral resection of bladder tumor (fulguration, random bladder biopsies; November 16) by Dr. Mahajan. A indwelling urinary catheter was placed after this procedure. He does complain of occasional urinary pain for which he had been taking Pyridium. He denied any chest pain, shortness on breath, abdominal pain, nausea or vomiting. He also denied diarrhea what mentioned that in occasions he have soft stools. There is no fever or chills reported. He does not have history of alcohol abuse or illicit drug use. Patient feels that he has been drinking enough water daily. His initial creatinine went up to 2.41 recently. (his creatine was 1.5 on 11-04-2023). He was admitted for further management. Just with holding HCTZ and lisinopril and with supportive care, his serum creatinine had settled to baseline prior to hospital discharge. He also has a follow-up with his urologist for bladder tumor removal. He did not have any new complaints at the time of this office visit. He has history of CABG but denies any chest pain, palpitation, shortness of breath, proximal nocturnal dyspnea, orthopnea, pedal edema. He is compliant with his medications and otherwise feels well [facility] Medical History CKD (chronic kidney disease) stage 3, GFR 30-59 ml/min Hyperlipidemia Gout Essential hypertension Diabetes Chronic renal disease Chronic renal insufficiency CAD (coronary artery disease) History of hematuria Surgical History Hx of CABG FH: cholecystectomy Hx of hernia repair History of quadruple bypass Family History Sister Bipolar 1 disorder Mother Cancer Social History Household Members: None Housing: Apartment Do you presently have visiting nurse or other home services: No Alcohol intake: current Patient Tobacco Use Status: Former Tobacco user Tobacco use type: Cigar Second Hand Smoke Exposure: No Advance Directives Date on File: 11/18/23 service: Yes Physical Exam Vital Signs: Last Vital Signs Pulse 62 03/08/24 10:26 BP 168/58 H 03/08/24 10:26 Pulse Ox 96 03/08/24 10:26 Oxygen Delivery Method Room Air 03/08/24 10:26 BMI result Body Mass Index 25.0 Const General: comfortable and no acute distress Orientation/consciousness: patient oriented x3 HEENT Head: Yes normocephalic Mouth: Normal oral and palatal mucosa present Eyes EOM: EOMs intact bilaterally Neck Neck: Yes supple Resp Auscultation: clear to auscultation bilaterally Cardio Jugular venous distension: no JVD Rate: regular rate GI Palpation (GI): Soft to palpation Auscultation: normal bowel sounds General: Yes no CVA tenderness Back/Spine/Pelvis Back: no CVA tenderness Skin General skin exam: no rashes or lesions noted Neuro General: patient oriented x3 and moves all extremities Extrem General: Yes no pedal edema Results Reviewed Nephrology Results: Hgb 15.8 g/dl (14.0-18.0) 03/07/24 WBC 6.5 X10*3/uL (4.8-10.8) 03/07/24 Plt Count 220 X10*3/uL (160-400) 03/07/24 Sodium 144 mmol/L (135-145) 03/07/24 Potassium 4.6 mmol/L (3.3-5.1) 03/07/24 Chloride 106 mmol/L (96-108) 03/07/24 Carbon Dioxide 27 mmol/L (22-29) 03/07/24 BUN 21 mg/dL (9-16) H 03/07/24 Creatinine 1.38 mg/dL (0.5-1.4) 03/07/24 Calcium 9.8 mg/dL (8.4-10.2) 03/07/24 Urine Protein 30 (1+) mg/dL (Neg-Trace) H 12/09/23 Urine Creatinine 118.99 mg/dL 01/31/24 Renal US 11/29/23 Assessment & Plan Assessment & Plan (1) Hypertension: Code(s): I10 - Essential (primary) hypertension Category: Medical Qualifiers: Hypertension type: primary hypertension Qualified Code(s): I10 - Essential (primary) hypertension (2) CKD (chronic kidney disease) stage 3, GFR 30-59 ml/min: Code(s): N18.30 - Chronic kidney disease, stage 3 unspecified Category: Medical Qualifiers: Chronic kidney disease stage 3 subtype: stage 3b (GFR 30-44) Qualified Code(s): N18.32 - Chronic kidney disease, stage 3b Plan Mr. Gary had mild tubular injury which has resolved. He has stage chronic kidney disease 3 at baseline. His renal functions had improved to baseline after holding lisinopril and hydrochlorothiazide. I shall reintroduce low-dose of ANH-inhibitor, with time if his renal functions and serum potassium permits. C/W amlodipine 5 mg daily to maintain his blood pressure at goal. His volume status is optimal. Urology colleagues are following him up. Follow-up blood work ordered follow-up appointment given .Answered all question Orders: Orders Creatinine Today I10 - Essential (primary) hypertension Blood Urea Nitrogen Today I10 - Essential (primary) hypertension Electrolytes Today I10 - Essential (primary) hypertension Medications: Refilled amlodipine (Norvasc) 5 mg (2 x 2.5 mg) PO DAILY 90 days 180 tabs 4RF Coding Level of Care Code Est Pt Level 4 (35953) Diagnoses Primary hypertension I10 Hypertension type: primary hypertension Stage 3b chronic kidney disease N18.32 Chronic kidney disease stage 3 subtype: stage 3b (GFR 30-44)
[2024-03-08 10:26] VITALS: BP 120/60; PULSE 62; O2SAT 96; BMI 25.0
== END 2024-03-08 10:47 | disposition home or self-care (01) ==
PROVIDERS: PCP Internal Medicine; Visit Provider Internal Medicine Nephrology
DX: I10 Essential (primary) hypertension (principal); N18.32 Chronic kidney disease, stage 3b
CPT/HCPCS: 99214

== ENCOUNTER → 2024-03-08 10:23 | Outpatient (BNVA) | payer MEDICARE, MEDICAID, SELFPAY | PROVIDERS: PCP Internal Medicine; Visit Provider Internal Medicine Nephrology | DX: I12.9 Hypertensive chronic kidney disease with stage 1 through stage 4 chronic kidney disease, or unspecified chronic kidney disease (principal); N18.32 Chronic kidney disease, stage 3b | CPT/HCPCS: 99212 ==

== ENCOUNTER 2024-03-21 05:51 | Day surgery (SDC) | payer MEDICARE, MEDICAID, SELFPAY ==
--- NOTE | 2024-03-10 13:20 | HP_ITS ---
DATE OF SERVICE: 03/21/2024 The patient is an 88-year-old male who was seen in the office today for preop evaluation prior to cystoscopy scheduled next week with Dr. Rao. The patient has a history of bladder cancer recently identified by biopsy. He is going to undergo further cystoscopy and treatment of the noninvasive bladder cancer. PAST MEDICAL HISTORY: Significant for coronary artery disease, hypertension, elevated cholesterol, chronic renal insufficiency, BPH, arthritis of the thumbs, history of coronary artery bypass surgery, and gout. ALLERGIES: HE HAS NO REPORTED ALLERGIES TO MEDICINES. REVIEW OF SYSTEMS: No fever, chills, or sweats. No weight changes. No headaches or dizziness. No chest pains or palpitations. No peripheral edema. No coughing, wheezing, or shortness of breath. Occasional acid reflux. No abdominal pain. No dysuria. Arthritis as mentioned in thumbs. No confusion or memory problems. Sleep and appetite are normal. No complaints of hay fever problems. No bleeding problems reported. PRESENT MEDICATIONS: Lisinopril 20 mg a day, Atorvastatin 20 mg a day, finasteride 5 mg a day, amlodipine 5 mg a day, Metoprolol-XL 25 mg daily, allopurinol 200 mg daily, and tamsulosin 0.4 mg at bedtime. EXAM: GENERAL: He is awake and alert, in no distress. VITAL SIGNS: Temperature 97.3, pulse 59, respirations 12, blood pressure 124/68, oxygen 99% on room air. Weight is 153, height is 5.3. HEENT: Clear. NECK: Supple. No lymph nodes, bruits, or masses. HEART: Sounds S1 and S2. Regular rate and rhythm. LUNGS: Clear. ABDOMEN: Soft and nontender with positive bowel sounds. EXTREMITIES: No clubbing, cyanosis, or edema. NEUROLOGIC: Cranial nerves II through XII are intact. Neurological exam is nonfocal. ASSESSMENT AND PLAN: He is medically stable for the proposed procedure. He has no reported allergies to medicines. He had a cardiogram today which shows sinus bradycardia, no ischemia and is otherwise within normal limits. He has a history of chronic renal insufficiency and will be having labs checked prior to the procedure. His blood count is stable. MD AGA Marcos/MARIANO / [id number]
--- NOTE | 2024-03-20 10:11 | P.CONAN_ITS ---
Documented by User: Mary Moreno NP 03/20/24 10:16 HPI - Anesthesia Eval Consult details Narrative: 88yo M for TUR Bladder Tumor with Bladder Biopsy PCP optimized s/p same 11/2023 with GA-LMA 4 CAD s/p CABG x 4 2001 - no further cardiology f/u. Only PCP. Pt denies CP/SOB PMFSH Active Problems Active Problems: All Active Problems Hypertension (Acute) CKD (chronic kidney disease) stage 3, GFR 30-59 ml/min (Acute) Bladder cancer (Acute) UTI (urinary tract infection) (Acute) BPH loc w urin obs/LUTS (Acute) Bladder neoplasm (Acute) Urine cytology abnormal (Acute) Hematuria (Acute) Past Medical History Medical History CKD (chronic kidney disease) stage 3, GFR 30-59 ml/min Hyperlipidemia Gout Essential hypertension Diabetes Chronic renal disease Chronic renal insufficiency CAD (coronary artery disease) History of hematuria Family History Family History Sister Bipolar 1 disorder Mother Cancer Family history of problems with anesthesia: No Surgical History Surgical History Hx of CABG FH: cholecystectomy Hx of hernia repair History of quadruple bypass History of Problems with Anesthesia: No Social History Social History Household Members: None Housing: Apartment Do you presently have visiting nurse or other home services: No Alcohol intake: current Alcohol intake frequency: holidays/special occasions only Patient Tobacco Use Status: Former Tobacco user Tobacco use type: Cigar Second Hand Smoke Exposure: No Use of substances other than those prescribed or required for medical reasons: No Are you DNR?: No Advance Directives: No Advance Directives Information Provided: Yes Advance Directives on File: No Advance Directives Date on File: 11/18/23 service: Yes Meds Allergies Allergy/AdvReac Type Severity Reaction Status Date / Time alfuzosin Allergy Mild Vomiting Verified 03/08/24 10:27 Home Medications ?Medication ?Instructions ?Recorded ?Confirmed ?Last Taken ?Type atorvastatin 20 mg tablet (Lipitor) 20 mg PO DAILY 08/18/23 03/21/24 03/21/24 History metoprolol succinate 25 mg 25 mg PO DAILY 08/18/23 03/21/24 03/21/24 History tablet,extended release 24 hr (Toprol XL) allopurinol 100 mg tablet 100 mg PO DAILY 12/08/23 03/21/24 03/21/24 History Exam Pertinent Lab Results Pertinent Lab Results: Laboratory Tests 03/07/24 09:38 WBC 6.5 Hgb 15.8 Hct 46.4 Plt Count 220 Sodium 144 Potassium 4.6 Chloride 106 Carbon Dioxide 27 BUN 21 H Creatinine 1.38 Narrative Narrative: EKG 11/2023 Vent. Rate : 063 BPM Atrial Rate : 063 BPM P-R Int : 172 ms QRS Dur : 088 ms QT Int : 408 ms P-R-T Axes : 072 -14 031 degrees QTc Int : 417 ms Normal sinus rhythm Normal ECG When compared with ECG of 12-JUL-2009 10:51, No significant change was found Assessment and Plan Assessment Anesthesia Assessment: Chart Reviewed Final Anesthetic Review Family History of Problems with Anesthesia: No History of Problems with Anesthesia: No Documented by User: Kingsley Edwards MD 03/21/24 07:14 [facility], [facility] Past Medical History Medical History CKD (chronic kidney disease) stage 3, GFR 30-59 ml/min Hyperlipidemia Gout Essential hypertension Diabetes Chronic renal disease Chronic renal insufficiency CAD (coronary artery disease) History of hematuria Family History Family History Sister Bipolar 1 disorder Mother Cancer Surgical History Surgical History Hx of CABG FH: cholecystectomy Hx of hernia repair History of quadruple bypass Social History Social History Household Members: None Housing: Apartment Do you presently have visiting nurse or other home services: No Alcohol intake: current Alcohol intake frequency: holidays/special occasions only Patient Tobacco Use Status: Former Tobacco user Tobacco use type: Cigar Second Hand Smoke Exposure: No Use of substances other than those prescribed or required for medical reasons: No Are you DNR?: No Advance Directives: No Advance Directives Information Provided: Yes Advance Directives on File: No Advance Directives Date on File: 11/18/23 service: Yes Meds Allergies Allergy/AdvReac Type Severity Reaction Status Date / Time alfuzosin Allergy Mild Vomiting Verified 03/08/24 10:27 Home Medications ?Medication ?Instructions ?Recorded ?Confirmed ?Last Taken ?Type atorvastatin 20 mg tablet (Lipitor) 20 mg PO DAILY 08/18/23 03/21/24 03/21/24 History metoprolol succinate 25 mg 25 mg PO DAILY 08/18/23 03/21/24 03/21/24 History tablet,extended release 24 hr (Toprol XL) allopurinol 100 mg tablet 100 mg PO DAILY 12/08/23 03/21/24 03/21/24 History Exam Airway Mallampati Class: II TM Dist: >3cm Neck ROM: Full Denture: Upper and Lower Loose/Missing/Broken Teeth: No Heart: rrr Lungs: cta Assessment and Plan Final Anesthetic Review NPO: Yes ASA Class: III Final Preanesthetic Review: No Changes in Pt Med Stat, Meds/Allgs Chart Reviewed, Consent Obtained/Reviewed and Anes Risks/Benef Reviewed Patient Risk: Intermediate Procedure Risk: Low Anesthetic Plan Anesthetic Plan: GA Disposition: Standard PACU
[2024-03-21 06:17] VITALS: BMI 25.4
[2024-03-21 06:18] VITALS: BMI 25.4
--- NOTE | 2024-03-21 06:21 | PC.NURSE ---
patient is diet controlled diabetes, does not take any home medications for control.
[2024-03-21 06:39] VITALS: BP 191/78; PULSE 56; RESP 16; TEMP 36.8; O2SAT 96
[2024-03-21] MEDS: Lactated Ringers 1,000 ML 100 ML IVCONT (06:40)
--- NOTE | 2024-03-21 07:22 | MHC.SHP ---
Pre-Procedural Eval Section A - 24 Hr Update-Section A only Date of Service: 03/21/24 The patient is an INPATIENT: No The patient has been examined within 24 hours of the surgical procedure. The History & Physical has been completed within 30 days and I have reviewed it.: Yes Section B - Complete if H&P > 30 days Chief Complaint: Malignant neoplasm of bladder, unspecified Allergies: Allergies Allergy/AdvReac Type Severity Reaction Status Date / Time alfuzosin Allergy Mild Vomiting Verified 03/08/24 10:27 Plan Diagnosis/Plan: Unchanged I have reviewed the history and physical and performed a pertinent physical examination on my patient. No changes have occurred unless specified. Cystoscopy transurethral resection bladder tumors, bladder biopsies, fulguration. Time Spent With Patient Time: Total time managing care of this patient today ____ minutes.
--- NOTE | 2024-03-21 08:37 | P.OP_ITS ---
Operative Note Operative Note Date of Service: 03/21/24 Narrative: PREOP DIAGNOSIS: Bladder tumors POSTOP DIAGNOSIS: Bladder tumors PROCEDURE: Cystoscopy, transurethral resection bladder tumors, fulguration, random bladder biopsies. Anesthesia: General Surgeon Dr. Mahajan Indications: Buck is an 88-year-old male status post cystoscopy TURBT on 11/16/2023 for papillary bladder tumor right side with pathology low-grade noninvasive urothelial carcinoma. On surveillance cystoscopy he was noted to have multiple small papillary lesions. Findings: Small papillary lesions 1-2 cm, right anterior bladder wall, right lateral wall near right jamir trigone, and small lesion left lateral wall. Details of procedure: The patient was brought into the operating room placed on the OR table in supine position. 1 g of Ancef IV. General anesthesia was administered. The patient was repositioned into lithotomy position, prepped and draped in the usual sterile fashion. Time-out was done per protocol. 2% urojet placed. The cystoscope was passed transurethrally into the bladder, the bladder was visualized with both the 30 degree and 70 degree lens. bladder lesions were noted right anterior bladder wall, right lateral wall near right jamir trigone and small lesion left lateral wall. Random bladder biopsies were done from the left lateral wall, posterior wall, dome. The 24 Micronesian resectoscope under direct vision was passed transurethrally into the bladder. The loop resectoscope was used to cauterize biopsied areas and used to fulgurate left lateral wall tumor. Resection of the right sided tumors were sent separately. The loop was then used to fulgurate the base of the bladder tumors. Once there was good hemostasis the resectoscope was removed. 2 % urojet placed. The patient was brought out of anesthesia and taken to recovery in stable condition. Complications: None Drains: None
[2024-03-21 08:38] VITALS: BP 172/68; PULSE 54; RESP 14; TEMP 36.1; O2SAT 98
[2024-03-21 08:43] VITALS: BP 157/64; PULSE 54; RESP 16; O2SAT 98
[2024-03-21 08:48] VITALS: BP 145/61; PULSE 54; RESP 16; O2SAT 95
[2024-03-21 08:53] VITALS: BP 159/69; PULSE 55; RESP 18; O2SAT 95
[2024-03-21] MEDS: Phenazopyridine HCL 100 MG TABLET PO (09:01)
[2024-03-21 09:08] VITALS: BP 188/75; PULSE 55; RESP 18; TEMP 36.1; O2SAT 94
== END 2024-03-21 10:02 | disposition home or self-care (01) ==
PROVIDERS: PCP Internal Medicine; Visit Provider Urology
PROC: 0TBB8ZZ Excision of Bladder, Via Natural or Artificial Opening Endoscopic (ICD-10-PCS; CPT 52234; principal; 2024-03-21 07:30)
DX: C67.2 Malignant neoplasm of lateral wall of bladder (principal); E11.22 Type 2 diabetes mellitus with diabetic chronic kidney disease; I12.9 Hypertensive chronic kidney disease with stage 1 through stage 4 chronic kidney disease, or unspecified chronic kidney disease; N18.32 Chronic kidney disease, stage 3b; N40.1 Benign prostatic hyperplasia with lower urinary tract symptoms; R31.9 Hematuria, unspecified; M10.9 Gout, unspecified; E78.5 Hyperlipidemia, unspecified; I25.10 Atherosclerotic heart disease of native coronary artery without angina pectoris; Z95.1 Presence of aortocoronary bypass graft; Z79.899 Other long term (current) drug therapy; Z90.49 Acquired absence of other specified parts of digestive tract; Z88.8 Allergy status to other drugs, medicaments and biological substances; Z87.891 Personal history of nicotine dependence
CPT/HCPCS: 52234; 52204; 88305; 88307; 88342; 88360; J0690; J1100; J2405; J2704; J3010

== ENCOUNTER → 2024-03-21 05:51 | Outpatient (BNV) | payer MEDICARE, MEDICAID, SELFPAY | PROVIDERS: PCP Internal Medicine; Visit Provider Urology | DX: C67.8 Malignant neoplasm of overlapping sites of bladder (principal) | CPT/HCPCS: 52224 ==

== ENCOUNTER 2024-04-17 08:06 | Outpatient (AMB) | payer MEDICARE, MEDICAID, SELFPAY ==
--- NOTE | 2024-04-17 08:22 | A.OFFVIS_ITS ---
Intake Visit Reasons: TURBT/Bladder bx follow up Intake Note: Patient presents today for Post Op TURBT/Bladder Biopsy: Meds: Finasteride & Tamsulosin Allergies to Antibiotic: No Known Allergies Blood Thinner: None Turner Off Required: No Accompanied by: Self / Same As Patient Allergies alfuzosin Allergy (Mild, Verified 03/08/24 10:27) Vomiting HPI Comments Details: 04/17/24--Buck is an 88-year-old male status post repeat TURBT on 03/21/2024. Small papillary tumors noted on the right lateral wall lateral to the trigone. Pathology results low-grade noninvasive urothelial carcinoma. Random bladder biopsies benign. I have discussed gemcitabine and BCG bladder installations. [facility] does not have BCG available. The patient asks excellent questions and his questions were answered. 30 minutes spent in review of records pertaining to this visit and including [id number] discussion with the patient and documentation of this visit. Review of chart: 03/02/24--Buck is an 88-year-old male who presents today for a follow-up surveillance office cystoscopy. Diagnosed with bladder cancer status post TURBT 11/16/2023, low-grade urothelial carcinoma noninvasive. Followed for BPH on finasteride and tamsulosin. He was initially started on alfuzosin but had vomiting and upset stomach. Followed by nephrology for chronic kidney disease. Office cystoscopy-recurrent papillary bladder tumor </= 2 cm posterior wall, erythematous flattened changes right lateral wall. Will send urine for cytology. Plan discussed repeat cysto TURBT and bladder biopsies. Preop labs chemistry, CBC, EKG, stop aspirin 10 days. 12/02/23--status post cystoscopy TURBT- 11/16/2023--the patient is here with his family and I reviewed the pathology results low-grade urothelial carcinoma noninvasive muscularis propria was not the specimen. The patient presented to the emergency room after discharge due to calf pain and was ruled out for DVT but noted to have acute kidney injury he was hydrated and had medication adjustments with improvement in his kidney function. He was discharged on alfuzosin. He states he is voiding well except for increased urinary urgency every 1-1/2 hours. Bladder scan PVR 33 mL. Plan: Finasteride, alfuzosin, Surveillance cystoscopy every 3 months 09/22/2023 Cystoscopy procedure performed. Cystoscopy findings: office cyst oscopy noted a papillary bladder tumor in the right lateral wall which is suspicious appearing. 09/16/23--CT findings -no acute findings in the urinary tract noted on study. [facility] Medical History CKD (chronic kidney disease) stage 3, GFR 30-59 ml/min Hyperlipidemia Gout Essential hypertension Diabetes Chronic renal disease Chronic renal insufficiency CAD (coronary artery disease) History of hematuria Surgical History Hx of CABG FH: cholecystectomy Hx of hernia repair History of quadruple bypass Family History Sister Bipolar 1 disorder Mother Cancer Social History Household Members: None Housing: Apartment Do you presently have visiting nurse or other home services: No Alcohol intake: current Alcohol intake frequency: holidays/special occasions only Patient Tobacco Use Status: Former Tobacco user Tobacco use type: Cigar Second Hand Smoke Exposure: No Advance Directives Date on File: 11/18/23 service: Yes Review of Systems Const All systems reviewed & are unremarkable except as noted in HPI and below Reports no additional complaints Eyes Reports no additional complaints ENT Reports no additional complaints Card Reports no additional complaints Resp Reports no additional complaints GI Reports no additional complaints Reports as per HPI Musc Reports no additional complaints Skin/Breast Reports system reviewed and no additional complaints, except as documented Neuro Reports no additional complaints Psych Reports no additional complaints Endo Reports no additional complaints Dell/Lymph Reports no additional complaints Aller/Immun Reports no additional complaints Results AMB Urinalysis, Automated UA Leukoctes 0 Zoey/uL Last Edit by FELI Tellez on 04/17/24 08:35 UA Nitrite Negative Last Edit by FELI Tellez on 04/17/24 08:35 UA Urobilinogen 0.2 mg/dL Last Edit by FELI Tellez on 04/17/24 08:3 5 UA Protein 15 mg/dL Last Edit by FELI Tellez on 04/17/24 08:35 UA pH 6.0 Last Edit by FELI Tellez on 04/17/24 08:35 UA Blood 200 Catarino/uL Last Edit by FELI Tellez on 04/17/24 08:35 3+ Juan David Downs 04/17/24 08:35 UA Specific [place] 1.020 Last Edit by FEIL Tellez on 04/17/24 08: 35 UA Ketone Negative Last Edit by FELI Tellez on 04/17/24 08:35 UA Bilirubin 0 mg/dL Last Edit by FELI Tellez on 04/17/24 08:35 UA Glucose 0 mg/dL Last Edit by FELI Tellez on 04/17/24 08:35 Results Reviewed Results Reviewed: Collected: 03/21/24 Location: [facility] Received: 03/21/24 Diagnosis A. Bladder, left lateral wall, biopsy: -Benign urothelium with mild chronic inflammation; muscularis propria present. B. Bladder, posterior wall, biopsy: -Benign urothelium with mild chronic inflammation and hemorrhage; no muscularis propria present. C. Bladder, right lateral wall near right trigone, tumor, transurethral resection: -Non-invasive papillary urothelial carcinoma, low-grade. -Muscularis propria present, without tumor. Bladder, transurethral resection/biopsy Procedure: Transurethral resection Tumor site: Right lateral wall near right trigone Histologic type: Papillary urothelial carcinoma, noninvasive Histologic grade: Low-grade Muscularis propria: Present Tumor extent: Noninvasive papillary carcinoma Lymphovascular invasion: Not identified D. Bladder, random dome, biopsy: -Benign urothelium; muscularis propria present. E. Bladder, right anterior wall, transurethral resection: -Papillary urothelial neoplasm of low malignant potential. -Muscularis propria present. Collected: 11/16/23 Location: [facility] Received: 11/16/23 Diagnosis A. Bladder, left lateral wall, biopsy: Mildly inflamed and congested urothelial mucosa; muscularis propria present; negative for malignancy. B. Bladder, posterior wall, biopsy: Mildly inflamed and congested urothelial mucosa; muscularis propria present; negative for malignancy. C. Bladder, right, transurethral resection: - Low-grade papillary urothelial carcinoma, non-invasive. - Muscularis propria present. Bladder, transurethral resection/biopsy Procedure: Transurethral resection Tumor site: Right Histologic type: Papillary carcinoma Histologic grade: Low grade Muscularis propria: Present Extent of invasion: Non-invasive Lymphovascular invasion: Not identified Date of Service: 09/16/23 EXAMINATION: CT ABDOMEN AND PELVIS WITHOUT CONTRAST CLINICAL INFORMATION: 88-year-old male with hematuria COMPARISON: 12/02/2016 FINDINGS: LUNG BASES: The visualized lung bases are unremarkable. LIVER, GALLBLADDER, AND BILIARY TREE: The liver is normal in size, shape, and attenuation. No focal hepatic lesion or biliary ductal dilatation is present. Gallbladder is not seen most likely surgically absent. PANCREAS: Unremarkable. SPLEEN: Unremarkable. ADRENAL GLANDS: Unremarkable. KIDNEYS AND URETERS: The kidneys are normal in size, shape, and attenuation. No hydronephrosis, hydroureter, or calculi seen. No perinephric stranding. BLADDER: Unremarkable. GASTROINTESTINAL TRACT: The small and large bowel are unremarkable. The appendix is unremarkable. ABDOMINAL WALL: No significant hernia is appreciated. LYMPH NODES: Normal. VASCULAR: Mild atherosclerotic calcifications seen in the abdominal aorta of normal caliber PELVIC VISCERA: Unremarkable. OSSEOUS STRUCTURES: Unremarkable. IMPRESSION: No explanation for hematuria. Status post cholecystectomy. Assessment & Plan Assessment & Plan (1) Bladder cancer: Code(s): C67.9 - Malignant neoplasm of bladder, unspecified Category: Medical (2) CKD (chronic kidney disease) stage 3, GFR 30-59 ml/min: Code(s): N18.30 - Chronic kidney disease, stage 3 unspecified Category: Medical Qualifiers: Chronic kidney disease stage 3 subtype: stage 3b (GFR 30-44) Qualified Code(s): N18.32 - Chronic kidney disease, stage 3b (3) BPH loc w urin obs/LUTS: Code(s): N40.1 - Benign prostatic hyperplasia with lower urinary tract symptoms Category: Medical Plan Follow-up bladder installations discussed with either gemcitabine on BCG. Orders: Orders AMB Urinalysis Automated Today Z13.9 - Encounter for screening, unspecified Medications: Refilled tamsulosin 0.4 mg PO BEDTIME 30 days 90 caps 3RF Patient Instructions: The patient had an opportunity to ask questions regarding treatment plan. The patient expressed understanding and agreement with the above treatment plan. The patient is aware they should contact our office by phone for worsening of their current condition or the appearance of new symptoms. Compliance is encouraged with any medications and followup testing that is ordered. It is a privilege to be allowed the opportunity to participate in the urologic care of your patient. If you have any questions or concerns regarding treatment for the above conditions please do not hesitate to contact me. The office telephone contact is [phone]. This note is constructed in part using voice recognition software. While every effort has been made to ensure accuracy professional model errors may have been included. Yours sincerely, Veena Yun MD Coding Level of Care Code Est Pt Level 4 (11519) Diagnoses Bladder cancer C67.9 Stage 3b chronic kidney disease N18.32 Chronic kidney disease stage 3 subtype: stage 3b (GFR 30-44) BPH loc w urin obs/LUTS N40.1
== END 2024-04-17 09:25 | disposition home or self-care (01) ==
PROVIDERS: PCP Internal Medicine; Visit Provider Urology
DX: C67.9 Malignant neoplasm of bladder, unspecified (principal); N18.32 Chronic kidney disease, stage 3b; N40.1 Benign prostatic hyperplasia with lower urinary tract symptoms; Z13.9 Encounter for screening, unspecified
CPT/HCPCS: 99214

== ENCOUNTER → 2024-04-17 08:06 | Outpatient (BNVA) | payer MEDICARE, MEDICAID, SELFPAY | PROVIDERS: PCP Internal Medicine; Visit Provider Urology | DX: N40.1 Benign prostatic hyperplasia with lower urinary tract symptoms (principal); N18.32 Chronic kidney disease, stage 3b; C67.9 Malignant neoplasm of bladder, unspecified | CPT/HCPCS: 81003; 99212 ==

== ENCOUNTER 2024-06-14 11:41 | Outpatient (REF) | payer MEDICARE, MEDICAID, SELFPAY | END 2024-06-14 11:42 | disposition home or self-care (01) | LOC: HO.LAB 11:41 | PROVIDERS: PCP Internal Medicine; Visit Provider Urology | DX: Z13.89 Encounter for screening for other disorder (principal) ==

== ENCOUNTER 2024-06-21 08:11 | Outpatient (AMB) | payer MEDICARE, MEDICAID, SELFPAY ==
--- NOTE | 2024-06-21 08:18 | A.OFFVIS_ITS ---
Intake Visit Reasons: medication for urge for treatments Intake Note: Patient is Present for Follow Up Med Review Urology Medication: Finasteride, Tamsulosin Antibiotic Allergies: None Blood Thinners: None Patient states that he is unable to do Gemcitabine treatments due to him not being able to hold medication in his bladder for more than 30 minutes patient has not tried any other bladder medications and patient has allergy to Alfuzosin. 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 Allergies alfuzosin Allergy (Mild, Verified 06/21/24 08:39) Vomiting Medication List - Last Reconciled 06/21/24 by Veena Yun MD allopurinol 100 mg PO DAILY amlodipine (Norvasc) 5 mg (2 x 2.5 mg) PO DAILY 90 days atorvastatin (Lipitor) 20 mg PO DAILY finasteride (Proscar) 5 mg PO DAILY 90 days metoprolol succinate ER (Toprol XL) 25 mg PO DAILY oxybutynin chloride ER 5 mg orally take on Wed AM and AM weekly; prior to bladder treatments phenazopyridine (Pyridium) 100 mg orally take Wed night prior to procedure; tamsulosin 0.4 mg PO BEDTIME 30 days HPI Comments Details: 06/21/24--here for follow-up. He states that he had his 1st bladder instillation of gemcitabine but was not able to keep the medication in the bladder for more than 20-30 minutes. I have discussed that we will try oxybutynin 5 mg day before the procedure day of the procedure in Pyridium 100 mg night before the procedure to see if this will decrease the bladder spasms. Review of chart: 04/17/24--Buck is an 88-year-old male status post repeat TURBT on 03/21/2024. Small papillary tumors noted on the right lateral wall lateral to the trigone. Pathology results low-grade noninvasive urothelial carcinoma. Random bladder biopsies benign. I have discussed gemcitabine and BCG bladder installations. [facility] does not have BCG available. The patient asks excellent questions and his questions were answered. 30 minutes spent in review of records pertaining to this visit and including [id number] discussion with the patient and documentation of this visit. 03/02/24--Buck is an 88-year-old male who presents today for a follow-up surveillance office cystoscopy. Diagnosed with bladder cancer status post TURBT 11/16/2023, low-grade urothelial carcinoma noninvasive. Followed for BPH on finasteride and tamsulosin. He was initially started on alfuzosin but had vomiting and upset stomach. Followed by nephrology for chronic kidney disease. Office cystoscopy-recurrent papillary bladder tumor </= 2 cm posterior wall, erythematous flattened changes right lateral wall. Will send urine for cytology. Plan discussed repeat cysto TURBT and bladder biopsies. Preop labs chemistry, CBC, EKG, stop aspirin 10 days. 12/02/23--status post cystoscopy TURBT- 11/16/2023--the patient is here with his family and I reviewed the pathology results low-grade urothelial carcinoma noninvasive muscularis propria was not the specimen. The patient presented to the emergency room after discharge due to calf pain and was ruled out for DVT but noted to have acute kidney injury he was hydrated and had medication adjustments with improvement in his kidney function. He was discharged on alfuzosin. He states he is voiding well except for increased urinary urgency every 1-1/2 hours. Bladder scan PVR 33 mL. Plan: Finasteride, alfuzosin, Surveillance cystoscopy every 3 months 09/22/2023 Cystoscopy procedure performed. Cystoscopy findings: office cystoscopy noted a papillary bladder tumor in the right lateral wall which is suspicious appearing. 09/16/23--CT findings -no acute findings in the urinary tract noted on study. [facility] Medical History CKD (chronic kidney disease) stage 3, GFR 30-59 ml/min Hyperlipidemia Gout Essential hypertension Diabetes Chronic renal disease Chronic renal insufficiency CAD (coronary artery disease) History of hematuria Surgical History Hx of CABG FH: cholecystectomy Hx of hernia repair History of quadruple bypass Family History Sister Bipolar 1 disorder Mother Cancer Social History Household Members: None Housing: Apartment Do you presently have visiting nurse or other home services: No Alcohol intake: current Alcohol intake frequency: holidays/special occasions only Patient Tobacco Use Status: Former Tobacco user Tobacco use type: Cigar Second Hand Smoke Exposure: No Advance Directives Date on File: 11/18/23 service: Yes Assessment & Plan Assessment & Plan (1) Bladder cancer: Code(s): C67.9 - Malignant neoplasm of bladder, unspecified Category: Medical (2) CKD (chronic kidney disease) stage 3, GFR 30-59 ml/min: Code(s): N18.30 - Chronic kidney disease, stage 3 unspecified Category: Medical Qualifiers: Chronic kidney disease stage 3 subtype: stage 3b (GFR 30-44) Qualified Code(s): N18.32 - Chronic kidney disease, stage 3b (3) BPH loc w urin obs/LUTS: Code(s): N40.1 - Benign prostatic hyperplasia with lower urinary tract symptoms Category: Medical Plan Follow-up bladder installations discussed with either gemcitabine on BCG. Medications: New oxybutynin chloride ER 5 mg orally take on Wed AM and AM weekly; prior to bladder treatments 30 tabs 0RF bladder spasms phenazopyridine (Pyridium) 100 mg orally take Wed night prior to procedure; 20 tabs 0RF pain Patient Instructions: The patient had an opportunity to ask questions regarding treatment plan. The patient expressed understanding and agreement with the above treatment plan. The patient is aware they should contact our office by phone for worsening of their current condition or the appearance of new symptoms. Compliance is encouraged with any medications and followup testing that is ordered. It is a privilege to be allowed the opportunity to participate in the urologic care of your patient. If you have any questions or concerns regarding treatment for the above conditions please do not hesitate to contact me. The office telephone contact is [phone]. This note is constructed in part using voice recognition software. While every effort has been made to ensure accuracy customer sales specialist errors may have been included. Yours sincerely, Veena Yun MD Coding Level of Care Code Est Pt Level 3 (10351) Diagnoses Bladder cancer C67.9 Stage 3b chronic kidney disease N18.32 Chronic kidney disease stage 3 subtype: stage 3b (GFR 30-44) BPH loc w urin obs/LUTS N40.1
== END 2024-06-21 08:58 | disposition home or self-care (01) ==
PROVIDERS: PCP Internal Medicine; Visit Provider Urology
DX: C67.9 Malignant neoplasm of bladder, unspecified (principal); N18.32 Chronic kidney disease, stage 3b; N40.1 Benign prostatic hyperplasia with lower urinary tract symptoms
CPT/HCPCS: 99213

== ENCOUNTER → 2024-06-21 08:11 | Outpatient (BNVA) | payer MEDICARE, MEDICAID, SELFPAY | PROVIDERS: PCP Internal Medicine; Visit Provider Urology | DX: N40.1 Benign prostatic hyperplasia with lower urinary tract symptoms (principal); C67.9 Malignant neoplasm of bladder, unspecified; N18.32 Chronic kidney disease, stage 3b | CPT/HCPCS: 99212 ==

== ENCOUNTER 2024-07-04 09:26 | Outpatient (REF) | payer MEDICARE, MEDICAID, SELFPAY ==
[2024-07-04 11:21] LABS: Anion Gap 13 (12-20); Blood Urea Nitrogen 18 mg/dL (9-16); Carbon Dioxide 28 mmol/L (22-29); Chloride 103 mmol/L (96-108); Estimated Glomerular Filt Rate 46; Potassium 4.1 mmol/L (3.3-5.1); Sodium 140 mmol/L (135-145)
== END 2024-07-04 09:27 | disposition home or self-care (01) ==
LOC: HO.10HDL 09:26
PROVIDERS: Visit Provider Internal Medicine Nephrology
DX: I10 Essential (primary) hypertension (principal)
CPT/HCPCS: 36415; 80051; 82565; 84520

== ENCOUNTER 2024-07-05 09:34 | Outpatient (AMB) | payer MEDICARE, MEDICAID, SELFPAY ==
--- NOTE | 2024-07-05 09:54 | HO.NEPHOV ---
Vital Signs 07/05/24 09:55 Height 5 ft 5 in Weight 152 lb 2 oz BMI 25.3 BP 130/70 Blood Pressure Location Lt brachial Position Sitting Pulse 55 Pulse Source Pulse Oximeter Pulse Oximetry (%) 98 Oxygen Delivery Method Room Air Intake Visit Reasons: CKD / 4 MO FU- Conf Allergies alfuzosin Allergy (Mild, Verified 06/21/24 08:39) Vomiting HPI Comments Details: 88 years old man with CKD stage 3 at baseline. He had transurethral resection of bladder tumor by Dr. Mahajan. He undergoes treatment by Urology. He did not have any new complaints at the time of this office visit. He has history of CABG but denies any chest pain, palpitation, shortness of breath, proximal nocturnal dyspnea, orthopnea, pedal edema. He is compliant with his medications and otherwise feels well [facility] Medical History CKD (chronic kidney disease) stage 3, GFR 30-59 ml/min Hyperlipidemia Gout Essential hypertension Diabetes Chronic renal disease Chronic renal insufficiency CAD (coronary artery disease) History of hematuria Surgical History Hx of CABG FH: cholecystectomy Hx of hernia repair History of quadruple bypass Family History Sister Bipolar 1 disorder Mother Cancer Social History Household Members: None Housing: Apartment Do you presently have visiting nurse or other home services: No Alcohol intake: current Alcohol intake frequency: holidays/special occasions only Patient Tobacco Use Status: Former Tobacco user Tobacco use type: Cigar Second Hand Smoke Exposure: No Advance Directives Date on File: 11/18/23 service: Yes Review of Systems Const All systems reviewed & are unremarkable except as noted in HPI and below Physical Exam Vital Signs: Last Vital Signs Pulse 55 07/05/24 09:55 BP 160/70 H 07/05/24 09:55 Pulse Ox 98 07/05/24 09:55 Oxygen Delivery Method Room Air 07/05/24 09:55 BMI result Body Mass Index 25.3 Const General: comfortable and no acute distress Orientation/consciousness: patient oriented x3 HEENT Head: Yes normocephalic Mouth: Normal oral and palatal mucosa present Eyes EOM: EOMs intact bilaterally Neck Neck: Yes supple Resp Auscultation: clear to auscultation bilaterally Cardio Jugular venous distension: no JVD Rate: regular rate GI Palpation (GI): Soft to palpation Auscultation: normal bowel sounds General: Yes no CVA tenderness Back/Spine/Pelvis Back: no CVA tenderness Skin General skin exam: no rashes or lesions noted Neuro General: patient oriented x3 and moves all extremities Extrem General: Yes no pedal edema Results Reviewed Nephrology Results: Hgb 15.8 g/dl (14.0-18.0) 03/07/24 WBC 6.5 X10*3/uL (4.8-10.8) 03/07/24 Plt Count 220 X10*3/uL (160-400) 03/07/24 Sodium 140 mmol/L (135-145) 07/04/24 Potassium 4.1 mmol/L (3.3-5.1) 07/04/24 Chloride 103 mmol/L (96-108) 07/04/24 Carbon Dioxide 28 mmol/L (22-29) 07/04/24 BUN 18 mg/dL (9-16) H 07/04/24 Creatinine 1.44 mg/dL (0.5-1.4) H 07/04/24 Calcium 9.8 mg/dL (8.4-10.2) 03/07/24 Urine Protein Trace mg/dL (Neg-Trace) 07/05/24 Assessment & Plan Assessment & Plan (1) CKD (chronic kidney disease) stage 3, GFR 30-59 ml/min: Code(s): N18.30 - Chronic kidney disease, stage 3 unspecified Category: Medical Qualifiers: Chronic kidney disease stage 3 subtype: stage 3b (GFR 30-44) Qualified Code(s): N18.32 - Chronic kidney disease, stage 3b (2) Hypertension: Code(s): I10 - Essential (primary) hypertension Category: Medical Qualifiers: Hypertension type: primary hypertension Qualified Code(s): I10 - Essential (primary) hypertension Plan He has stage chronic kidney disease 3 at baseline. His renal functions had improved to baseline after holding lisinopril and hydrochlorothiazide. I shall reintroduce low-dose of ANH-inhibitor, with time if his renal functions and serum potassium permits. C/W amlodipine 5 mg daily to maintain his blood pressure at goal. His volume status is optimal. Urology colleagues are following him up. Follow-up blood work ordered follow-up appointment given .Answered all question Orders: Orders Electrolytes Today I10 - Essential (primary) hypertension, N18.32 - Chronic kidney disease, stage 3b Blood Urea Nitrogen Today I10 - Essential (primary) hypertension, N18.32 - Chronic kidney disease, stage 3b Creatinine Today I10 - Essential (primary) hypertension, N18.32 - Chronic kidney disease, stage 3b Coding Level of Care Code Est Pt Level 4 (04423) Diagnoses Stage 3b chronic kidney disease N18.32 Chronic kidney disease stage 3 subtype: stage 3b (GFR 30-44) Primary hypertension I10 Hypertension type: primary hypertension
[2024-07-05 09:55] VITALS: BP 130/70; PULSE 55; O2SAT 98; BMI 25.3
== END 2024-07-05 10:33 | disposition home or self-care (01) ==
PROVIDERS: PCP Internal Medicine; Visit Provider Internal Medicine Nephrology
DX: N18.32 Chronic kidney disease, stage 3b (principal); I10 Essential (primary) hypertension
CPT/HCPCS: 99214

== ENCOUNTER → 2024-07-05 09:34 | Outpatient (BNVA) | payer MEDICARE, MEDICAID, SELFPAY | PROVIDERS: PCP Internal Medicine; Visit Provider Internal Medicine Nephrology | DX: I12.9 Hypertensive chronic kidney disease with stage 1 through stage 4 chronic kidney disease, or unspecified chronic kidney disease (principal); N18.32 Chronic kidney disease, stage 3b | CPT/HCPCS: 99212 ==

== ENCOUNTER 2024-08-24 08:48 | Outpatient (AMB) | payer MEDICARE, MEDICAID, SELFPAY ==
--- NOTE | 2024-08-24 08:57 | MHC.OFFVIS ---
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 Status post repeat TURBT on 03/21/2024. Small papillary tumors noted on the right lateral wall lateral to the trigone. Pathology results low-grade noninvasive urothelial carcinoma. Completed gemcitabine bladder installations. Here for office cystoscopy. He states since on dual med for prostate he has a stronger flow. Cystoscopy findings: prostatic urethra trilobar enlargement, bulbous urethra WNL. 2 small </1-2 mm Papillary bladder tumors (posterior wall in a small diverticula) and right anterior lateral wall. Will monitor for now. FU in 3 months/cystoscopy. Review of chart: 06/21/24--here for follow-up. He states that he had his 1st bladder instillation of gemcitabine but was not able to keep the medication in the bladder for more than 20-30 minutes. I have discussed that we will try oxybutynin 5 mg day before the procedure day of the procedure in Pyridium 100 mg night before the procedure to see if this will decrease the bladder spasms. 04/17/24--Buck is an 88-year-old male status post repeat TURBT on 03/21/2024. Small papillary tumors noted on the right lateral wall lateral to the trigone. Pathology results low-grade noninvasive urothelial carcinoma. Random bladder biopsies benign. I have discussed gemcitabine and BCG bladder installations. [facility] does not have BCG available. The patient asks excellent questions and his questions were answered. 30 minutes spent in review of records pertaining to this visit and including [id number] discussion with the patient and documentation of this visit. 03/02/24--Buck is an 88-year-old male who presents today for a follow-up surveillance office cystoscopy. Diagnosed with bladder cancer status post TURBT 11/16/2023, low-grade urothelial carcinoma noninvasive. Followed for BPH on finasteride and tamsulosin. He was initially started on alfuzosin but had vomiting and upset stomach. Followed by nephrology for chronic kidney disease. Office cystoscopy-recurrent papillary bladder tumor </= 2 cm posterior wall, erythematous flattened changes right lateral wall. Will send urine for cytology. Plan discussed repeat cysto TURBT and bladder biopsies. Preop labs chemistry, CBC, EKG, stop aspirin 10 days. 12/02/23--status post cystoscopy TURBT- 11/16/2023--the patient is here with his family and I reviewed the pathology results low-grade urothelial carcinoma noninvasive muscularis propria was not the specimen. The patient presented to the emergency room after discharge due to calf pain and was ruled out for DVT but noted to have acute kidney injury he was hydrated and had medication adjustments with improvement in his kidney function. He was discharged on alfuzosin. He states he is voiding well except for increased urinary urgency every 1-1/2 hours. Bladder scan PVR 33 mL. Plan: Finasteride, alfuzosin, Surveillance cystoscopy every 3 months 09/22/2023 Cystoscopy procedure performed. Cystoscopy findings: office cystoscopy noted a papillary bladder tumor in the right lateral wall which is suspicious appearing. 09/16/23--CT findings -no acute findings in the urinary tract noted on study. [facility] Medical History CKD (chronic kidney disease) stage 3, GFR 30-59 ml/min Hyperlipidemia Gout Essential hypertension Diabetes Chronic renal disease Chronic renal insufficiency CAD (coronary artery disease) History of hematuria Surgical History Hx of CABG FH: cholecystectomy Hx of hernia repair History of quadruple bypass Family History Sister Bipolar 1 disorder Mother Cancer Social History Household Members: None Housing: Apartment Do you presently have visiting nurse or other home services: No Alcohol intake: current Alcohol intake frequency: holidays/special occasions only Patient Tobacco Use Status: Former Tobacco user Tobacco use type: Cigar Second Hand Smoke Exposure: No Advance Directives Date on File: 11/18/23 service: Yes Review of Systems Const All systems reviewed & are unremarkable except as noted in HPI and below Reports no additional complaints Eyes Reports no additional complaints ENT Reports no additional complaints Card Reports no additional complaints Resp Reports no additional complaints GI Reports no additional complaints Reports as per HPI Musc Reports no additional complaints Skin/Breast Reports system reviewed and no additional complaints, except as documented Neuro Reports no additional complaints Psych Reports no additional complaints Endo Reports no additional complaints Dell/Lymph Reports no additional complaints Aller/Immun Reports no additional complaints Office Procedures Cystoscopy Consent Discussed risk and benefit or proposed procedure with the patient. Information consent for procedure given to the patient. Discussed technical aspects, risks, benefits and alternatives in full. Addressed all of the patient's questions and concerns regarding the procedure. The patient demonstrated knowledge and understanding. They wish to proceed with this procedure. Preparation The patient was prepped in the usual manner. A bill hiker was present and in the room. Genitalia was prepped with betadine solution in a sterile manner. Lidocaine Jelly 2% was placed into the urethra and 16Fr flexible Olympus cystoscope was inserted into the meatus after adequate lubrication. Procedure Time out per protocol performed. Bladder Inspection Bladder Inspection: The bladder was inspected in its entirety with utilization retroflexion displaying: Tumor(s): 2 small </1-2 mm Papillary bladder tumor (posterior wall in a small diverticula) and right anterior lateral wall, Trabeculation: Moderate to significant with cellule changes, multifocal small diverticula Mucosal Erthema: mild Orifices: normal shape and position Urethra: normal Cystoscopy findings: prostatic urethra trilobar enlargement, bulbous urethra WNL. 2 small </1-2 mm Papillary bladder tumors (posterior wall in a small diverticula) and right anterior lateral wall. [id number] DISPOSABLE SCOPE URO-G FLEXIBLE SCOPE Procedure code (CPT) selection complete Office Meds lidocaine HCl 2 % mucosal jelly in applicator Performing Provider: Veena Yun MD Performing Location: [facility] Administered by: Juan Jose Quezada RN on 08/24/24 09:58 Dose Route Admin Location Dispensed Lot Number Expiration Date [facility] Basket Mender 10 mL intra-urethral 20 mL ciprofloxacin HCl 500 mg tablet Performing Provider: Veena Yun MD Performing Location: [facility] Administered by: Juan Jose Quezada RN on 08/24/24 09:58 Dose Route Admin Location Dispensed Lot Number Expiration Date [facility] Basket Mender 500 mg PO 1 tab Comments: patient refused naproxen. said he would rather take tylenol at home. Results AMB Urinalysis, Automated UA Leukoctes 0 Zoey/uL Last Edit by COURTNEY Gates on 08/24/24 10:07 UA Nitrite Negative Last Edit by COURTNEY Gates on 08/24/24 10:07 UA Urobilinogen 0.2 mg/dL Last Edit by COURTNEY Gates on 08/24/24 10:07 UA Protein 15 mg/dL Last Edit by COURTNEY Gates on 08/24/24 10:07 UA pH 6.0 Last Edit by COURTNEY Gates on 08/24/24 10:07 UA Blood 0 Catarino/uL Last Edit by COURTNEY Gates on 08/24/24 10:07 UA Specific [place] 1.025 Last Edit by COURTNEY Gates on 08/24/24 10:07 UA Ketone Negative Last Edit by COURTNEY Gates on 08/24/24 10:07 UA Bilirubin 0 mg/dL Last Edit by COURTNEY Gates on 08/24/24 10:07 UA Glucose 250 mg/dL Last Edit by COURTNEY Gates on 08/24/24 10:07 Results Reviewed Results Reviewed: Laboratory Last Values Urine pH (Auto) 6.0 08/24/24 10:06 Specific [place] (Auto) 1.025 08/24/24 10:06 Urine Protein (Auto) 15 mg/dL 08/24/24 10:06 Glucose (UA)(Auto) 250 mg/dL 08/24/24 10:06 Urine Ketones (Auto) Negative 08/24/24 10:06 Urine Blood (Auto) 0 Catarino/uL 08/24/24 10:06 Urine Nitrite (Auto) Negative 08/24/24 10:06 Urine Bilirubin (Auto) 0 mg/dL 08/24/24 10:06 Urine Urobilinogen (Auto) 0.2 mg/dL 08/24/24 10:06 Leukocyte Esterase (Auto) 0 Zoey/uL 08/24/24 10:06 Collected: 03/21/24 Location: [facility] Received: 03/21/24 Diagnosis A. Bladder, left lateral wall, biopsy: -Benign urothelium with mild chronic inflammation; muscularis propria present. B. Bladder, posterior wall, biopsy: -Benign urothelium with mild chronic inflammation and hemorrhage; no muscularis propria present. C. Bladder, right lateral wall near right trigone, tumor, transurethral resection: -Non-invasive papillary urothelial carcinoma, low-grade. -Muscularis propria present, without tumor. Bladder, transurethral resection/biopsy Procedure: Transurethral resection Tumor site: Right lateral wall near right trigone Histologic type: Papillary urothelial carcinoma, noninvasive Histologic grade: Low-grade Muscularis propria: Present Tumor extent: Noninvasive papillary carcinoma Lymphovascular invasion: Not identified D. Bladder, random dome, biopsy: -Benign urothelium; muscularis propria present. E. Bladder, right anterior wall, transurethral resection: -Papillary urothelial neoplasm of low malignant potential. -Muscularis propria present. Collected: 11/16/23 Location: [facility] Received: 11/16/23 Diagnosis A. Bladder, left lateral wall, biopsy: Mildly inflamed and congested urothelial mucosa; muscularis propria present; negative for malignancy. B. Bladder, posterior wall, biopsy: Mildly inflamed and congested urothelial mucosa; muscularis propria present; negative for malignancy. C. Bladder, right, transurethral resection: - Low-grade papillary urothelial carcinoma, non-invasive. - Muscularis propria present. Bladder, transurethral resection/biopsy Procedure: Transurethral resection Tumor site: Right Histologic type: Papillary carcinoma Histologic grade: Low grade Muscularis propria: Present Extent of invasion: Non-invasive Lymphovascular invasion: Not identified Date of Service: 09/16/23 EXAMINATION: CT ABDOMEN AND PELVIS WITHOUT CONTRAST CLINICAL INFORMATION: 88-year-old male with hematuria COMPARISON: 12/02/2016 FINDINGS: LUNG BASES: The visualized lung bases are unremarkable. LIVER, GALLBLADDER, AND BILIARY TREE: The liver is normal in size, shape, and attenuation. No focal hepatic lesion or biliary ductal dilatation is present. Gallbladder is not seen most likely surgically absent. PANCREAS: Unremarkable. SPLEEN: Unremarkable. ADRENAL GLANDS: Unremarkable. KIDNEYS AND URETERS: The kidneys are normal in size, shape, and attenuation. No hydronephrosis, hydroureter, or calculi seen. No perinephric stranding. BLADDER: Unremarkable. GASTROINTESTINAL TRACT: The small and large bowel are unremarkable. The appendix is unremarkable. ABDOMINAL WALL: No significant hernia is appreciated. LYMPH NODES: Normal. VASCULAR: Mild atherosclerotic calcifications seen in the abdominal aorta of normal caliber PELVIC VISCERA: Unremarkable. OSSEOUS STRUCTURES: Unremarkable. IMPRESSION: No explanation for hematuria. Status post cholecystectomy. Assessment & Plan Assessment & Plan (1) CKD (chronic kidney disease) stage 3, GFR 30-59 ml/min: Code(s): N18.30 - Chronic kidney disease, stage 3 unspecified Category: Medical Qualifiers: Chronic kidney disease stage 3 subtype: stage 3b (GFR 30-44) Qualified Code(s): N18.32 - Chronic kidney disease, stage 3b (2) Bladder cancer: Code(s): C67.9 - Malignant neoplasm of bladder, unspecified Category: Medical (3) BPH loc w urin obs/LUTS: Code(s): N40.1 - Benign prostatic hyperplasia with lower urinary tract symptoms Category: Medical Plan Continue Proscar and tamsulosin. Follow-up office cystoscopy in 3 months. Orders: Orders AMB Urinalysis Automated Today Z13.9 - Encounter for screening, unspecified AMB Cystoscopy Today C67.9 - Malignant neoplasm of bladder, unspecified, N40.1 - Benign prostatic hyperplasia with lower urinary tract symptoms Patient Instructions: The patient had an opportunity to ask questions regarding treatment plan. The patient expressed understanding and agreement with the above treatment plan. The patient is aware they should contact our office by phone for worsening of their current condition or the appearance of new symptoms. Compliance is encouraged with any medications and followup testing that is ordered. It is a privilege to be allowed the opportunity to participate in the urologic care of your patient. If you have any questions or concerns regarding treatment for the above conditions please do not hesitate to contact me. The office telephone contact is [phone]. This note is constructed in part using voice recognition software. While every effort has been made to ensure accuracy euclid operator errors may have been included. Yours sincerely, Veena Yun MD Coding Level of Care Code Est Pt Level 3 (51370) Diagnoses Stage 3b chronic kidney disease N18.32 Chronic kidney disease stage 3 subtype: stage 3b (GFR 30-44) Bladder cancer C67.9 BPH loc w urin obs/LUTS N40.1 CPT Codes Cystoscopy - CPT: 92151-[id number] ([id number])
== END 2024-08-24 10:22 | disposition home or self-care (01) ==
PROVIDERS: PCP Internal Medicine; Visit Provider Urology
DX: N18.32 Chronic kidney disease, stage 3b (principal); C67.9 Malignant neoplasm of bladder, unspecified; N40.1 Benign prostatic hyperplasia with lower urinary tract symptoms; Z13.9 Encounter for screening, unspecified
CPT/HCPCS: 52000; 99213

== ENCOUNTER → 2024-08-24 08:48 | Outpatient (BNVA) | payer MEDICARE, MEDICAID, SELFPAY | PROVIDERS: PCP Internal Medicine; Visit Provider Urology | DX: C67.9 Malignant neoplasm of bladder, unspecified (principal); N40.1 Benign prostatic hyperplasia with lower urinary tract symptoms; N18.32 Chronic kidney disease, stage 3b | CPT/HCPCS: 52000; 81003; 99212 ==

== ENCOUNTER 2024-08-29 09:23 | Outpatient (REF) | payer MEDICARE, MEDICAID, SELFPAY ==
[2024-08-29 10:53] LABS: MANUAL DIFF FLAG NO
[2024-08-29 11:01] LABS: Basophils Absolute Auto 0.1 X10*3/uL (0.0-0.2); Eosinophils Absolute Auto 0.5 X10*3/uL (0.0-0.4); Eosinophils Percent Auto 6.8 % (0-4); Hematocrit 43.5 % (42.0-52.0); Hemoglobin 14.6 g/dl (14.0-18.0); Imm Gran Abs Auto 0.03 X10*3/uL (0.00-0.03); Imm Gran Pct Auto 0.4 % (0.0-0.4); Lymphocytes Absolute Auto 0.9 X10*3/uL (1.2-4.9); Lymphocytes Percent Auto 13.6 % (20-40); Mean Corpuscular HGB Conc 33.6 g/dl (31.0-36.0); Mean Corpuscular Hemoglobin 30.6 pg (27.0-33.0); Mean Corpuscular Volume 91.2 fL (80.0-98.0); Mean Platelet Volume 10.3 fL (9.4-12.4); Monocytes Absolute Auto 0.8 X10*3/uL (0.1-1.2); Monocytes Percent Auto 11.1 % (2-11); Neutrophils Absolute Auto 4.6 x10*3/uL (2.0-8.3); Neutrophils Percent Auto 67.1 % (45-73); Platelet Count 196 X10*3/uL (160-400); Red Blood Count 4.77 X10*6/uL (4.60-5.80); Red Cell Distribution Width 14.2 % (11.0-16.0); White Blood Count 6.8 X10*3/uL (4.8-10.8)
[2024-08-29 11:18] LABS: Estimated Average Glucose 128 mg/dL; Hemoglobin A1C 169.0853 umol/L; Hemoglobin A1c % 6.1 % (<6.0); Total Hemoglobin (HGBA1C) 3874.2354 umol/L
[2024-08-29 11:47] LABS: Creatinine Urine 160.81 mg/dL; Microalbum/Creatinine Ratio Ur 4.9 ug/mg cr (<30)
[2024-08-29 11:50] LABS: Alanine Aminotransferase 46 U/L (0-40); Albumin Level 3.9 g/dL (3.5-5.0); Alkaline Phosphatase 101 U/L (39-117); Anion Gap 12 (12-20); Aspartate Amino Transferase 33 U/L (5-37); Bilirubin Total 0.7 mg/dL (0.0-1.0); Blood Urea Nitrogen 15 mg/dL (9-16); Calcium 9.4 mg/dL (8.4-10.2); Carbon Dioxide 29 mmol/L (22-29); Chloride 107 mmol/L (96-108); Cholesterol 136 mg/dL (<200); Estimated Glomerular Filt Rate 51; Glucose Fasting 141 mg/dL (60-99); HDL Cholesterol 34 mg/dL (>40); LDL Cholesterol Calculated 81 mg/dL (<100); Potassium 3.9 mmol/L (3.3-5.1); Sodium 144 mmol/L (135-145); Total Protein 6.6 g/dL (6.5-8.0); Triglycerides 109 mg/dL (<150)
== END 2024-08-29 09:24 | disposition home or self-care (01) ==
LOC: HO.10HDL 09:23
PROVIDERS: Visit Provider Internal Medicine
DX: I25.10 Atherosclerotic heart disease of native coronary artery without angina pectoris (principal); E78.00 Pure hypercholesterolemia, unspecified; I12.9 Hypertensive chronic kidney disease with stage 1 through stage 4 chronic kidney disease, or unspecified chronic kidney disease; N18.9 Chronic kidney disease, unspecified; R73.03 Prediabetes
CPT/HCPCS: 36415; 80053; 80061; 82043; 82570; 83036; 85025

== ENCOUNTER 2024-11-27 09:18 | Outpatient (REF) | payer MEDICARE, MEDICAID, SELFPAY ==
--- OUTSIDE RECORDS SUMMARY | 2024-11-27 14:42 | XMS_ITS | Clinical Summary ---
Author Organization [facility] Address [address] [place] [address] Phone Care Team Providers Care Senior Technical Project Manager Name Role Phone Myke Silva MD Primary Care Provider [phone] Allergies No known active allergies Medications omeprazole [...] this topic Insurance MEDICARE MEDICARE Care Teams Senior Technical Project Manager Relationship Specialty Start Date End Date Myke Silva MD [address] [place] [address] [address] MARICRUZ MAHAJAN PCP - General 11/11/20
[2024-11-27 16:55] LABS: Urine Cytology See Pathology rpt
== END 2024-11-27 09:19 | disposition home or self-care (01) ==
LOC: HO.LAB 09:18
PROVIDERS: PCP Internal Medicine; Visit Provider Urology
DX: C67.9 Malignant neoplasm of bladder, unspecified (principal); R31.9 Hematuria, unspecified; R82.89 Other abnormal findings on cytological and histological examination of urine; D49.4 Neoplasm of unspecified behavior of bladder
CPT/HCPCS: 52000; 81003; 88112; 99212

== ENCOUNTER 2024-11-27 09:18 | Outpatient (AMB) | payer MEDICARE, MEDICAID, SELFPAY ==
--- NOTE | 2024-11-26 23:07 | MHC.OFFVIS ---
Intake Visit Reasons: cysto Intake Note: Patient Is Present for Cystoscopy Urology Med: Finasteride, Tamsulosin Antibiotic Allergy: None Blood Thinner: None Uro G-HD Disposable Cystoscope LOT: [id number] EXP: 03/09/2027 Rack Production Worker Required: No Accompanied by: Self / Same As Patient Allergies alfuzosin Allergy (Mild, Verified 11/27/24 09:45) Vomiting Medication List - Last Reconciled 11/27/24 by Veena Yun MD amlodipine (Norvasc) 5 mg (2 x 2.5 mg) PO DAILY 90 days atorvastatin (Lipitor) 20 mg PO DAILY finasteride 5 mg PO DAILY metoprolol succinate ER (Toprol XL) 25 mg PO DAILY tamsulosin 0.4 mg PO BEDTIME 30 days HPI Comments Details: 11/27/24--89-year-old male initially diagnosed 11/16/2023, [id number] urothelial carcinoma noninvasive. Status post repeat TURBT on 03/21/2024, small papillary tumors noted on the right lateral wall lateral to the trigone;pathology results low-grade noninvasive urothelial carcinoma. Completed gemcitabine bladder installations. Last cystoscopy 08/24/2024- no suspicious lesions. Here for 3 month surveillance office cystoscopy. Cystoscopy findings: Small papillary lesions posterior wall. Plan will send urine for cytology. CT urogram. Follow-up cystoscopy TURBT with possible bilateral retrogrades/ureteroscopy. 08/24/2024--89-year-old male initially diagnosed 11/16/2023, low-grade urothelial carcinoma noninvasive. Status post repeat TURBT on 03/21/2024. Small papillary tumors noted on the right lateral wall lateral to the trigone. Pathology results low-grade noninvasive urothelial carcinoma. Completed gemcitabine bladder installations. Here for office cystoscopy. He states since on dual med for prostate he has a stronger flow. Cystoscopy findings: prostatic urethra trilobar enlargement, bulbous urethra WNL. 2 small </1-2 mm Papillary bladder tumors (posterior wall in a small diverticula) and right anterior lateral wall. Will monitor for now. FU in 3 months/cystoscopy. 06/21/24--here for follow-up. He states that he had his 1st bladder instillation of gemcitabine but was not able to keep the medication in the bladder for more than 20-30 minutes. I have discussed that we will try oxybutynin 5 mg day before the procedure day of the procedure in Pyridium 100 mg night before the procedure to see if this will decrease the bladder spasms. 04/17/24--Buck is an 88-year-old male status post repeat TURBT on 03/21/2024. Small papillary tumors noted on the right lateral wall lateral to the trigone. Pathology results low-grade noninvasive urothelial carcinoma. Random bladder biopsies benign. I have discussed gemcitabine and BCG bladder installations. [facility] does not have BCG available. The patient asks excellent questions and his questions were answered. 30 minutes spent in review of records pertaining to this visit and including [id number] discussion with the patient and documentation of this visit. 03/02/24--Buck is an 88-year-old male who presents today for a follow-up surveillance office cystoscopy. Diagnosed with bladder cancer status post TURBT 11/16/2023, low-grade urothelial carcinoma noninvasive. Followed for BPH on finasteride and tamsulosin. He was initially started on alfuzosin but had vomiting and upset stomach. Followed by nephrology for chronic kidney disease. Office cystoscopy-recurrent papillary bladder tumor </= 2 cm posterior wall, erythematous flattened changes right lateral wall. Will send urine for cytology. Plan discussed repeat cysto TURBT and bladder biopsies. Preop labs chemistry, CBC, EKG, stop aspirin 10 days. 12/02/23--status post cystoscopy TURBT- 11/16/2023--the patient is here with his family and I reviewed the pathology results low-grade urothelial carcinoma noninvasive muscularis propria was not the specimen. The patient presented to the emergency room after discharge due to calf pain and was ruled out for DVT but noted to have acute kidney injury he was hydrated and had medication adjustments with improvement in his kidney function. He was discharged on alfuzosin. He states he is voiding well except for increased urinary urgency every 1-1/2 hours. Bladder scan PVR 33 mL. Plan: Finasteride, alfuzosin, Surveillance cystoscopy every 3 months 09/22/2023 Cystoscopy procedure performed. Cystoscopy findings: office cystoscopy noted a papillary bladder tumor in the right lateral wall which is suspicious appearing. 09/16/23--CT findings -no acute findings in the urinary tract noted on study. [facility] Medical History CKD (chronic kidney disease) stage 3, GFR 30-59 ml/min Hyperlipidemia Gout Essential hypertension Diabetes Chronic renal disease Chronic renal insufficiency CAD (coronary artery disease) History of hematuria Surgical History Hx of CABG FH: cholecystectomy Hx of hernia repair History of quadruple bypass Family History Sister Bipolar 1 disorder Mother Cancer Social History Household Members: None Housing: Apartment Do you presently have visiting nurse or other home services: No Alcohol intake: current Alcohol intake frequency: holidays/special occasions only Patient Tobacco Use Status: Former Tobacco user Tobacco use type: Cigar Second Hand Smoke Exposure: No Advance Directives Date on File: 11/18/23 service: Yes Review of Systems Const All systems reviewed & are unremarkable except as noted in HPI and below Reports no additional complaints Eyes Reports no additional complaints ENT Reports no additional complaints Card Reports no additional complaints Resp Reports no additional complaints GI Reports no additional complaints Reports as per HPI Musc Reports no additional complaints Skin/Breast Reports system reviewed and no additional complaints, except as documented Neuro Reports no additional complaints Psych Reports no additional complaints Endo Reports no additional complaints Dell/Lymph Reports no additional complaints Aller/Immun Reports no additional complaints Office Procedures Cystoscopy Consent Discussed risk and benefit or proposed procedure with the patient. Information consent for procedure given to the patient. Discussed technical aspects, risks, benefits and alternatives in full. Addressed all of the patient's questions and concerns regarding the procedure. The patient demonstrated knowledge and understanding. They wish to proceed with this procedure. Preparation The patient was prepped in the usual manner. A simulation developer was present and in the room. Genitalia was prepped with betadine solution in a sterile manner. Lidocaine Jelly 2% was placed into the urethra and 16Fr flexible Olympus cystoscope was inserted into the meatus after adequate lubrication. Procedure Time out per protocol performed. Bladder Inspection Bladder Inspection: The bladder was inspected in its entirety with utilization retroflexion displaying: Tumor(s): Multiple small papillary lesions posterior wall Trabeculation: Moderate with cellule changes, and diverticuli Mucosal Erthema: Mild Orifices: normal shape and position Urethra: normal Cystoscopy findings: prostatic urethra trilobar enlargement, bulbous urethra WNL, Small papillary lesions posterior wall. [id number] DISPOSABLE SCOPE URO-G FLEXIBLE SCOPE Procedure code (CPT) selection complete Office Meds lidocaine HCl 2 % mucosal jelly in applicator Performing Provider: Veena Yun MD [facility] Administered by: Sudhir Shearer LPN on 11/27/24 10:07 Dose Route Admin Location Dispensed Lot Number Expiration Date NDC Punch Finisher 10 mL intra-urethral 20 mL ciprofloxacin HCl 500 mg tablet Performing Provider: Veena Yun MD Performing Location[facility] Administered by: Sudhir Shearer LPN on 11/27/24 10:07 Dose Route Admin Location Dispensed Lot Number Expiration Date ND Punch Finisher 500 mg PO 1 tab Results AMB Urinalysis, Automated UA Leukoctes 0 Zoey/uL Last Edit by FELI Knapp on 11/27/24 09:58 UA Nitrite Negative Last Edit by Kera Dietz Sherron on 11/27/24 09:58 UA Urobilinogen 0.2 mg/dL Last Edit by FELI Knapp on 11/27/24 09:58 UA Protein 15 mg/dL Last Edit by Kera Dietz Sherron on 11/27/24 09:58 UA pH 5.0 Last Edit by FELI Knapp on 11/27/24 09:58 UA Blood 80 Catarino/uL Last Edit by FELI Knapp on 11/27/24 09:58 UA Specific [place] 1.025 Last Edit by FELI Knapp on 11/27/24 09:58 UA Ketone Negative Last Edit by FELI Knapp on 11/27/24 09:58 UA Bilirubin 0 mg/dL Last Edit by DELIA Knapp on 11/27/24 09:58 UA Glucose 500 mg/dL Last Edit by FELI Knapp on 11/27/24 09:58 Results Reviewed Results Reviewed: Laboratory Last Values Urine pH (Auto) 5.0 11/27/24 09:46 Specific [place] (Auto) 1.025 11/27/24 09:46 Urine Protein (Auto) 15 mg/dL 11/27/24 09:46 Glucose (UA)(Auto) 500 mg/dL 11/27/24 09:46 Urine Ketones (Auto) Negative 11/27/24 09:46 Urine Blood (Auto) 80 Catarino/uL 11/27/24 09:46 Urine Nitrite (Auto) Negative 11/27/24 09:46 Urine Bilirubin (Auto) 0 mg/dL 11/27/24 09:46 Urine Urobilinogen (Auto) 0.2 mg/dL 11/27/24 09:46 Leukocyte Esterase (Auto) 0 Zoey/uL 11/27/24 09:46 Assessment & Plan Assessment & Plan (1) Hematuria: Code(s): R31.9 - Hematuria, unspecified Category: Medical (2) Urine cytology abnormal: Code(s): R82.89 - Other abnormal findings on cytological and histological examination of urine Category: Medical (3) Bladder neoplasm: Code(s): D49.4 - Neoplasm of unspecified behavior of bladder Category: Medical Plan Cystoscopy findings: Small papillary lesions posterior wall. Plan will send urine for cytology. CT urogram. Follow-up cystoscopy TURBT with possible bilateral retrogrades/ureteroscopy. Stop aspirin 325 mg 14 days prior. Orders: Orders AMB Urinalysis Automated Today Z13.9 - Encounter for screening, unspecified AMB Cystoscopy Today C67.9 - Malignant neoplasm of bladder, unspecified CT urogram Today D49.4 - Neoplasm of unspecified behavior of bladder, R31.9 - Hematuria, unspecified, R82.89 - Other abnormal findings on cytological and histological examination of urine Urine Cytology Today C67.9 - Malignant neoplasm of bladder, unspecified Medications: Refilled tamsulosin 0.4 mg PO BEDTIME 30 days 90 caps 3RF Patient Instructions: The patient had an opportunity to ask questions regarding treatment plan. The patient expressed understanding and agreement with the above treatment plan. The patient is aware they should contact our office by phone for worsening of their current condition or the appearance of new symptoms. Compliance is encouraged with any medications and followup testing that is ordered. It is a privilege to be allowed the opportunity to participate in the urologic care of your patient. If you have any questions or concerns regarding treatment for the above conditions please do not hesitate to contact me. The office telephone contact is [phone]. This note is constructed in part using voice recognition software. While every effort has been made to ensure accuracy wire sawyer errors may have been included. Yours sincerely, Veena Yun MD Coding Level of Care Code Est Pt Level 4 (65939) Diagnoses Hematuria R31.9 Urine cytology abnormal R82.89 Bladder neoplasm D49.4 CPT Codes Cystoscopy - CPT: 26118-[id number] ([id number])
--- OUTSIDE RECORDS SUMMARY | 2024-11-27 13:39 | XMS_ITS | Clinical Summary ---
Author Organization [facility] Address [address] [place] [address] Phone Care Team Providers Care Junior Copywriter Name Role Phone Myke Silva MD Primary Care Provider [phone] Allergies No known active allergies Medications omeprazole OTC (PriLOSEC OTC) 20 MG EC tablet Take 1 tablet by mouth 1 (one) time each day Active metoprolol succinate XL (TOPROL XL) 25 MG 24 hr tablet Take 1 tablet by mouth 1 (one) time each day Active lisinopril (PRINIVIL,ZESTR IL) 20 MG tablet Take 1 tablet by mouth 1 (one) time each day Active cholecalciferol (VITAMIN D-3) 25 MCG (1000 UT) capsule Take 2 capsules by mouth 1 (one) time each day Active atorvastatin (LIPITOR) 20 MG tablet Take 1 tablet by mouth 1 (one) time each day Active aspirin 325 MG EC tablet Take 1 tablet by mouth 1 (one) time each day Active allopurinol (ZYLOPRIM) 100 MG tablet Comments: Filled Date: Oct 22 2020 3:25PM Patient Notes: TAKE TWO TABLETS BY MOUTH EVERY DAY Duration: 90 10/22/2020 Active hydroCHLOROthia zide 25 MG tablet TAKE ONE TABLET BY MOUTH EVERY DAY 90 tablet 5 11/17/2021 Active Active Problems Problem Noted Date Diagnosed Date Stage 3b chronic kidney disease 07/20/2022 Stage 3a chronic kidney disease 02/10/2021 Gout monitoring status 02/10/2021 Renal osteodystrophy 02/10/2021 Hypertensive chronic kidney disease 02/10/2021 Chronic kidney disease stage 3 02/09/2021 Essential hypertension 02/09/2021 Hyperparathyroidism due to renal insufficiency 0 02/09/2021 Hyposmolality and/or hyponatremia 02/09/2021 Immunizations Name Administration Dates Next Due Pneumococcal Polysaccharide 05/24/2014 Family History Medical History Relation Comments Heart disease Father Cancer Mother Relation Status Comments Father Mother Social History Tobacco Use Types Packs/Day Years Used Date Smoking Tobacco: Former Smokeless Tobacco: Former Tobacco Cessation:Counseling Given: Not Answered Alcohol Use Standard Drinks/Week Comments Yes 0 (1 standard drink = 0.6 oz pure alcohol) Alcoholic Drinks/day: Occasional social drink Sex and Gender Information Value Date Recorded Sex Assigned at Not on file Legal Sex Male 5:04 PM EST Gender Identity Not on file Sexual Orientation Not on file Last Filed Vital Signs Vital Sign Reading Time Taken Comments Blood Pressure 120/62 09/06/2023 3:02 PM EST Pulse 61 09/06/2023 3:02 PM EST Temperature - - Respiratory Rate - - Oxygen Saturation 96% 09/06/2023 3:02 PM EST Inhaled Oxygen Concentration - - Weight 66 kg (145 lb 9.6 oz) 07/20/2022 1:09 PM EDT Height 167.6 cm (5' 6 ) 08/20/2020 12:00 PM EDT Body Mass Index 23.5 08/20/2020 12:00 PM EDT Plan of Treatment Health Maintenance Due Date Last Done Comments Pneumococcal Vaccine: 65+ Ye ars (2 of 2 - PCV) 05/24/2015 05/24/2014 Influenza Vaccine (#1) 2024 Hepatitis B Vaccine Aged Out No longe r eligible based on patient's age to complete this topic Insurance MEDICARE MEDICARE Care Teams Junior Copywriter Relationship Specialty Start Date End Date Myke Silva MD [address] [place] [address] [id number] MARICRUZ MAHAJAN PCP - General 11/11/20
== END 2024-11-27 10:44 | disposition home or self-care (01) ==
PROVIDERS: PCP Internal Medicine; Visit Provider Urology
DX: R31.9 Hematuria, unspecified (principal); R82.89 Other abnormal findings on cytological and histological examination of urine; D49.4 Neoplasm of unspecified behavior of bladder; C67.8 Malignant neoplasm of overlapping sites of bladder; Z13.9 Encounter for screening, unspecified
CPT/HCPCS: 52000; 99214

== ENCOUNTER 2025-01-01 10:30 | Outpatient (REF) | payer MEDICARE, MEDICAID, SELFPAY ==
--- OUTSIDE RECORDS SUMMARY | 2025-01-01 12:12 | XMS_ITS | Clinical Summary ---
Author Organization [facility] Address [address] [place] [address] Phone Care Team Providers Care Cutter Grind Tool Technician Name Role Phone Myke Silva MD Primary Care Provider [phone] Allergies No known active allergies Medications omeprazole [...] this topic Insurance MEDICARE MEDICARE Care Teams Cutter Grind Tool Technician Relationship Specialty Start Date End Date Myke Silva MD [address] [place] [address] [id number] MARICRUZ MAHAJAN PCP - General 11/11/20
[2025-01-01 12:18] LABS: Anion Gap 14 (12-20); Blood Urea Nitrogen 18 mg/dL (9-16); Carbon Dioxide 28 mmol/L (22-29); Chloride 104 mmol/L (96-108); Estimated Glomerular Filt Rate 46; Potassium 3.9 mmol/L (3.3-5.1); Sodium 142 mmol/L (135-145)
== END 2025-01-01 10:31 | disposition home or self-care (01) ==
LOC: HO.10HDL 10:30
PROVIDERS: Visit Provider Internal Medicine Nephrology
DX: N18.32 Chronic kidney disease, stage 3b (principal); I10 Essential (primary) hypertension
CPT/HCPCS: 36415; 80051; 82565; 84520

== ENCOUNTER 2025-01-03 09:32 | Outpatient (AMB) | payer MEDICARE, MEDICAID, SELFPAY ==
--- NOTE | 2025-01-03 09:38 | HO.NEPHOV ---
Vital Signs 01/03/25 09:39 Height 5 ft 5 in Weight 151 lb 4 oz BMI 25.2 BP 154/60 H Blood Pressure Location Lt brachial Position Sitting Intake Visit Reasons: 6 mon follow up-[facility] Inspector Publications Required: No Accompanied by: Self / Same As Patient Allergies alfuzosin Allergy (Mild, Verified 01/03/25 09:39) Vomiting HPI Comments Details: 88 years old man with CKD stage 3 at baseline. He had transurethral resection of bladder tumor by Dr. Mahajan. He undergoes treatment by Urology. He did not have any new complaints at the time of this office visit. He has history of CABG but denies any chest pain, palpitation, shortness of breath, proximal nocturnal dyspnea, orthopnea, pedal edema. He is compliant with his medications and otherwise feels well [facility] Medical History CKD (chronic kidney disease) stage 3, GFR 30-59 ml/min Hyperlipidemia Gout Essential hypertension Diabetes Chronic renal disease Chronic renal insufficiency CAD (coronary artery disease) History of hematuria Surgical History Hx of CABG FH: cholecystectomy Hx of hernia repair History of quadruple bypass Family History Sister Bipolar 1 disorder Mother Cancer Social History Household Members: None Housing: Apartment Do you presently have visiting nurse or other home services: No Alcohol intake: current Alcohol intake frequency: holidays/special occasions only Patient Tobacco Use Status: Former Tobacco user Tobacco use type: Cigar Second Hand Smoke Exposure: No Advance Directives Date on File: 11/18/23 service: Yes Review of Systems Const All systems reviewed & are unremarkable except as noted in HPI and below Physical Exam Vital Signs: Last Vital Signs BP 154/60 H 01/03/25 09:39 BMI result Body Mass Index 25.2 Const General: comfortable and no acute distress Orientation/consciousness: patient oriented x3 HEENT Head: Yes normocephalic Mouth: Normal oral and palatal mucosa present Eyes EOM: EOMs intact bilaterally Neck Neck: Yes supple Resp Auscultation: clear to auscultation bilaterally Cardio Jugular venous distension: no JVD Rate: regular rate GI Palpation (GI): Soft to palpation Auscultation: normal bowel sounds General: Yes no CVA tenderness Back/Spine/Pelvis Back: no CVA tenderness Skin General skin exam: no rashes or lesions noted Neuro General: patient oriented x3 and moves all extremities Extrem General: Yes no pedal edema Results Reviewed Nephrology Results: Hgb 14.6 g/dl (14.0-18.0) 08/29/24 WBC 6.8 X10*3/uL (4.8-10.8) 08/29/24 Plt Count 196 X10*3/uL (160-400) 08/29/24 Sodium 142 mmol/L (135-145) 01/01/25 Potassium 3.9 mmol/L (3.3-5.1) 01/01/25 Chloride 104 mmol/L (96-108) 01/01/25 Carbon Dioxide 28 mmol/L (22-29) 01/01/25 BUN 18 mg/dL (9-16) H 01/01/25 Creatinine 1.45 mg/dL (0.5-1.4) H 01/01/25 Calcium 9.4 mg/dL (8.4-10.2) 08/29/24 Urine Protein Negative mg/dL (Neg-Trace) 07/26/24 Urine Creatinine 160.81 mg/dL 08/29/24 Assessment & Plan Assessment & Plan (1) CKD (chronic kidney disease) stage 3, GFR 30-59 ml/min: Code(s): N18.30 - Chronic kidney disease, stage 3 unspecified Category: Medical Qualifiers: Chronic kidney disease stage 3 subtype: stage 3b (GFR 30-44) Qualified Code(s): N18.32 - Chronic kidney disease, stage 3b (2) Hypertension: Code(s): I10 - Essential (primary) hypertension Category: Medical Qualifiers: Hypertension type: primary hypertension Qualified Code(s): I10 - Essential (primary) hypertension Plan He has stage chronic kidney disease 3 at baseline. His renal functions had been stable close to baseline after holding lisinopril and hydrochlorothiazide. I shall reintroduce low-dose of ANH-inhibitor, with time if his renal functions and serum potassium permits. C/W amlodipine 5 mg twice daily to maintain his blood pressure at goal. His volume status is optimal. Urology colleagues are following him up. Follow-up blood work ordered follow-up appointment given .Answered all question Orders: Orders Creatinine 6 Months I10 - Essential (primary) hypertension, N18.32 - Chronic kidney disease, stage 3b Electrolytes 6 Months I10 - Essential (primary) hypertension, N18.32 - Chronic kidney disease, stage 3b Blood Urea Nitrogen 6 Months I10 - Essential (primary) hypertension, N18.32 - Chronic kidney disease, stage 3b Coding Level of Care Code Est Pt Level 4 (35062) Diagnoses Stage 3b chronic kidney disease N18.32 Chronic kidney disease stage 3 subtype: stage 3b (GFR 30-44) Primary hypertension I10 Hypertension type: primary hypertension
[2025-01-03 09:39] VITALS: BP 154/60; BMI 25.2
--- OUTSIDE RECORDS SUMMARY | 2025-01-03 10:49 | XMS_ITS | Clinical Summary ---
Author Organization [facility] Address [address] [place] [address] Phone Care Team Providers Care Project Manager Name Role Phone Myke Silva MD Primary Care Provider [phone] Allergies No known active allergies Medications omeprazole [...] this topic Insurance MEDICARE MEDICARE Care Teams Project Manager Relationship Specialty Start Date End Date Myke Silva MD [address] [place] [address] [id number] MARICRUZ MAHAJAN PCP - General 11/11/20
== END 2025-01-03 09:55 | disposition home or self-care (01) ==
PROVIDERS: PCP Internal Medicine; Visit Provider Internal Medicine Nephrology
DX: N18.32 Chronic kidney disease, stage 3b (principal); I10 Essential (primary) hypertension
CPT/HCPCS: 99214

== ENCOUNTER → 2025-01-03 09:32 | Outpatient (BNVA) | payer MEDICARE, MEDICAID, SELFPAY | PROVIDERS: PCP Internal Medicine; Visit Provider Internal Medicine Nephrology | DX: I12.9 Hypertensive chronic kidney disease with stage 1 through stage 4 chronic kidney disease, or unspecified chronic kidney disease (principal); N18.32 Chronic kidney disease, stage 3b; Z95.1 Presence of aortocoronary bypass graft | CPT/HCPCS: 99212 ==

== ENCOUNTER 2025-01-19 14:09 | Outpatient (REF) | payer MEDICARE, MEDICAID, SELFPAY ==
--- NOTE | ~2025-01-19 | MR_ITS ---
CLINICAL HISTORY: C67.9 - Malignant neoplasm of bladder, unspecified MRI abdomen and pelvis without and with contrast Comparison: 09/16/2023 Findings: 1.7 cm cyst within the posterior segment of the liver. 1.1 cm cyst within the lateral segment of the liver. Moderate pancreatic volume loss. Unremarkable spleen and adrenal glands. [id number] bilateral renal volume loss. Multiple small bilateral kidney cysts. No solid renal nodule. Prior cholecystectomy. No free fluid or lymphadenopathy. There are 2 solid enhancing nodules associated with the anterior superior aspect of the urinary bladder, measuring 7 and 9 mm in size respectively. There are multiple tiny bladder diverticula. The prostate gland is mildly enlarged and heterogeneous. Small right femoral hernia containing fat. No bowel dilatation or edema. No suspicious bone lesion. Hemangioma incidentally noted within the L4 vertebral body. Impression: 1. There are 2 small solid nodules associated with the bladder wall. Recommend correlation with cystoscopy. 2. Enlarged heterogeneous prostate gland. This document has been electronically signed by: Gayle Gibson MD on 01/19/2025 16:50:25
[2025-01-19] MEDS: gadobutroL 7.5 ML VIAL IVPUSH (16:10)
--- OUTSIDE RECORDS SUMMARY | 2025-01-19 16:32 | XMS_ITS | Clinical Summary ---
Author Organization [facility] Address [address] [place] [address] Phone Care Team Providers Care Product Marketing Executive Name Role Phone Myke Silva MD Primary Care Provider [phone] Allergies No known active allergies Medications omeprazole [...] this topic Insurance MEDICARE MEDICARE Care Teams Product Marketing Executive Relationship Specialty Start Date End Date Myke Silva MD [address] [place] [address] [id number] MARICRUZ MAHAJAN PCP - General 11/11/20
== END 2025-01-19 14:10 | disposition home or self-care (01) ==
LOC: HO.MRI 14:09
PROVIDERS: PCP Internal Medicine; Visit Provider Urology
DX: C67.9 Malignant neoplasm of bladder, unspecified (principal)
CPT/HCPCS: 74183; A9585

== ENCOUNTER → 2025-01-19 14:20 | Outpatient (BNV) | payer MEDICARE, MEDICAID, SELFPAY | PROVIDERS: PCP Internal Medicine; Visit Provider Radiology Diagnostic Radiology | DX: N32.89 Other specified disorders of bladder (principal); N40.0 Benign prostatic hyperplasia without lower urinary tract symptoms | CPT/HCPCS: 74183 ==

== ENCOUNTER → 2025-01-19 14:30 | Outpatient (BNV) | payer MEDICARE, MEDICAID, SELFPAY | PROVIDERS: PCP Internal Medicine; Visit Provider Internal Medicine Cardiovascular Disease | DX: Z01.818 Encounter for other preprocedural examination (principal) | CPT/HCPCS: 93010 ==

== ENCOUNTER 2025-01-23 10:05 | Day surgery (SDC) | payer MEDICARE, MEDICAID, SELFPAY ==
--- NOTE | 2025-01-19 | ECG_ITS ---
Test Reason : PRE OP Blood Pressure : */* mmHG Vent. Rate : 60 BPM Atrial Rate : 60 BPM P-R Int : 170 ms QRS Dur : 92 ms QT Int : 410 ms P-R-T Axes : 80 -16 46 degrees QTcB Int : 410 ms Normal sinus rhythm Normal ECG When compared with ECG of 16-Nov-2023 07:22, No significant change was found Referred By: Mary Moreno Electronically Signed By: Solomon Arteaga
[2025-01-19 11:10] VITALS: BMI 25.1
[2025-01-23] VITALS (8 sets, daily range): BP systolic 148–177; BP diastolic 61–86; PULSE 55–63; RESP 16–18; TEMP 36.3; O2SAT 95–98; BMI 24.7
--- NOTE | 2025-01-23 12:26 | P.CONAN_ITS ---
HPI - Anesthesia Eval Consult details Narrative: for cysto/TURB PMFSH Active Problems Active Problems: All Active Problems Hypertension (Acute) Bladder cancer (Acute) UTI (urinary tract infection) (Acute) BPH loc w urin obs/LUTS (Acute) Bladder neoplasm (Acute) Urine cytology abnormal (Acute) Hematuria (Acute) CKD (chronic kidney disease) stage 3, GFR 30-59 ml/min (Acute) Past Medical History Medical History CKD (chronic kidney disease) stage 3, GFR 30-59 ml/min Hyperlipidemia Gout Essential hypertension Diabetes Chronic renal disease Chronic renal insufficiency CAD (coronary artery disease) History of hematuria Family History Family History Sister Bipolar 1 disorder Mother Cancer Family history of problems with anesthesia: No Surgical History Surgical History History of transurethral resection of bladder tumor (TURBT) Hx of CABG FH: cholecystectomy Hx of hernia repair History of quadruple bypass History of Problems with Anesthesia: No Social History Social History Household Members: None Housing: Apartment Are you a primary health care attorney to a significant other at home: No Do you presently have visiting nurse or other home services: No Alcohol intake: current Alcohol intake frequency: holidays/special occasions only Patient Tobacco Use Status: Former Tobacco user Tobacco use type: Cigar Second Hand Smoke Exposure: No Use of substances other than those prescribed or required for medical reasons: No Have you been hit, kicked, punched, or otherwise hurt by someone within the past year? If so, by whom?: No Are you DNR?: No Advance Directives: Yes Advance Directives Information Provided: No Advance Directives on File: Yes Advance Directives Date on File: 11/18/23 Recently lost weight without trying: No Nutrition Risks: Surgical patient >75years service: Yes Meds Allergies Allergy/AdvReac Type Severity Reaction Status Date / Time alfuzosin Allergy Mild Vomiting Verified 01/23/25 10:56 Home Medications ?Medication ?Instructions ?Recorded ?Confirmed ?Last Taken ?Type atorvastatin 20 mg tablet (Lipitor) 20 mg PO DAILY 08/18/23 01/23/25 03/21/24 History metoprolol succinate 25 mg 25 mg PO DAILY 08/18/23 01/23/25 03/21/24 History tablet,extended release 24 hr (Toprol XL) allopurinol 100 mg tablet 100 mg PO DAILY 01/19/25 01/23/25 Unknown History aspirin 325 mg tablet,delayed 325 mg PO DAILY 01/23/25 01/23/25 01/13/25 History release Exam Height,Weight and Vital Signs: Height 5 ft 5 in Weight 67.358 kg Last Vital Signs Temp 97.3 F 01/23/25 10:54 Pulse 63 01/23/25 10:54 Resp 18 01/23/25 10:54 BP 177/86 H 01/23/25 10:54 Pulse Ox 96 01/23/25 10:54 O2 Del Method Room Air 01/23/25 10:54 Airway Mallampati Class: II TM Dist: >3cm Neck ROM: Poor Heart: RRR Lungs: CTAB Assessment and Plan Assessment Anesthesia Assessment: Anesthesia Plan Discussed and Chart Reviewed Final Anesthetic Review Family History of Problems with Anesthesia: No History of Problems with Anesthesia: No NPO: Yes ASA Class: III Final Preanesthetic Review: No Changes in Pt Med Stat, Meds/Allgs Chart Reviewed, Consent Obtained/Reviewed and Anes Risks/Benef Reviewed Patient Risk: Intermediate Procedure Risk: Intermediate Anesthetic Plan Anesthetic Plan: GA Disposition: Standard PACU
--- NOTE | 2025-01-23 12:44 | P.OP_ITS ---
Operative Note Operative Note Date of Service: 01/23/25 Narrative: PREOP DIAGNOSIS: Bladder cancer, recurrent bladder tumors POSTOP DIAGNOSIS: Bladder cancer, recurrent bladder tumors PROCEDURE: Cystoscopy transurethral resection of bladder tumors, fulguration Anesthesia: General Surgeon Dr. Veena Yun Findings: 4 papillary tumors dome/anterior wall: collectively measuring 2-3 cm, erythematous flat irregularity right lateral wall Details of procedure: The patient was brought into the operating room placed on the OR table in supine position. Antibiotics confirmed.. General anesthesia was administered. The patient was repositioned into lithotomy position, prepped and draped in the usual sterile fashion. Time-out was done per protocol. 2 urojet placed. A 24 Latvian resectoscope was passed transurethrally into the bladder. Visualization of the bladder noted 4 papillary tumors dome/anterior wall: collectively measuring 2-3 cm, erythematous flat irregularity right lateral wall. The loop resectoscope was used to resect the bladder tumors, no evidence of perforation, the loop and roller ball attachment was also used to fulgurate the base of the bladder tumor. Once there was good hemostasis the resectoscope was removed. 2 % urojet placed. A Deleon 20 fr. The patient was brought out of anesthesia and taken to recovery in stable condition. Complications: None EBL: minimal (<5 mL) Drains: [address]
--- NOTE | 2025-01-23 12:44 | MHC.SHP ---
Pre-Procedural Eval Section A - 24 Hr Update-Section A only Date of Service: 01/23/25 The patient is an INPATIENT: No The patient has been examined within 24 hours of the surgical procedure. The History & Physical has been completed within 30 days and I have reviewed it.: Yes Section B - Complete if H&P > 30 days Chief Complaint: Malignant neoplasm of bladder, unspecified Allergies: Allergies Allergy/AdvReac Type Severity Reaction Status Date / Time alfuzosin Allergy Mild Vomiting Verified 01/23/25 10:56 Plan Diagnosis/Plan: Unchanged I have reviewed the history and physical and performed a pertinent physical examination on my patient. No changes have occurred unless specified. Cystoscopy, transurethral resection bladder tumor, cysto biopsies, fulguration. Time Spent With Patient Time: Total time managing care of this patient today ____ minutes.
[2025-01-23] MEDS: ceFAZolin Sodium/Dextrose,Iso 2 GM/50 ML PIGGYBACK IV (13:09)
== END 2025-01-23 15:23 | disposition home or self-care (01) ==
PROVIDERS: PCP Internal Medicine; Visit Provider Urology
PROC: 0TJB8ZZ Inspection of Bladder, Via Natural or Artificial Opening Endoscopic (ICD-10-PCS; CPT 52000; principal; 2025-01-23 12:00)
PROC: 0TBB8ZZ Excision of Bladder, Via Natural or Artificial Opening Endoscopic (ICD-10-PCS; CPT 52235; 2025-01-23 12:00)
DX: C67.8 Malignant neoplasm of overlapping sites of bladder (principal); R31.9 Hematuria, unspecified; R82.89 Other abnormal findings on cytological and histological examination of urine; E11.22 Type 2 diabetes mellitus with diabetic chronic kidney disease; I12.9 Hypertensive chronic kidney disease with stage 1 through stage 4 chronic kidney disease, or unspecified chronic kidney disease; N18.30 Chronic kidney disease, stage 3 unspecified; E78.5 Hyperlipidemia, unspecified; M10.9 Gout, unspecified; I25.10 Atherosclerotic heart disease of native coronary artery without angina pectoris; Z90.49 Acquired absence of other specified parts of digestive tract; Z95.1 Presence of aortocoronary bypass graft; Z79.82 Long term (current) use of aspirin; Z79.899 Other long term (current) drug therapy; Z88.8 Allergy status to other drugs, medicaments and biological substances; Z87.891 Personal history of nicotine dependence
CPT/HCPCS: 52235; 88307; 93005; J0131; J0690; J1596; J2003; J2405; J2704; J3010; Q9967

== ENCOUNTER → 2025-01-23 10:05 | Outpatient (BNV) | payer MEDICARE, MEDICAID, SELFPAY | PROVIDERS: PCP Internal Medicine; Visit Provider Urology | DX: C67.8 Malignant neoplasm of overlapping sites of bladder (principal) | CPT/HCPCS: 52235 ==

== ENCOUNTER 2025-02-05 14:05 | Outpatient (AMB) | payer MEDICARE, MEDICAID, SELFPAY ==
--- NOTE | 2025-02-05 14:12 | A.OFFVIS_ITS ---
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 Accompanied by: Self / Same As Patient Allergies alfuzosin Allergy (Mild, Verified 02/05/25 14:20) Vomiting PFSH Medical History CKD (chronic kidney disease) stage 3, GFR 30-59 ml/min Hyperlipidemia Gout Essential hypertension Diabetes Chronic renal disease Chronic renal insufficiency CAD (coronary artery disease) History of hematuria Surgical History History of transurethral resection of bladder tumor (TURBT) Hx of CABG FH: cholecystectomy Hx of hernia repair History of quadruple bypass Family History Sister Bipolar 1 disorder Mother Cancer Social History Household Members: None Housing: Apartment Are you a primary transitional care manager to a significant other at home: No Do you presently have visiting nurse or other home services: No Alcohol intake: current Alcohol intake frequency: holidays/special occasions only Patient Tobacco Use Status: Former Tobacco user Tobacco use type: Cigar Second Hand Smoke Exposure: No Advance Directives Date on File: 11/18/23 service: Yes Office Procedures Post Void Residual Post Residual Void Post Void Residual (PVR): 29 19776-Boqu Void Residual by ultrasound Results AMB Urinalysis, Automated UA Leukoctes 70 Zoey/uL Last Edit by COURTNEY Gates on 02/05/25 16:45 UA Nitrite Negative Last Edit by COURTNEY Gates on 02/05/25 16:45 UA Urobilinogen 0.2 mg/dL Last Edit by COURTNEY Gates on 02/05/25 16:4 5 UA Protein 15 mg/dL Last Edit by COURTNEY Gates on 02/05/25 16:45 UA pH 5.5 Last Edit by COURTNEY Gates on 02/05/25 16:45 UA Blood 200 Catarino/uL Last Edit by COURTNEY Gates on 02/05/25 16:45 UA Specific Wesson 1.025 Last Edit by COURTNEY Gates on 02/05/25 16: 45 UA Ketone Negative Last Edit by COURTNEY Gates on 02/05/25 16:45 UA Bilirubin 0 mg/dL Last Edit by COURTNEY Gates on 02/05/25 16:45 UA Glucose 0 mg/dL Last Edit by COURTNEY Gates on 02/05/25 16:45 Assessment & Plan Assessment & Plan Orders: Orders AMB Urinalysis Automated Today Z13.9 - Encounter for screening, unspecified Medications: New mirabegron ER (Myrbetriq) 25 mg PO DAILY 30 tabs 5RF Coding CPT Codes Post Residual Void - PVR CPT Code: 94022-[id number] Void Residual by ultrasound ([id number])
--- OUTSIDE RECORDS SUMMARY | 2025-02-05 16:52 | XMS_ITS | Clinical Summary ---
Author Organization [facility] Address [address] [place] [address] Phone Care Team Providers Care Dairy Farm Manager Name Role Phone Myke Silva MD Primary Care Provider [phone] Allergies No known active allergies Medications omeprazole [...] 2 - PCV) 05/24/2015 05/24/2014 Influenza Vaccine (Season Ended) 2025 Hepatitis B Vaccine Aged Out No longe r eligible based on patient's age to complete this topic Insurance MEDICARE MEDICARE Care Teams Dairy Farm Manager Relationship Specialty Start Date End Date Myke Silva MD [address] [place] [address] [id number] MARICRUZ MAHAJAN PCP - General 11/11/20
== END 2025-02-05 15:18 | disposition home or self-care (01) ==
LOC: HO.HUSH 14:06
PROVIDERS: PCP Internal Medicine; Visit Provider Urology
DX: Z13.9 Encounter for screening, unspecified (principal)

== ENCOUNTER → 2025-02-05 14:05 | Outpatient (BNVA) | payer MEDICARE, MEDICAID, SELFPAY | PROVIDERS: PCP Internal Medicine; Visit Provider Urology | DX: D49.4 Neoplasm of unspecified behavior of bladder (principal) | CPT/HCPCS: 51798; 81003; 99212 ==

== ENCOUNTER 2025-03-14 17:30 | Outpatient (REF) | payer MEDICARE, MEDICAID, SELFPAY ==
[2025-03-14 17:38] LABS: Appearance Urine Clear; Color Urine Yellow; Glucose Urine UA Negative (Negative); Leukocyte Esterase Urine Trace (Negative); Nitrite Urine Negative (Negative); PH 5.5 (5.0-9.0); UMIC TRIGGER UA YES; Urine Blood Negative (Negative); Urine Ketones Negative (Negative); Urine Protein Negative (Neg-Trace)
[2025-03-14 17:56] LABS: Bacteria Urine None Seen (None Seen); Hyaline Casts Urine 0-2 /LPF (0-2); RBC Urine 0-2 /HPF (0-2); Squamous Epithelial Cell Urine 0-2 /HPF (0-2)
== END 2025-03-14 17:31 | disposition home or self-care (01) ==
LOC: HO.LNP 17:30
PROVIDERS: Visit Provider Urology
DX: C67.9 Malignant neoplasm of bladder, unspecified (principal)
CPT/HCPCS: 81001

== ENCOUNTER 2025-03-19 10:58 | Outpatient (AMB) | payer MEDICARE, MEDICAID, SELFPAY ==
[2025-03-19 10:23] VITALS: BP 124/70; PULSE 51; TEMP 36.4; O2SAT 97; BMI 24.8
--- NOTE | 2025-03-19 10:23 | MHC.PC.OV ---
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 Accompanied by: Self / Same As Patient Allergies alfuzosin Allergy (Mild, Verified 03/19/25 11:34) Vomiting Medication List - Last Reconciled 03/19/25 by Adam Rodarte MD amlodipine (Norvasc) 5 mg (2 x 2.5 mg) PO DAILY 90 days aspirin 325 mg PO DAILY atorvastatin (Lipitor) 20 mg PO DAILY finasteride 5 mg PO DAILY metoprolol succinate ER (Toprol XL) 25 mg PO DAILY mirabegron ER (Myrbetriq) 25 mg PO DAILY tamsulosin 0.4 mg PO BEDTIME 30 days Tobacco use date assessed: 03/19/25 Fall risk assessment: No Falls in past year Last assessed Fall Risk: 03/19/25 Dental Screening Dental Screen Date: 03/19/25 Did you have a dental visit in the last 12 months?: No Did you have a dental problem in the last 6 months where you did not have access to dental care?: No PFSH Medical History (Updated 03/19/25 @ 11:35 by Adam Rodarte MD) Bladder cancer CKD (chronic kidney disease) stage 3, GFR 30-59 ml/min Hyperlipidemia Gout Essential hypertension Diabetes Chronic renal disease Chronic renal insufficiency CAD (coronary artery disease) History of hematuria Surgical History History of transurethral resection of bladder tumor (TURBT) Hx of CABG FH: cholecystectomy Hx of hernia repair History of quadruple bypass Family History Sister Bipolar 1 disorder Mother Cancer Social History Household Members: None Housing: Apartment Are you a primary director of home care hospice to a significant other at home: No Do you presently have visiting nurse or other home services: No Alcohol intake: current Alcohol intake frequency: holidays/special occasions only Patient Tobacco Use Status: Former Tobacco user Tobacco use type: Cigar e-Cigarette/Vaping Use: Former Use Second Hand Smoke Exposure: No Advance Directives Date on File: 11/18/23 service: Yes Current occupational status: retired Cognitive needs: No Hearing needs: No Vision needs: Yes (rx glasses) Questionnaire PHQ-9 Over the last 2 weeks, how often have you been bothered by any of the following problems? 1. Little interest or pleasure in doing things: not at all 2. Feeling down, depressed, or hopeless: not at all 3. Trouble falling or staying asleep, or sleeping too much: not at all 4. Feeling tired or having little energy: not at all 5. Poor appetite or overeating: not at all 6. Feeling bad about yourself - or that you are a failure or have let yourself or your family down: not at all 7. Trouble concentrating on things, such as reading the newspaper or watching television: not at all 8. Moving or speaking so slowly that other people could have noticed. Or the opposite - being so fidgety or restless that you have been moving around a lot more than usual: not at all 9. Thoughts that you would be better off or of hurting yourself in some way: not at all Total score: 0 Depression Screening Interpretation: Negative Depression Screening Done: Yes Source: Developed by Drs. Cy Jasso, Iris Jackson, Brett Clemons and colleagues, with an educational shawna from [employer]. Thrive Questionnaire Date Thrive assessed: 03/19/25 I am a: Patient Within the past 12 months, did the food you bought not last and you didn't have the money to get more?: Never true Within the past 12 months, did you worry whether your food would run out before you got money to buy more?: Never true Do you have trouble paying for medicines?: No Do you have trouble getting transportation to medical appointments?: No Do you have trouble paying your heating and electricity bill?: No Do you have trouble taking care of your child, family member or friend?: No Do you have trouble with day-to-day activities such as bathing, preparing meals, shopping, managing finances, etc.?: No Are you currently unemployed and looking for a job?: No Are you interested in more education?: No Currently or been in a relationship where the following occur: No concerns reported THRIVE Score: 0 AUDIT C Alcohol Use Questionnaire (AUDIT-C) 1. How often do you have a drink containing alcohol?: Monthly or less 2. How many drinks containing alcohol do you have on a typical day when you are drinking?: 1 or 2 3. How often do you have six or more drinks on one occasion?: Less than monthly Total Score: 2 REYES-7 AMB Questionnaire REYES-7 Date REYES - 7 assessed: 03/19/25 Feeling nervous, anxious, or on edge: 0 = Not at all Not being able to stop or control worryin = Not at all Worrying too much about different things: 0 = Not at all Trouble relaxin = Not at all Being so restless that it is hard to sit still: 0 = Not at all Becoming easily annoyed or irritable: 0 = Not at all Feeling afraid as if something awful might happen: 0 = Not at all Total REYES-7 score (0-4 normal; 5-9 mild; 10-14 moderate; 15-21 severe): 0 Source: Developed by Drs. Cy Jasso, Iris Jackson, Brett Clemons and colleagues, with an educational shawna from [employer]. Physical exam (Primary Care) Vital Signs: Last Vital Signs Temp 97.6 F 03/19/25 10:23 Pulse 51 03/19/25 10:23 BP 124/70 03/19/25 10:23 Pulse Ox 97 03/19/25 10:23 Oxygen Delivery Method Room Air 03/19/25 10:23 Care Plan Goal for BP management: BP is in range BMI result Body Mass Index 24.8 Tobacco/Smoking Status: Tobacco use Status Tobacco use date assessed 03/19/25 03/19/25 10:25 Patient Tobacco Use Status Former Tobacco user 03/19/25 10:25 Tobacco use type Cigar 03/19/25 10:25 e-Cigarette/Vaping Use Former Use 03/19/25 10:25 PHQ-9: PHQ-9 Score PHQ-9: Total score 0 03/19/25 11:17 Depression Screening Interpretation: Negative Thrive Assessment: Date of Thrive Assessment Date Thrive assessed 03/19/25 03/19/25 10:25 Currently or been in a relationship where the following occur: No concerns reported Advance Care Planning discussion: Exists, not on file Date of discussion: 03/19/25 Who was present: Patient Forms completed: Health Care Proxy Coding Level of Care Code New Pt Level 4 (32155) Complex EM visit Add On G2211 Diagnoses Bladder cancer C67.9 Primary hypertension I10 Hypertension type: primary hypertension Additional Codes Vital Signs *Quality* - Advance Care Planning discussion: Exists, not on file ([id number]) Assessment & Plan Assessment & Plan (1) Bladder cancer: Code(s): C67.9 - Malignant neoplasm of bladder, unspecified Category: Medical Plan: Continue current intravesicular chemotherapy (2) Hypertension: Code(s): I10 - Essential (primary) hypertension Category: Medical Qualifiers: Hypertension type: primary hypertension Qualified Code(s): I10 - Essential (primary) hypertension Plan: BP is in range. Continue current medications Plan History of Present Illness The patient is an 89-year-old male presenting with a history of bladder cancer, which is managed through chemotherapy. The current regimen involves a two-drug combination following the previous use of germicidal infusion, reflecting his second chemotherapy cycle post-surgery two months ago. Over the last 18 months, the patient faced three episodes of cancer recurrence, highlighting a challenging treatment course. Concurrent with cancer management, the patient has essential hypertension. Initially controlled with hydrochlorothiazide, his blood pressure readings exhibit significant variations depending on the clinical setting, suggestive of white coat hypertension. This variability is particularly noted during medical visits and procedures, with readings at times reaching 180/80 mmHg, but normalizing to as low as 160/80 mmHg. Encouragingly, his blood glucose control is stable with an A1c between 5.9 and 6.0. 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 - Living situation: Lives alone. - Family: Has a daughter working at a hospital. - Driving: Drives and can handle nighttime driving. - Previous involvement and connections within his community: Networked through family relations and has past professional acquaintances. Review of Systems - Cardiovascular: Reports fluctuation in blood pressure readings. - Genitourinary: Reports undergoing chemotherapy for bladder cancer. - Endocrine: Denies problems with blood sugar control, with stable A1c levels reported. Physical Exam General: Cooperative and healthy appearing Nutritional Appearance: Well nourished Orientation/consciousness: Patient oriented x3 Limitations: No limitations Head: Normal to inspection General: Appearance normal, both eyes and all related structures Neck: Normal visual inspection Chest: Normal palpation of entire chest wall Respiratory: Breathe in. Breathe out. Breathe in. Breathe out. Breathe in. Breathe out. Breathe in. ormal respiratory effort Neurology: Patient oriented x3 Results - Labs: A1c consistently between 5.9 and 6.0. Plan 1. Bladder Cancer - Continue with chemotherapy as per current regimen. - Coordinate follow-up care with oncologist. - Monitor treatment side effects through lab work. 2. Essential Hypertension - Monitor blood pressure consistently. - Note white coat hypertension possibility. - Discontinue hydrochlorothiazide, reassess efficacy during follow-up in six months. Discussion Notes During the visit, we discussed the management plan for the patient?s ongoing chemotherapy. The patient is currently on his third infusion of a newly adjusted chemotherapy regimen aimed at treating his recurrent bladder cancer. We reviewed his substantial treatment history, including past surgery and prior medication adjustments. The conversation also addressed his hypertension management; although the blood pressure variability and potential white coat hypertension were discussed, immediate adjustments in medication were made, discontinuing hydrochlorothiazide. Follow-up appointments for both conditions were planned accordingly. Patient Instructions - Continue chemotherapy as scheduled and report any side effects to your oncologist. - Monitor blood pressure at home, noting any significant changes. - Avoid stress where possible to help manage blood pressure. - Maintain a stable diet to support consistent blood glucose levels. - Attend scheduled follow-up visits with oncological and primary care teams. - Reach out if experiencing any new symptoms, concerns, or side effects urgently.
--- OUTSIDE RECORDS SUMMARY | 2025-03-19 11:42 | XMS_ITS | Clinical Summary ---
Author Organization [facility] Address [address] [place] [address] Phone Care Team Providers Care Family Dinner Service Specialist Name Role Phone Myke Silva MD Primary Care Provider [phone] Allergies No known active allergies Medications omeprazole [...] 0 02/09/2021 Hyposmolality and/or hyponatremia 02/09/2021 Immunizations Immunization Administration Dates Next Due Pneumococcal Polysaccharide 05/24/2014 [...] Due Date Last Done Comments Pneumococcal Vaccine: 50+ Ye ars (2 of 2 - PCV) 05/24/2015 05/24/2014 Influenza Vaccine (Season Ended) 2025 Pneumococcal Vaccine: Peds ( 0 to 5 Years) and At-Risk Patients (6 to 49 Years) Discontinued 05/24/2014 Hepatitis B Vaccine Aged Out No longe r eligible based on patient's age to complete this topic Insurance Medicare Medicare Care Teams Family Dinner Service Specialist Relationship Specialty Start Date End Date Myke Silva MD [id number] MARICRUZ MAHAJAN PCP - General 11/11/20
== END 2025-03-19 11:32 | disposition home or self-care (01) ==
LOC: HO.HMCHD 10:58
PROVIDERS: PCP Internal Medicine; Visit Provider Internal Medicine
DX: I10 Essential (primary) hypertension (principal); C67.9 Malignant neoplasm of bladder, unspecified; Z00.00 Encounter for general adult medical examination without abnormal findings

== ENCOUNTER → 2025-03-19 10:58 | Outpatient (BNVA) | payer MEDICARE, MEDICAID, SELFPAY | PROVIDERS: PCP Internal Medicine; Visit Provider Internal Medicine | DX: C67.9 Malignant neoplasm of bladder, unspecified (principal); I10 Essential (primary) hypertension | CPT/HCPCS: 99202 ==

== ENCOUNTER 2025-05-07 08:25 | Outpatient (REF) | payer MEDICARE, MEDICAID, SELFPAY | END 2025-05-07 08:26 | disposition home or self-care (01) | LOC: HO.LAB 08:25 | PROVIDERS: PCP Internal Medicine; Visit Provider Urology | DX: N18.32 Chronic kidney disease, stage 3b (principal); D49.4 Neoplasm of unspecified behavior of bladder; N40.1 Benign prostatic hyperplasia with lower urinary tract symptoms; Z13.9 Encounter for screening, unspecified; R31.9 Hematuria, unspecified | CPT/HCPCS: 51798; 81003; 88112; 99212 ==

== ENCOUNTER 2025-05-07 08:25 | Outpatient (AMB) | payer MEDICARE, MEDICAID, SELFPAY ==
--- NOTE | 2025-05-06 15:05 | A.OFFVIS_ITS ---
Intake Visit Reasons: follow up/oncology Intake Note: Patient presents to office today for a follow up/Oncology Urology Med: Finasteride, Tamsulosin, Myrbetriq Antibiotic Allergy: None Blood Thinner: Aspirin PVR:0ml Russian Language Professor Required: No Accompanied by: Self / Same As Patient Allergies alfuzosin Allergy (Mild, Verified 05/07/25 08:43) Vomiting Medication List - Last Reconciled 05/07/25 by Veena Yun MD amlodipine (Norvasc) 5 mg (2 x 2.5 mg) PO DAILY 90 days aspirin 325 mg PO DAILY atorvastatin (Lipitor) 20 mg PO DAILY finasteride 5 mg PO DAILY metoprolol succinate ER (Toprol XL) 25 mg PO DAILY mirabegron ER (Myrbetriq) 25 mg PO DAILY tamsulosin 0.4 mg PO BEDTIME 30 days HPI Comments Details: 05/07/25--Buck is an 89-year-old male initially diagnosed 11/16/2023, [id number] urothelial carcinoma noninvasive. had repeat TURBT on 03/21/2024, followed by gemcytobine bladder instillations, s/p repeat Cysto TURBT on 01/23/25- multiple biopsies - Papillary urothelial carcinoma, noninvasive, Low-grade. Completed Bladder instillations, Mytomycin-C and Cytarabine x 6 weeks. failed Gemcytobine completed 06/2024 Plan urine for cytology, schedule office cystoscopy 6 W History of Present Illness - The patient is an 89-year-old male presenting with management of recurrent low grade urothelial carcinoma. - Initially diagnosed with low grade urothelial carcinoma on 11/16/2023. - Underwent transurethral resection of bladder tumor on 03/21/24, which showed recurrent lesions. - Treated with gemcitabine bladder installations, 6 treatments. - Surveillance cystoscopy noted recurrence, leading to another transurethral resection on 01/23/25. - Pathology confirmed papillary urothelial carcinoma, noninvasive, low grade. - Due to multiple recurrences, treated with mitomycin C and cytarabine bladder installations, 6 treatments. - History of benign prostatic hyperplasia, treated with tamsulosin and finasteride. - Last PSA was 2.67 on 08/28/22. 02/05/25--s/p repeat Cysto TURBT on 01/23/25- multiple biopsies - Papillary urothelial carcinoma, noninvasive, Low-grade. Pt states he is doing well. Plan Bladder instillations, Mytomycin-c and Cytarabine x 6 weeks. 11/27/24--89-year-old male initially diagnosed 11/16/2023, [id number] urothelial carcinoma noninvasive. Status post repeat TURBT on 03/21/2024, small papillary tumors noted on the right lateral wall lateral to the trigone;pathology results low-grade noninvasive urothelial carcinoma. Completed gemcitabine bladder installations. Last cystoscopy 08/24/2024- no suspicious lesions. Here for 3 month surveillance office cystoscopy. Cystoscopy findings: Small papillary lesions posterior wall. Plan will send urine for cytology. CT urogram. Follow-up cystoscopy TURBT with possible bilateral retrogrades/ureteroscopy. 08/24/2024--89-year-old male initially diagnosed 11/16/2023, low-grade urothelial carcinoma noninvasive. Status post repeat TURBT on 03/21/2024. Small papillary tumors noted on the right lateral wall lateral to the trigone. Pathology results low-grade noninvasive urothelial carcinoma. Completed gemcitabine bladder installations. Here for office cystoscopy. He states since on dual med for prostate he has a stronger flow. Cystoscopy findings: prostatic urethra trilobar enlargement, bulbous urethra WNL. 2 small </1-2 mm Papillary bladder tumors (posterior wall in a small diverticula) and right anterior lateral wall. Will monitor for now. FU in 3 months/cystoscopy. 06/21/24--here for follow-up. He states that he had his 1st bladder instillation of gemcitabine but was not able to keep the medication in the bladder for more than 20-30 minutes. I have discussed that we will try oxybutynin 5 mg day before the procedure day of the procedure in Pyridium 100 mg night before the procedure to see if this will decrease the bladder spasms. 04/17/24--Buck is an 88-year-old male status post repeat TURBT on 03/21/2024. Small papillary tumors noted on the right lateral wall lateral to the trigone. Pathology results low-grade noninvasive urothelial carcinoma. Random bladder biopsies benign. I have discussed gemcitabine and BCG bladder installations. [facility] does not have BCG available. The patient asks excellent questions and his questions were answered. 30 minutes spent in review of records pertaining to this visit and including [id number] discussion with the patient and documentation of this visit. 03/02/24--Buck is an 88-year-old male who presents today for a follow-up surveillance office cystoscopy. Diagnosed with bladder cancer status post TURBT 11/16/2023, low-grade urothelial carcinoma noninvasive. Followed for BPH on finasteride and tamsulosin. He was initially started on alfuzosin but had vomiting and upset stomach. Followed by nephrology for chronic kidney disease. Office cystoscopy-recurrent papillary bladder tumor </= 2 cm posterior wall, erythematous flattened changes right lateral wall. Will send urine for cytology. Plan discussed repeat cysto TURBT and bladder biopsies. Preop labs chemistry, CBC, EKG, stop aspirin 10 days. 12/02/23--status post cystoscopy TURBT- 11/16/2023--the patient is here with his family and I reviewed the pathology results low-grade urothelial carcinoma noninvasive muscularis propria was not the specimen. The patient presented to the emergency room after discharge due to calf pain and was ruled out for DVT but noted to have acute kidney injury he was hydrated and had medication adjustments with improvement in his kidney function. He was discharged on alfuzosin. He states he is voiding well except for increased urinary urgency every 1-1/2 hours. Bladder scan PVR 33 mL. Plan: Finasteride, alfuzosin, Surveillance cystoscopy every 3 months 09/22/2023 Cystoscopy procedure performed. Cystoscopy findings: office cystoscopy noted a papillary bladder tumor in the right lateral wall which is suspicious appearing. 09/16/23--CT findings -no acute findings in the urinary tract noted on study. [facility] Medical History Bladder cancer CKD (chronic kidney disease) stage 3, GFR 30-59 ml/min Hyperlipidemia Gout Essential hypertension Diabetes Chronic renal disease Chronic renal insufficiency CAD (coronary artery disease) History of hematuria Surgical History History of transurethral resection of bladder tumor (TURBT) Hx of CABG FH: cholecystectomy Hx of hernia repair History of quadruple bypass Family History Sister Bipolar 1 disorder Mother Cancer Social History Household Members: None Housing: Apartment Are you a primary insurance healthcare consultant to a significant other at home: No Do you presently have visiting nurse or other home services: No Alcohol intake: current Alcohol intake frequency: holidays/special occasions only Patient Tobacco Use Status: Former Tobacco user Tobacco use type: Cigar e-Cigarette/Vaping Use: Former Use Second Hand Smoke Exposure: No Advance Directives Date on File: 11/18/23 service: Yes Current occupational status: retired Cognitive needs: No Hearing needs: No Vision needs: Yes (rx glasses) Review of Systems Const All systems reviewed & are unremarkable except as noted in HPI and below Reports no additional complaints Eyes Reports no additional complaints ENT Reports no additional complaints Card Reports no additional complaints Resp Reports no additional complaints GI Reports no additional complaints Reports as per HPI Musc Reports no additional complaints Skin/Breast Reports system reviewed and no additional complaints, except as documented Neuro Reports no additional complaints Psych Reports no additional complaints Endo Reports no additional complaints Dell/Lymph Reports no additional complaints Aller/Immun Reports no additional complaints Assessment & Plan Assessment & Plan (1) Bladder neoplasm: Code(s): D49.4 - Neoplasm of unspecified behavior of bladder Category: Medical (2) CKD (chronic kidney disease) stage 3, GFR 30-59 ml/min: Code(s): N18.30 - Chronic kidney disease, stage 3 unspecified Category: Medical Qualifiers: Chronic kidney disease stage 3 subtype: stage 3b (GFR 30-44) Qualified Code(s): N18.32 - Chronic kidney disease, stage 3b (3) BPH loc w urin obs/LUTS: Code(s): N40.1 - Benign prostatic hyperplasia with lower urinary tract symptoms Category: Medical Plan Plan - Send urine for cytology. - Schedule office cystoscopy in 6 weeks for further evaluation. - Continue current medications: tamsulosin, finasteride, and mirabegron. - Refer to oncology for further evaluation and management to prevent recurrence of bladder lesions. Orders: Referrals Hematology & Oncology Referral D49.4 - Neoplasm of unspecified behavior of bladder Medications: Resumed aspirin 325 mg PO DAILY Patient Instructions: The patient had an opportunity to ask questions regarding treatment plan. The patient expressed understanding and agreement with the above treatment plan. The patient is aware they should contact our office by phone for worsening of their current condition or the appearance of new symptoms. Compliance is encouraged with any medications and followup testing that is ordered. It is a privilege to be allowed the opportunity to participate in the urologic care of your patient. If you have any questions or concerns regarding treatment for the above conditions please do not hesitate to contact me. The office telephone contact is [phone]. This note is constructed in part using voice recognition software. While every effort has been made to ensure accuracy supervisor delivery department errors may have been included. Yours sincerely, Veena Yun MD Scribe Plan - Not visible on output: Patient was informed and verbally consented to the use of an ambient scribe for clinic note documentation during this visit. Coding Level of Care Code Est Pt Level 4 (90365) Complex EM visit Add On G2211 Diagnoses Bladder neoplasm D49.4 Stage 3b chronic kidney disease N18.32 Chronic kidney disease stage 3 subtype: stage 3b (GFR 30-44) BPH loc w urin obs/LUTS N40.1
--- OUTSIDE RECORDS SUMMARY | 2025-05-07 08:35 | XMS_ITS | Patient Health Record ---
Author Organization [facility] Address [address] [place] [id number] Care Team Providers Care Black Belt Name Role Phone Cy Corea Unavailable [phone] Reason For Referral No Information Plan Of Treatment No Information
--- OUTSIDE RECORDS SUMMARY | 2025-05-07 08:35 | XMS_ITS | Clinical Summary ---
Author Organization [facility] Address [address] [place] [address] Phone Care Team Providers Care Veneer Glue Spreader Name Role Phone Myke Silva MD Primary Care Provider Allergies No known active allergies Medications omeprazole [...] - PCV) 05/24/2015 05/24/2014 Influenza Vaccine (#1) 2025 Pneumococcal Vaccine: Peds ( 0 to 5 Years) and At-Risk Patients (6 to 49 Years) Discontinued 05/24/2014 Hepatitis B Vaccine Aged Out No longe r eligible based on patient's age to complete this topic Insurance Medicare Medicare Care Teams Veneer Glue Spreader Relationship Specialty Start Date End Date Myke Silva MD [id number] MARICRUZ MAHAJAN PCP - General 11/11/20
== END 2025-05-07 09:16 | disposition home or self-care (01) ==
LOC: HO.HUSH 08:26
PROVIDERS: PCP Internal Medicine; Visit Provider Urology
DX: D49.4 Neoplasm of unspecified behavior of bladder (principal); N18.32 Chronic kidney disease, stage 3b; N40.1 Benign prostatic hyperplasia with lower urinary tract symptoms; Z13.9 Encounter for screening, unspecified
CPT/HCPCS: 99214; G2211

== ENCOUNTER → 2025-05-11 13:02 | Outpatient (BNV) | payer MEDICARE, MEDICAID, SELFPAY | PROVIDERS: PCP Internal Medicine; Visit Provider Internal Medicine Medical Oncology | DX: C67.9 Malignant neoplasm of bladder, unspecified (principal) | CPT/HCPCS: 99204 ==

== ENCOUNTER 2025-06-29 08:51 | Outpatient (AMB) | payer MEDICARE, MEDICAID, SELFPAY ==
--- NOTE | 2025-06-29 08:54 | A.OFFVIS_ITS ---
Intake Visit Reasons: Cysto Intake Note: Patient presents to office today for: cystoscopy Urology Med: Finasteride, Tamsulosin, Myrbetriq Blood Thinner: Aspirin Heavy Equipment Supervisor Required: No Accompanied by: Spouse Allergies alfuzosin Allergy (Mild, Verified 07/04/25 09:29) Vomiting HPI Comments Details: 06/29/25----Buck is an 89-year-old male initially diagnosed 11/16/2023, [id number] urothelial carcinoma noninvasive. had repeat TURBT on 03/21/2024, followed by gemcytobine bladder instillations, failed Gemcytobine completed 06/2024--s/p repeat Cysto TURBT on 01/23/25- multiple biopsies - Papillary urothelial carcinoma, noninvasive, Low-grade. Completed Bladder instillations, Mytomycin-C and Cytarabine x 6 weeks. --Here for office cystoscopy--cystoscopy findings no new papillary lesions, mild inflammatory changes noted. I discussed proceeding with Keytruda with Oncology due to multiple recurrences. The patient declines Keytrude at this time. Will proceed with repeat Mytomycin C and Cytarabine. 05/07/25--Buck is an 89-year-old male initially diagnosed 11/16/2023, [id number] urothelial carcinoma noninvasive. had repeat TURBT on 03/21/2024, followed by gemcytobine bladder instillations, s/p repeat Cysto TURBT on 01/23/25- multiple biopsies - Papillary urothelial carcinoma, noninvasive, Low-grade. Completed Bladder instillations, Mytomycin-C and Cytarabine x 6 weeks. failed Gemcytobine completed 06/2024 Plan urine for cytology, schedule office cystoscopy 6 W History of Present Illness - The patient is an 89-year-old male presenting with management of recurrent low grade urothelial carcinoma. - Initially diagnosed with low grade urothelial carcinoma on 11/16/2023. - Underwent transurethral resection of bladder tumor on 03/21/24, which showed recurrent lesions. - Treated with gemcitabine bladder installations, 6 treatments. - Surveillance cystoscopy noted recurrence, leading to another transurethral resection on 01/23/25. - Pathology confirmed papillary urothelial carcinoma, noninvasive, low grade. - Due to multiple recurrences, treated with mitomycin C and cytarabine bladder installations, 6 treatments. - History of benign prostatic hyperplasia, treated with tamsulosin and finasteride. - Last PSA was 2.67 on 08/28/22. 02/05/25--s/p repeat Cysto TURBT on 01/23/25- multiple biopsies - Papillary urothelial carcinoma, noninvasive, Low-grade. Pt states he is doing well. Plan Bladder instillations, Mytomycin-c and Cytarabine x 6 weeks. 11/27/24--89-year-old male initially diagnosed 11/16/2023, [id number] urothelial carcinoma noninvasive. Status post repeat TURBT on 03/21/2024, small papillary tumors noted on the right lateral wall lateral to the trigone;pathology results low-grade noninvasive urothelial carcinoma. Completed gemcitabine bladder installations. Last cystoscopy 08/24/2024- no suspicious lesions. Here for 3 month surveillance office cystoscopy. Cystoscopy findings: Small papillary lesions posterior wall. Plan will send urine for cytology. CT urogram. Follow-up cystoscopy TURBT with possible bilateral retrogrades/ureteroscopy. 08/24/2024--89-year-old male initially diagnosed 11/16/2023, low-grade urothelial carcinoma noninvasive. Status post repeat TURBT on 03/21/2024. Small papillary tumors noted on the right lateral wall lateral to the trigone. Pathology results low-grade noninvasive urothelial carcinoma. Completed gemcitabine bladder installations. Here for office cystoscopy. He states since on dual med for prostate he has a stronger flow. Cystoscopy findings: prostatic urethra trilobar enlargement, bulbous urethra WNL. 2 small </1-2 mm Papillary bladder tumors (posterior wall in a small diverticula) and right anterior lateral wall. Will monitor for now. FU in 3 months/cystoscopy. 06/21/24--here for follow-up. He states that he had his 1st bladder instillation of gemcitabine but was not able to keep the medication in the bladder for more than 20-30 minutes. I have discussed that we will try oxybutynin 5 mg day before the procedure day of the procedure in Pyridium 100 mg night before the procedure to see if this will decrease the bladder spasms. 04/17/24--Buck is an 88-year-old male status post repeat TURBT on 03/21/2024. Small papillary tumors noted on the right lateral wall lateral to the trigone. Pathology results low-grade noninvasive urothelial carcinoma. Random bladder biopsies benign. I have discussed gemcitabine and BCG bladder installations. [facility] does not have BCG available. The patient asks excellent questions and his questions were answered. 30 minutes spent in review of records pertaining to this visit and including [id number] discussion with the patient and documentation of this visit. 03/02/24--Buck is an 88-year-old male who presents today for a follow-up surveillance office cystoscopy. Diagnosed with bladder cancer status post TURBT 11/16/2023, low-grade urothelial carcinoma noninvasive. Followed for BPH on f inasteride and tamsulosin. He was initially started on alfuzosin but had vomiting and upset stomach. Followed by nephrology for chronic kidney disease. Office cystoscopy-recurrent papillary bladder tumor </= 2 cm posterior wall, erythematous flattened changes right lateral wall. Will send urine for cytology. Plan discussed repeat cysto TURBT and bladder biopsies. Preop labs chemistry, CBC, EKG, stop aspirin 10 days. 12/02/23--status post cystoscopy TURBT- 11/16/2023--the patient is here with his family and I reviewed the pathology results low-grade urothelial carcinoma noninvasive muscularis propria was not the specimen. The patient presented to the emergency room after discharge due to calf pain and was ruled out for DVT but noted to have acute kidney injury he was hydrated and had medication adjustments with improvement in his kidney function. He was discharged on alfuzosin. He states he is voiding well except for increased urinary urgency every 1-1/2 hours. Bladder scan PVR 33 mL. Plan: Finasteride, alfuzosin, Surveillance cystoscopy every 3 months 09/22/2023 Cystoscopy procedure performed. Cystoscopy findings: office cystoscopy noted a papillary bladder tumor in the right lateral wall which is suspicious appearing. 09/16/23--CT findings -no acute findings in the urinary tract noted on study. [facility] Medical History Bladder cancer CKD (chronic kidney disease) stage 3, GFR 30-59 ml/min Hyperlipidemia Gout Essential hypertension Diabetes Chronic renal disease Chronic renal insufficiency CAD (coronary artery disease) History of hematuria Surgical History History of transurethral resection of bladder tumor (TURBT) Hx of CABG FH: cholecystectomy Hx of hernia repair History of quadruple bypass Family History Sister Bipolar 1 disorder Mother Cancer Social History Household Members: None Housing: Apartment Are you a primary care transition manager to a significant other at home: No Do you presently have visiting nurse or other home services: No Alcohol intake: current Alcohol intake frequency: holidays/special occasions only Patient Tobacco Use Status: Former Tobacco user Tobacco use type: Cigar e-Cigarette/Vaping Use: Former Use Second Hand Smoke Exposure: No Advance Directives Date on File: 11/18/23 service: Yes Current occupational status: retired Cognitive needs: No Hearing needs: No Vision needs: Yes (rx glasses) Review of Systems Const All systems reviewed & are unremarkable except as noted in HPI and below Reports no additional complaints Eyes Reports no additional complaints ENT Reports no additional complaints Card Reports no additional complaints Resp Reports no additional complaints GI Reports no additional complaints Reports as per HPI Musc Reports no additional complaints Skin/Breast Reports system reviewed and no additional complaints, except as documented Neuro Reports no additional complaints Psych Reports no additional complaints Endo Reports no additional complaints Dell/Lymph Reports no additional complaints Aller/Immun Reports no additional complaints Office Procedures Cystoscopy Consent Discussed risk and benefit or proposed procedure with the patient. Information consent for procedure given to the patient. Discussed technical aspects, risks, benefits and alternatives in full. Addressed all of the patient's questions and concerns regarding the procedure. The patient demonstrated knowledge and understanding. They wish to proceed with this procedure. Preparation The patient was prepped in the usual manner. A clipper machine operator was present and in the room. Genitalia was prepped with betadine solution in a sterile manner. Lidocaine Jelly 2% was placed into the urethra and 16Fr flexible Olympus cysto scope was inserted into the meatus after adequate lubrication. Procedure Time out per protocol performed. The flexible cystoscope is passed transurethrally: The bladder was inspected in its entirety with utilization retroflexion displaying: Tumor(s): no suspicious bladder lesions visualized Trabeculation: Mild to Moderate with cellule changes Mucosal Erthema: Orifices: normal shape and position Urethra: normal Cystoscopy findings: no recurrent papillary lesions visualized 03177-Uyepocdran DISPOSABLE SCOPE URO-G FLEXIBLE SCOPE Procedure code (CPT) selection complete Post Void Residual Post Residual Void Post Void Residual (PVR): 14 [id number]-[id number] Void Residual by ultrasound Office Meds lidocaine HCl 2 % mucosal jelly in applicator Performing Provider: Veena Yun MD Performing Location: [facility] Administered by: Jessenia De La Garza RN on 06/29/25 09:12 Dose Route Admin Location Dispensed Lot Number Expiration Date NDC Cruise Counselor 10 mL intra-urethral 20 mL ciprofloxacin HCl 500 mg tablet Performing Provider: Veena Yun MD Performing Location: [facility] Administered by: Jessenia De La Garza RN on 06/29/25 09:12 Dose Route Admin Location Dispensed Lot Number Expiration Date NDC Cruise Counselor 500 mg PO 1 tab phenazopyridine 200 mg tablet Performing Provider: Veena Yun MD Performing Location: [facility] Administered by: Jessenia De La Garza RN on 06/29/25 09:12 Dose Route Admin Location Dispensed Lot Number Expiration Date NDC Cruise Counselor 200 mg PO 1 tab Results AMB Urinalysis, Automated UA Leukoctes 0 Zoey/uL Last Edit by COURTNEY Chapman on 06/29/25 09:06 UA Nitrite Negative Last Edit by COURTNEY Chapman on 06/29/25 09:06 UA Urobilinogen 3.5 mg/dL Last Edit by COURTNEY Chapman on 06/29/25 09:0 6 UA Protein 0 mg/dL Last Edit by COURTNEY Chapman on 06/29/25 09:06 UA pH 5.5 Last Edit by COURTNEY Chapman on 06/29/25 09:06 UA Blood 25 Catarino/uL Last Edit by COURTNEY Chapman on 06/29/25 09:06 UA Specific Jasper 1.020 Last Edit by COURTNEY Chapman on 06/29/25 09: 06 UA Ketone Negative Last Edit by COURTNEY Chapman on 06/29/25 09:06 UA Bilirubin 0 mg/dL Last Edit by COURTNEY Chapman on 06/29/25 09:06 UA Glucose 30 mg/dL Last Edit by COURTNEY Chapman on 06/29/25 09:06 Results Reviewed Results Reviewed: Laboratory Last Values Urine pH (Auto) 5.5 06/29/25 09:05 Specific Jasper (Auto) 1.020 06/29/25 09:05 Urine Protein (Auto) 0 mg/dL 06/29/25 09:05 Glucose (UA)(Auto) 30 mg/dL 06/29/25 09:05 Urine Ketones (Auto) Negative 06/29/25 09:05 Urine Blood (Auto) 25 Catarino/uL 06/29/25 09:05 Urine Nitrite (Auto) Negative 06/29/25 09:05 Urine Bilirubin (Auto) 0 mg/dL 06/29/25 09:05 Urine Urobilinogen (Auto) 3.5 mg/dL 06/29/25 09:05 Leukocyte Esterase (Auto) 0 Zoey/uL 06/29/25 09:05 Assessment & Plan Assessment & Plan (1) Bladder neoplasm: Code(s): D49.4 - Neoplasm of unspecified behavior of bladder Category: Medical (2) CKD (chronic kidney disease) stage 3, GFR 30-59 ml/min: Code(s): N18.30 - Chronic kidney disease, stage 3 unspecified Category: Medical Qualifiers: Chronic kidney disease stage 3 subtype: stage 3b (GFR 30-44) Qualified Code(s): N18.32 - Chronic kidney disease, stage 3b (3) BPH loc w urin obs/LUTS: Code(s): N40.1 - Benign prostatic hyperplasia with lower urinary tract symptoms Category: Medical Plan Will proceed with repeat Mytomycin C and Cytarabine. Orders: Orders AMB Urinalysis Automated 06/29/25 Z13.9 - Encounter for screening, unspecified Urine Cytology 06/29/25 N39.0 - Urinary tract infection, site not specified AMB Cystoscopy 06/29/25 C67.9 - Malignant neoplasm of bladder, unspecified AMB Post Void Residual by ultrasound 06/29/25 N40.1 - Benign prostatic hyperplasia with lower urinary tract symptoms Patient Instructions: The patient had an opportunity to ask questions regarding treatment plan. The patient expressed understanding and agreement with the above treatment plan. The patient is aware they should contact our office by phone for worsening of their current condition or the appearance of new symptoms. Compliance is encouraged with any medications and followup testing that is ordered. It is a privilege to be allowed the opportunity to participate in the urologic care of your patient. If you have any questions or concerns regarding treatment for the above conditions please do not hesitate to contact me. The office telephone contact is [phone]. This note is constructed in part using voice recognition software. While every effort has been made to ensure accuracy supply chain engineer errors may have been included. Yours sincerely, Veena Yun MD Coding Level of Care Code Procedure Only Diagnoses Bladder neoplasm D49.4 Stage 3b chronic kidney disease N18.32 Chronic kidney disease stage 3 subtype: stage 3b (GFR 30-44) BPH loc w urin obs/LUTS N40.1 CPT Codes Cystoscopy - CPT: 45930-Xbpuldfflc ([id number]) Post Residual Void - PVR CPT Code: 46139-Ldew Void Residual by ultrasound ([id number])
--- OUTSIDE RECORDS SUMMARY | 2025-06-29 09:43 | XMS_ITS | Patient Health Record ---
Author Organization [facility] Address [address] [place] [id number] Care Team Providers Care Weather Clerk Name Role Phone Cy Corea Unavailable [phone] Reason For Referral No Information Plan Of Treatment No Information
--- OUTSIDE RECORDS SUMMARY | 2025-06-29 09:43 | XMS_ITS | Clinical Summary ---
Author Organization [facility] Address [address] [place] [address] Phone Care Team Providers Care Production Team Member Name Role Phone Myke Silva MD Primary Care Provider [phone] Allergies No known active allergies Medications omeprazole [...] this topic Insurance Medicare Medicare Care Teams Production Team Member Relationship Specialty Start Date End Date Myke Silva MD [address] [place] PCP - General 11/11/20
== END 2025-06-29 10:18 | disposition home or self-care (01) ==
LOC: HO.HUSH 08:52
PROVIDERS: PCP Internal Medicine; Visit Provider Urology
DX: C67.9 Malignant neoplasm of bladder, unspecified (principal); Z13.9 Encounter for screening, unspecified
CPT/HCPCS: 52000

== ENCOUNTER → 2025-06-29 08:51 | Outpatient (BNVA) | payer MEDICARE, MEDICAID, SELFPAY | PROVIDERS: PCP Internal Medicine; Visit Provider Urology | DX: C67.9 Malignant neoplasm of bladder, unspecified (principal); N18.32 Chronic kidney disease, stage 3b; N40.1 Benign prostatic hyperplasia with lower urinary tract symptoms; Z13.9 Encounter for screening, unspecified | CPT/HCPCS: 51798; 52000; 81003 ==

== ENCOUNTER 2025-06-29 16:27 | Outpatient (REF) | payer MEDICARE, MEDICAID, SELFPAY | END 2025-06-29 16:28 | disposition home or self-care (01) | LOC: HO.LNP 16:27 | PROVIDERS: Visit Provider Urology | DX: N39.0 Urinary tract infection, site not specified (principal); Z13.89 Encounter for screening for other disorder | CPT/HCPCS: 88112 ==

== ENCOUNTER 2025-07-03 10:41 | Outpatient (REF) | payer MEDICARE, MEDICAID, SELFPAY ==
--- OUTSIDE RECORDS SUMMARY | 2025-07-03 12:10 | XMS_ITS | Clinical Summary ---
Author Organization [facility] Address [address] [place] [address] Phone Care Team Providers Care Lead Esthetician Name Role Phone Myke Silva MD Primary Care Provider [phone] Allergies No known active allergies Medications omeprazole [...] this topic Insurance Medicare Medicare Care Teams Lead Esthetician Relationship Specialty Start Date End Date Myke Silva MD [address] [place] PCP - General 11/11/20
[2025-07-03 13:56] LABS: Anion Gap 12 (12-20); Blood Urea Nitrogen 21 mg/dL (9-16); Carbon Dioxide 30 mmol/L (22-29); Chloride 106 mmol/L (96-108); Estimated Glomerular Filt Rate 49; Potassium 3.8 mmol/L (3.3-5.1); Sodium 144 mmol/L (135-145)
== END 2025-07-03 10:42 | disposition home or self-care (01) ==
LOC: HO.10HDL 10:41
PROVIDERS: Visit Provider Internal Medicine Nephrology
DX: I12.9 Hypertensive chronic kidney disease with stage 1 through stage 4 chronic kidney disease, or unspecified chronic kidney disease (principal); N18.32 Chronic kidney disease, stage 3b
CPT/HCPCS: 36415; 80051; 82565; 84520

== ENCOUNTER 2025-07-04 09:15 | Outpatient (AMB) | payer MEDICARE, MEDICAID, SELFPAY ==
--- NOTE | 2025-07-04 09:27 | HO.NEPHOV ---
Vital Signs 07/04/25 09:29 Height 5 ft 6 in Weight 149 lb 8 oz BMI 24.1 BP 150/60 H Blood Pressure Location Lt brachial Position Sitting Intake Visit Reasons: 6 MO FU-LVM Publishing Director Required: No Accompanied by: Self / Same As Patient Allergies alfuzosin Allergy (Mild, Verified 07/04/25 09:29) Vomiting HPI Comments Details: 88 years old man with CKD stage 3 at baseline. He had transurethral resection of bladder tumor by Dr. Mahajan. He undergoes treatment by Urology. He did not have any new complaints at the time of this office visit. He has history of CABG but denies any chest pain, palpitation, shortness of breath, proximal nocturnal dyspnea, orthopnea, pedal edema. He is compliant with his medications and otherwise feels well [facility] Medical History Bladder cancer CKD (chronic kidney disease) stage 3, GFR 30-59 ml/min Hyperlipidemia Gout Essential hypertension Diabetes Chronic renal disease Chronic renal insufficiency CAD (coronary artery disease) History of hematuria Surgical History History of transurethral resection of bladder tumor (TURBT) Hx of CABG FH: cholecystectomy Hx of hernia repair History of quadruple bypass Family History Sister Bipolar 1 disorder Mother Cancer Social History Household Members: None Housing: Apartment Are you a primary rn medicare to a significant other at home: No Do you presently have visiting nurse or other home services: No Alcohol intake: current Alcohol intake frequency: holidays/special occasions only Patient Tobacco Use Status: Former Tobacco user Tobacco use type: Cigar e-Cigarette/Vaping Use: Former Use Second Hand Smoke Exposure: No Advance Directives Date on File: 11/18/23 service: Yes Current occupational status: retired Cognitive needs: No Hearing needs: No Vision needs: Yes (rx glasses) Review of Systems Const All systems reviewed & are unremarkable except as noted in HPI and below Physical Exam Const General: comfortable and no acute distress Orientation/consciousness: patient oriented x3 HEENT Head: Yes normocephalic Mouth: Normal oral and palatal mucosa present Eyes EOM: EOMs intact bilaterally Neck Neck: Yes supple Resp Auscultation: clear to auscultation bilaterally Cardio Jugular venous distension: no JVD Rate: regular rate GI Palpation (GI): Soft to palpation Auscultation: normal bowel sounds General: Yes no CVA tenderness Back/Spine/Pelvis Back: no CVA tenderness Skin General skin exam: no rashes or lesions noted Neuro General: patient oriented x3 and moves all extremities Extrem General: Yes no pedal edema Results Reviewed Nephrology Results: Hgb, (14.0-18.0) 15.3 g/dl 05/11/25 WBC, (4.8-10.8) 6.7 X10*3/uL 05/11/25 Plt Count, (160-400) 181 X10*3/uL 05/11/25 Sodium, (135-145) 144 mmol/L 07/03/25 Potassium, (3.3-5.1) 3.8 mmol/L Δ 07/03/25 Chloride, (96-108) 106 mmol/L 07/03/25 Carbon Dioxide, (22-29) 30 mmol/L H 07/03/25 BUN, (9-16) 21 mg/dL H 07/03/25 Creatinine, (0.5-1.4) 1.37 mg/dL 07/03/25 Calcium, (8.4-10.2) 9.5 mg/dL 05/11/25 Urine Protein, (Neg-Trace) Negative mg/dL 04/11/25 Renal US 11/29/23 Assessment & Plan Assessment & Plan (1) Hypertension: Code(s): I10 - Essential (primary) hypertension Category: Medical Qualifiers: Hypertension type: primary hypertension Qualified Code(s): I10 - Essential (primary) hypertension (2) CKD (chronic kidney disease) stage 3, GFR 30-59 ml/min: Code(s): N18.30 - Chronic kidney disease, stage 3 unspecified Category: Medical Qualifiers: Chronic kidney disease stage 3 subtype: stage 3b (GFR 30-44) Qualified Code(s): N18.32 - Chronic kidney disease, stage 3b Plan He has stage chronic kidney disease 3 at baseline. His renal functions had been stable after holding lisinopril and hydrochlorothiazide. I increased his Amlodipine to 5 mg bid which I plan to combine to single tablet of 10 mg at next visit. I shall reintroduce low-dose of ANH-inhibitor, with time if his renal functions and serum potassium permits. His volume status is optimal. Urology colleagues are following him up. Follow-up blood work ordered follow-up appointment given .Answered all question Orders: Orders Creatinine 6 Months I10 - Essential (primary) hypertension, N18.32 - Chronic kidney disease, stage 3b Electrolytes 6 Months I10 - Essential (primary) hypertension, N18.32 - Chronic kidney disease, stage 3b Blood Urea Nitrogen 6 Months I10 - Essential (primary) hypertension, N18.32 - Chronic kidney disease, stage 3b Calcium 6 Months I10 - Essential (primary) hypertension, N18.32 - Chronic kidney disease, stage 3b Medications: Changed From amlodipine (Norvasc) 5 mg (2 x 2.5 mg) PO DAILY 90 days 180 tabs 4RF To amlodipine 5 mg PO BID 180 tabs 4RF 90 days Coding Level of Care Code Est Pt Level 4 (83713) Diagnoses Primary hypertension I10 Hypertension type: primary hypertension Stage 3b chronic kidney disease N18.32 Chronic kidney disease stage 3 subtype: stage 3b (GFR 30-44)
[2025-07-04 09:29] VITALS: BP 150/60; BMI 24.1
--- OUTSIDE RECORDS SUMMARY | 2025-07-04 09:58 | XMS_ITS | Patient Health Record ---
Author Organization [facility] Address [address] [place] [address] Care Team Providers Care Accounting Software Specialist Name Role Phone Cy Corea Unavailable [phone] Reason For Referral No Information Plan Of Treatment No Information
--- OUTSIDE RECORDS SUMMARY | 2025-07-04 09:58 | XMS_ITS | Clinical Summary ---
Author Organization [facility] Address [address] [place] [address] Phone Care Team Providers Care School Crossing Guard Supervisor Name Role Phone Myke Silva MD Primary Care Provider [phone] Allergies No known active allergies Medications omeprazole [...] this topic Insurance Medicare Medicare Care Teams School Crossing Guard Supervisor Relationship Specialty Start Date End Date Myke Silva MD [address] [place] PCP - General 11/11/20
== END 2025-07-04 09:46 | disposition home or self-care (01) ==
LOC: HO.HKA 09:15
PROVIDERS: PCP Internal Medicine; Visit Provider Internal Medicine Nephrology
DX: I10 Essential (primary) hypertension (principal); N18.32 Chronic kidney disease, stage 3b
CPT/HCPCS: 99214

== ENCOUNTER → 2025-07-04 09:15 | Outpatient (BNVA) | payer MEDICARE, MEDICAID, SELFPAY | PROVIDERS: PCP Internal Medicine; Visit Provider Internal Medicine Nephrology | DX: E11.22 Type 2 diabetes mellitus with diabetic chronic kidney disease (principal); I12.9 Hypertensive chronic kidney disease with stage 1 through stage 4 chronic kidney disease, or unspecified chronic kidney disease; N18.32 Chronic kidney disease, stage 3b | CPT/HCPCS: 99212 ==

== ENCOUNTER 2025-09-14 09:53 | Outpatient (REF) | payer MEDICARE, MEDICAID, SELFPAY ==
[2025-09-14 13:26] LABS: Hematocrit 45.6 % (42.0-52.0); Hemoglobin 15.3 g/dl (14.0-18.0); Mean Corpuscular HGB Conc 33.6 g/dl (31.0-36.0); Mean Corpuscular Hemoglobin 29.9 pg (27.0-33.0); Mean Corpuscular Volume 89.1 fL (80.0-98.0); NRBC Abs Auto 0.000 X10*3/uL (0.0-0.012); NRBC Pct Auto 0.0 /100WBC (0.0-0.2); Platelet Count 236 X10*3/uL (160-400); Red Blood Count 5.12 X10*6/uL (4.60-5.80); White Blood Count 10.3 X10*3/uL (4.8-10.8)
[2025-09-14 14:22] LABS: Alanine Aminotransferase 31 U/L (0-40); Albumin Level 4.2 g/dL (3.5-5.0); Alkaline Phosphatase 92 U/L (39-117); Anion Gap 13 (12-20); Aspartate Amino Transferase 27 U/L (5-37); Blood Urea Nitrogen 24 mg/dL (9-16); Calcium 9.2 mg/dL (8.4-10.2); Carbon Dioxide 25 mmol/L (22-29); Chloride 107 mmol/L (96-108); Cholesterol 111 mg/dL (<200); Estimated Glomerular Filt Rate 36; HDL Cholesterol 32 mg/dL (>40); Potassium 4.2 mmol/L (3.3-5.1); Sodium 141 mmol/L (135-145); Total Protein 6.8 g/dL (6.5-8.0); Triglycerides 116 mg/dL (<150)
[2025-09-14 14:23] LABS: Thyroid Stimulating Hormone 1.13 uIU/mL (0.32-4.0)
== END 2025-09-14 09:54 | disposition home or self-care (01) ==
LOC: HO.10HDL 09:53
PROVIDERS: Visit Provider Internal Medicine
DX: I10 Essential (primary) hypertension (principal); Z13.1 Encounter for screening for diabetes mellitus
CPT/HCPCS: 36415; 80048; 80061; 80076; 83036; 84443; 85027

== ENCOUNTER 2025-09-15 11:11 | Outpatient (REF) | payer MEDICARE, MEDICAID, SELFPAY ==
[2025-09-15 13:07] LABS: Microalbum/Creatinine Ratio Ur 630.9 ug/mg cr (<30)
== END 2025-09-15 11:12 | disposition home or self-care (01) ==
LOC: HO.LNP 11:11
PROVIDERS: Visit Provider Internal Medicine
DX: I10 Essential (primary) hypertension (principal)
CPT/HCPCS: 82043; 82570

== ENCOUNTER 2025-09-17 09:10 | Outpatient (AMB) | payer MEDICARE, MEDICAID, SELFPAY ==
--- NOTE | 2025-09-17 09:16 | MHC.PC.OV ---
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 Accompanied by: Self / Same As Patient Allergies alfuzosin Allergy (Mild, Verified 09/17/25 09:20) Vomiting Tobacco use date assessed: 03/19/25 Dental Screening Dental Screen Date: 03/19/25 FOR[facility]LY [facility] Medical History Bladder cancer CKD (chronic kidney disease) stage 3, GFR 30-59 ml/min Hyperlipidemia Gout Essential hypertension Diabetes Chronic renal disease Chronic renal insufficiency CAD (coronary artery disease) History of hematuria Surgical History History of transurethral resection of bladder tumor (TURBT) Hx of CABG FH: cholecystectomy Hx of hernia repair History of quadruple bypass Family History Sister Bipolar 1 disorder Mother Cancer Social History Household Members: None Housing: Apartment Are you a primary care taker to a significant other at home: No Do you presently have visiting nurse or other home services: No Alcohol intake: current Alcohol intake frequency: holidays/special occasions only Patient Tobacco Use Status: Former Tobacco user Tobacco use type: Cigar e-Cigarette/Vaping Use: Former Use Second Hand Smoke Exposure: No Advance Directives Date on File: 11/18/23 service: Yes Current occupational status: retired Cognitive needs: No Hearing needs: No Vision needs: Yes (rx glasses) Questionnaire PHQ-9 Over the last 2 weeks, how often have you been bothered by any of the following problems? 1. Little interest or pleasure in doing things: not at all 2. Feeling down, depressed, or hopeless: not at all 3. Trouble falling or staying asleep, or sleeping too much: not at all 4. Feeling tired or having little energy: not at all 5. Poor appetite or overeating: not at all 6. Feeling bad about yourself - or that you are a failure or have let yourself or your family down: not at all 7. Trouble concentrating on things, such as reading the newspaper or watching television: not at all 8. Moving or speaking so slowly that other people could have noticed. Or the opposite - being so fidgety or restless that you have been moving around a lot more than usual: not at all 9. Thoughts that you would be better off or of hurting yourself in some way: not at all Total score: 0 Depression Screening Interpretation: Negative Depression Screening Done: Yes Source: Developed by Drs. Cy Jasso, Iris Jackson, Brett Clemons and colleagues, with an educational shawna from [employer]. Thrive Questionnaire Date Thrive assessed: 03/19/25 I am a: Patient Within the past 12 months, did the food you bought not last and you didn't have the money to get more?: Never true Within the past 12 months, did you worry whether your food would run out before you got money to buy more?: Never true Do you have trouble paying for medicines?: No Do you have trouble getting transportation to medical appointments?: No Do you have trouble paying your heating and electricity bill?: No Do you have trouble taking care of your child, family member or friend?: No Do you have trouble with day-to-day activities such as bathing, preparing meals, shopping, managing finances, etc.?: No Are you currently unemployed and looking for a job?: No Are you interested in more education?: No Currently or been in a relationship where the following occur: No concerns reported THRIVE Score: 0 AUDIT C Alcohol Use Questionnaire (AUDIT-C) 1. How often do you have a drink containing alcohol?: Monthly or less 2. How many drinks containing alcohol do you have on a typical day when you are drinking?: 1 or 2 3. How often do you have six or more drinks on one occasion?: Less than monthly Total Score: 2 REYES-7 AMB Questionnaire REYES-7 Date REYES - 7 assessed: 03/19/25 Feeling nervous, anxious, or on edge: 0 = Not at all Not being able to stop or control worryin = Not at all Worrying too much about different things: 0 = Not at all Trouble relaxin = Not at all Being so restless that it is hard to sit still: 0 = Not at all Becoming easily annoyed or irritable: 0 = Not at all Feeling afraid as if something awful might happen: 0 = Not at all Total REYES-7 score (0-4 normal; 5-9 mild; 10-14 moderate; 15-21 severe): 0 Source: Developed by Drs. Cy Jasso, Iris Jackson, Brett Clemons and colleagues, with an educational shawna from [employer]. Physical exam (Primary Care) Vital Signs: Last Vital Signs Temp 98.0 F 09/17/25 09:17 Pulse 60 09/17/25 09:17 Resp 14 09/17/25 09:17 BP 129/60 09/17/25 09:17 Pulse Ox 98 09/17/25 09:17 Oxygen Delivery Method Room Air 09/17/25 09:17 BMI result Body Mass Index 24.8 Tobacco/Smoking Status: Tobacco use Status Tobacco use date assessed 03/19/25 09/17/25 09:19 Patient Tobacco Use Status Former Tobacco user 09/17/25 09:19 Tobacco use type Cigar 09/17/25 09:19 e-Cigarette/Vaping Use Former Use 09/17/25 09:19 PHQ-9: PHQ-9 Score PHQ-9: Total score 0 09/17/25 09:29 Depression Screening Interpretation: Negative Thrive Assessment: Date of Thrive Assessment Date Thrive assessed 03/19/25 09/17/25 09:19 Currently or been in a relationship where the following occur: No concerns reported Office Procedures Flu Questionnaire Does the patient have a severe egg allergy?: No Does the patient have severe life threatening allergies?: No Does the patient have a fever or illness today?: No Has the patient ever had Guillain-[place] Syndrome?: No Has the patient ever had any past reaction to a flu shot?: No Immunizations Fluarix [id number] (PF) 45 mcg (15 mcg x 3)/0.5 mL IM syringe Performing Provider: Adam Rodarte MD [facility] Documented (not given) by: FELI Andrews on 09/17/25 09:30 Reason Not Given: Patient Refused Coding Level of Care Code Est Pt Level 4 (85019) Complex EM visit Add On G2211 Diagnoses Bladder cancer C67.9 Assessment & Plan Assessment & Plan (1) Bladder cancer: Code(s): C67.9 - Malignant neoplasm of bladder, unspecified Category: Medical Plan: History of Present Illness - The patient is an 89-year-old male presenting for follow-up on his bladder cancer and new urinary symptoms. - He has a history of bladder cancer, for which he has undergone three surgeries, and is currently receiving intravesical chemotherapy infusions. - He completed his last of six treatments last . - A cystoscopy performed about two months ago revealed no new growths. - Approximately two weeks ago, the patient was treated with Bactrim for an infection. - Since his most recent chemotherapy infusion, he has developed a significant burning sensation and urinary frequency, occurring about every hour, prompting him to wear pads. - His medical history is also significant for hypertension and hyperlipidemia, for which he sees Dr. Shah. - His current medications include amlodipine, a statin, aspirin, and finasteride. - He was previously on hydrochlorothiazide, which was discontinued by his specialist. - He also reports taking a medication starting with 'M' for urinary urgency. - The patient also reports a history of dry skin, which has resolved with the use of a cream. Social History Review of Systems - Genitourinary: Reports dysuria, urinary frequency approximately every hour, and urinary urgency. - He is using incontinence pads. - Integumentary: Reports history of dry skin that resolved with cream. Physical Exam General: Cooperative and healthy appearing Nutritional Appearance: Well nourished Orientation/consciousness: Patient oriented x3 Limitations: No limitations Head: Normal to inspection General: Appearance normal, both eyes and all related structures Neck: Normal visual inspection Chest: Normal palpation of entire chest wall Respiratory: Normal respiratory effort Neurology: Patient oriented x3 Results - Labs from 09/14: Blood work showed no anemia, good A1c, and slightly elevated kidney function. - Urinalysis from 09/15: No infection was checked on the sample. Plan - Will prescribe a seven-day course of antibiotics for a presumed urinary tract infection. - Will prescribe Pyridium for dysuria and urinary frequency. - Will order repeat blood work for the first week of October to reassess kidney function. - Patient to continue amlodipine, statin, aspirin, and finasteride. - Advised patient to obtain a high-dose influenza vaccine. - Patient to continue using cream as needed for dry skin. - Schedule follow-up appointment in three months. Discussion Notes I discussed with the patient that his symptoms of urinary burning and frequency are likely due to a bladder infection, which can occur after his chemotherapy infusions. I explained the plan to treat this empirically with a 7-day course of antibiotics and also prescribe Pyridium to reduce bladder irritation and discomfort. I cautioned him that Pyridium will cause his urine to turn orange and that this is an expected side effect, not blood. We reviewed his recent lab work, noting the slight elevation in kidney function, which is likely related to his chemotherapy and hydration status. I recommended repeating these labs in early October to monitor this, rather than waiting for his next specialist appointment. I advised him to continue his current medications for blood pressure and cholesterol and to obtain his high-dose flu shot. We agreed to a follow-up visit in three months. The patient provided consent to use a recording device to assist with clinical documentation. Patient Instructions - Take the new antibiotic for seven days as prescribed to treat your bladder infection. - Take the medication called Pyridium to help with the burning and the urge to urinate. - Be aware that this medication will make your urine orange; this is normal and is not blood. - Continue taking your routine medications for blood pressure, cholesterol, and prostate. - Please go for blood work in the first week of October to recheck your kidney function. - Get your high-dose flu shot for seniors, which you can get at a pharmacy like [facility]. - Continue using the cream for your dry skin if needed. - Please schedule a follow-up appointment to be seen here again in three months. Orders: Orders Influenza [id number] Immunization Today Z23 - Encounter for immunization Medications: New sulfamethoxazole-trimethoprim 800-160 mg (Bactrim DS) 1 tab PO BID 14 tabs 0RF 7 days phenazopyridine (Pyridium) 200 mg PO TID 9 tabs 0RF 3 days
[2025-09-17 09:17] VITALS: BP 129/60; PULSE 60; RESP 14; TEMP 36.7; O2SAT 98; BMI 24.8
== END 2025-09-17 09:48 | disposition home or self-care (01) ==
LOC: HO.HMCSH 09:10
PROVIDERS: PCP Internal Medicine; Visit Provider Internal Medicine
DX: C67.9 Malignant neoplasm of bladder, unspecified (principal); Z23 Encounter for immunization

== ENCOUNTER → 2025-09-17 09:10 | Outpatient (BNVA) | payer MEDICARE, MEDICAID, SELFPAY | PROVIDERS: PCP Internal Medicine; Visit Provider Internal Medicine | DX: C67.9 Malignant neoplasm of bladder, unspecified (principal); Z28.21 Immunization not carried out because of patient refusal | CPT/HCPCS: 90471; 96127; 99212 ==

== ENCOUNTER 2025-09-24 11:18 | Outpatient (AMB) | payer MEDICARE, MEDICAID, SELFPAY ==
[2025-09-24 11:20] VITALS: BP 121/57; PULSE 55; RESP 14; TEMP 36.4; O2SAT 96; BMI 25.3
--- NOTE | 2025-09-24 11:20 | A.OFFPC_ITS ---
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 - The patient believes the rash started after taking an antibiotic prescribed by another provider two weeks prior, and the rash has since spread after starting the same medication again. - The patient initially thought the rash on the arms was just dry skin, but new spots have appeared on the legs and also on the upper body. - The rash was previously itchy, but the pruritus has since resolved. - The patient was taking the antibiotic for a burning sensation, which has now resolved. - The patient stopped taking the antibio tic after four days of a seven-day course. - The patient has a history of a prior a dverse drug reaction that affected creatinine levels, requiring a three-day hospitalization for infusions. Social History Results [facility] Medical History Bladder cancer CKD (chronic kidney disease) stage 3, GFR 30-59 ml/min Hyperlipidemia Gout Essential hypertension Diabetes Chronic renal disease Chronic renal insufficiency CAD (coronary artery disease) History of hematuria Surgical History History of transurethral resection of bladder tumor (TURBT) Hx of CABG FH: cholecystectomy Hx of hernia repair History of quadruple bypass Family History Sister Bipolar 1 disorder Mother Cancer Social History Household Members: None Housing: Apartment Are you a primary wound care physician to a significant other at home: No Do you presently have visiting nurse or other home services: No Alcohol intake: current Alcohol intake frequency: holidays/special occasions only Patient Tobacco Use Status: Former Tobacco user Tobacco use type: Cigar e-Cigarette/Vaping Use: Former Use Second Hand Smoke Exposure: No Advance Directives Date on File: 11/18/23 service: Yes Current occupational status: retired Cognitive needs: No Hearing needs: No Vision needs: Yes (rx glasses) Questionnaire PHQ-9 Over the last 2 weeks, how often have you been bothered by any of the following problems? 1. Little interest or pleasure in doing things: not at all 2. Feeling down, depressed, or hopeless: not at all 3. Trouble falling or staying asleep, or sleeping too much: not at all 4. Feeling tired or having little energy: not at all 5. Poor appetite or overeating: not at all 6. Feeling bad about yourself - or that you are a failure or have let yourself or your family down: not at all 7. Trouble concentrating on things, such as reading the newspaper or watching television: not at all 8. Moving or speaking so slowly that other people could have noticed. Or the opposite - being so fidgety or restless that you have been moving around a lot more than usual: not at all 9. Thoughts that you would be better off or of hurting yourself in some way: not at all Total score: 0 Depression Screening Interpretation: Negative Depression Screening Done: Yes Source: Developed by Drs. Cy Jasso, Iris Jackson, Brett Clemons and colleagues, with an educational shawna from [employer]. Thrive Questionnaire Date Thrive assessed: 03/19/25 I am a: Patient Within the past 12 months, did the food you bought not last and you didn't have the money to get more?: Never true Within the past 12 months, did you worry whether your food would run out before you got money to buy more?: Never true Do you have trouble paying for medicines?: No Do you have trouble getting transportation to medical appointments?: No Do you have trouble paying your heating and electricity bill?: No Do you have trouble taking care of your child, family member or friend?: No Do you have trouble with day-to-day activities such as bathing, preparing meals, shopping, managing finances, etc.?: No Are you currently unemployed and looking for a job?: No Are you interested in more education?: No Currently or been in a relationship where the following occur: No concerns reported THRIVE Score: 0 AUDIT C Alcohol Use Questionnaire (AUDIT-C) 1. How often do you have a drink containing alcohol?: Monthly or less 2. How many drinks containing alcohol do you have on a typical day when you are drinking?: 1 or 2 3. How often do you have six or more drinks on one occasion?: Less than monthly Total Score: 2 REYES-7 AMB Questionnaire REYES-7 Date REYES - 7 assessed: 03/19/25 Feeling nervous, anxious, or on edge: 0 = Not at all Not being able to stop or control worryin = Not at all Worrying too much about different things: 0 = Not at all Trouble relaxin = Not at all Being so restless that it is hard to sit still: 0 = Not at all Becoming easily annoyed or irritable: 0 = Not at all Feeling afraid as if something awful might happen: 0 = Not at all Total REYES-7 score (0-4 normal; 5-9 mild; 10-14 moderate; 15-21 severe): 0 Source: Developed by Drs. Cy Jasso, Iris Jackson, Brett Clemons and colleagues, with an educational shawna from [employer]. Review of Systems Narrative Review of Systems - Constitutional: Reports feeling okay. - Integumentary: Reports a new rash on the legs and arms. - Genitourinary: Reports resolution of a previous burning sensation. Physical exam (Primary Care) Vital Signs: Last Vital Signs Temp 97.5 F 09/24/25 11:20 Pulse 55 09/24/25 11:20 Resp 14 09/24/25 11:20 BP 121/57 L 09/24/25 11:20 Pulse Ox 96 09/24/25 11:20 Oxygen Delivery Method Room Air 09/24/25 11:20 BMI result Body Mass Index 25.3 Tobacco/Smoking Status: Tobacco use Status Tobacco use date assessed 03/19/25 09/24/25 11:21 Patient Tobacco Use Status Former Tobacco user 09/24/25 11:21 Tobacco use type Cigar 09/24/25 11:21 e-Cigarette/Vaping Use Former Use 09/24/25 11:21 PHQ-9: PHQ-9 Score PHQ-9: Total score 0 09/24/25 11:37 Depression Screening Interpretation: Negative Thrive Assessment: Date of Thrive Assessment Date Thrive assessed 03/19/25 09/24/25 11:21 Currently or been in a relationship where the following occur: No concerns reported Narrative Physical Exam General: Cooperative and healthy appearing Nutritional Appearance: Well nourished Orientation/consciousness: Patient oriented x3 Limitations: No limitations Head: Normal to inspection General: Appearance normal, both eyes and all related structures Neck: Normal visual inspection Chest: Normal palpation of entire chest wall Respiratory: Normal respiratory effort Neurology: Patient oriented x3 Ext; Discrete erythematous lesions on the lower ext, bilateral, from the foot upto the knees. Each lesion is oval in shaped and has no overlying scales Coding Level of Care Code Complex visit Add On G2211 Diagnoses Rash R21 Assessment & Plan Assessment & Plan (1) Rash: Code(s): R21 - Rash and other nonspecific skin eruption Plan Plan - The current antibiotic will be discontinued due to a suspected allergic reaction. - The medication will be added to the patient's allergy list. - A prescription for prednisone will be sent to the pharmacy; the patient is to take two pills at once for the next three days. - A prescription for a steroid cream will be sent to the pharmacy; the patient is to apply it to the affected areas twice a day. Discussion Notes I discussed with the patient that the erythematous rash on the patient's legs and arms is likely a reaction to the antibiotic the patient has been taking. I advised the patient to stop the antibiotic immediately, and I will add this m edication to the patient's allergy profile to avoid future exposure. To treat the rash, I have prescribed oral prednisone to be taken as two pills at once for three days, and a topical steroid cream to be applied twice daily. Patient Instructions - Stop taking your current antibiotic. - A prescription for prednisone pills has been sent to your pharmacy. - Take two prednisone pills together one time a day for the next three days. - A prescription for a steroid cream has also been sent to your pharmacy. - Apply the cream to the rash twice a day. Medications: New triamcinolone acetonide 0.025% 1 appl topical BID 15 grams 0RF prednisone 40 mg (2 x 20 mg) PO DAILY 6 tabs 0RF 3 days
--- OUTSIDE RECORDS SUMMARY | 2025-09-24 14:47 | XMS_ITS | Clinical Summary ---
Author Organization [facility] Address [address] [place] [address] Phone Care Team Providers Care Senior Visual Designer Name Role Phone Myke Silva MD Primary [...] this topic Insurance Medicare Medicare Care Teams Senior Visual Designer Relationship Specialty Start Date End Date Myke Silva MD [id number] [place] PCP - General 11/11/20
== END 2025-09-24 11:52 | disposition home or self-care (01) ==
LOC: HO.HMCSH 11:18
PROVIDERS: PCP Internal Medicine; Visit Provider Internal Medicine
DX: R21 Rash and other nonspecific skin eruption (principal)

== ENCOUNTER → 2025-09-24 11:18 | Outpatient (BNVA) | payer MEDICARE, MEDICAID, SELFPAY | PROVIDERS: PCP Internal Medicine; Visit Provider Internal Medicine | DX: R21 Rash and other nonspecific skin eruption (principal) | CPT/HCPCS: 99212 ==